=== PATIENT | female | born 1990 | race Caucasian/White ===

== ENCOUNTER 2016-10-30 13:14 | Emergency (ER) | payer OTHER ==
[~2016-10-30] VITALS: Ht 165.1 cm; Wt 88.0 kg
[~2016-10-30 13:14] MED LIST: ETONMIS VAGRING; SUMA25TA12 PO; TOPI25TA99 PO; TRAM-10 PO
[2016-10-30 13:16] VITALS: TEMP 36.8; Ht 165.1 cm; Wt 88.0 kg
[2016-10-30] MEDS ORDERED: KETOROLAC TROMETHAMINE 30 MG/ML VIAL IV STA (13:36)
[2016-10-30] MEDS ORDERED: DiphenhydrAMINE HCL 50 MG/ML VIAL IV STA (13:36)
[2016-10-30] MEDS ORDERED: SODIUM CHLORIDE 0.9% 1000ML 1,000 ML IV STA (13:36)
[2016-10-30] MEDS ORDERED: DEXAMETHASONE SOD INJ 10 MG/ML VIAL IV STA (13:36)
[2016-10-30] MEDS ORDERED: PROCHLORPERAZINE 5 MG/ML 2 ML VIAL IV STA (13:36)
--- NOTE | 2016-10-30 13:46 | EMERGENCY ROOM VISIT NOTE ---
History Report prepared by Vee: Phill Umanzor Under the Supervision of: Dr. Cameron Marin M.D. First contact with patient: 13:29 Chief Complaint: HEADACHE Stated Complaint: MIGRAINE, SEEING THINGS, MEMORY LOSS History of Present Illness The patient is a 26 year old female who presents to the Emergency Room with complaints of intermittent headaches beginning about 2 to 3 weeks ago. She has had headaches before like this, and was referred to the ER after calling her neurologist 2 days ago. She describes the pain as shooting, and reports some pain with moving her head. She denies having any neck pain. The patient took Imitrex about 2 hours ago. Source of History: patient Onset: about 2 to 3 weeks ago Position: head Quality: other (shooting) Timing: intermittent Modifying Factors (Worsening): movement (of the head) Associated Symptoms: No neck pain Review of Systems See HPI for pertinent positives & negatives. A total of 10 systems reviewed and were otherwise negative. Past Medical & Surgical Medical Problems: (1) Allergic reaction (2) anaphylaxis/, seizure (3) Anxiety (4) Asthma (5) Asthma, Unspecified (6) Bipolar I disorder (7) Contusion of multiple sites (8) Fall (9) Gallstones (10) Headache (11) Mast cell disorder (12) Ovarian cyst (13) Seizure-like activity Surgical Problems: (1) History of colonoscopy Family History Cancer Diabetes mellitus Endometriosis MOTHER Heart disease Hypertrophic cardiomyopathy FATHER aunt Kidney disease Kidney stones Lung disease PCOS SISTER Social History Smoking Status: Never Smoker Alcohol Use: none Drug Use: none Marital Status: Housing Status: lives with family Occupation Status: unemployed Current/Historical Medications Scheduled Albuterol Sulfate (Albuterol Sulfate Er), 4 MG PO BID Cromolyn Sodium (Mastocytosis) (Cromolyn Sodium), 10 ML PO QID Fluoxetine (Prozac), 60 MG PO DAILY Fluticasone Furoate-Vilanterol (Breo Ellipta 200-25 Mcg/INH), 1 PUFF INH DAILY Gabapentin (Gabapentin), 600 MG PO TID Loratadine (Claritin), 10 MG PO DAILY Metoprolol Tartrate (Lopressor) (Lopressor), 50 MG PO UD Midodrine Hcl (Midodrine Hcl), 5 MG PO QID Midodrine Hcl (Midodrine Hcl), 10 MG PO QID Montelukast Sod (Montelukast Sodium), 10 MG PO BID Pantoprazole (Protonix), 40 MG PO DAILY Prazosin HCl (Prazosin HCl), 1 MG PO HS Ranitidine Hcl (Zantac), 300 MG PO BID Sumatriptan Succinate (Imitrex), 100 MG PO PRN Topiramate (Topamax), 100 MG PO BIDM Scheduled PRN Albuterol Hfa (Ventolin Hfa), 2 PUFFS INH Q4-6HRS PRN for Wheezing Albuterol Sulf (Proventil 0.083% 2.5MG/3ML), 3 ML NEB QID PRN for SOB/Wheezing Diphenhydramine Hcl (Benadryl Allergy), 25-75 MG PO UD PRN for ALLERGIC REACTION Epinephrine (Epipen), 0.3 MG IM UD PRN for ALLERGIC REACTION Lorazepam (Lorazepam), 1 MG PO Q6H PRN for Anxiety Prochlorperazine Maleate (Compazine), 10 MG PO QID PRN for Nausea Trazodone Hcl (Trazodone), 50 MG PO HS PRN for Sleep Allergies Coded Allergies: Cetirizine (Verified Allergy, Severe, anapyhylaxis, 10/30/16) Hydroxyzine (Verified Allergy, Severe, anaphylaxis, 10/30/16) Quercetin (Verified Allergy, Severe, ANAPHYLAXIS, 08/05/16) Ziprasidone (Verified Allergy, Severe, Anaphylaxis, 08/05/16) Reported by PT Aripiprazole (Verified Allergy, Intermediate, ., 10/30/16) BEE STING (Verified Allergy, Intermediate, anaphylaxis, 10/30/16) Lurasidone (Verified Allergy, Intermediate, ., 10/30/16) Cefaclor (Verified Allergy, Mild, ANAPHYLAXIS, 10/30/16) CI Pigment Blue 63 (Verified Allergy, Unknown, ANAPHYLAXIS, 10/30/16) Clonazepam (Verified Allergy, Unknown, anaphylaxis, 10/30/16) Dexlansoprazole (Verified Allergy, Unknown, ANAPHYLAXIS, 10/30/16) Doxycycline (Verified Allergy, Unknown, UNKNOWN, 10/30/16) Iodinated Diagnostic Agents (Verified Allergy, Unknown, ANAPHYLAXIS, ) must have pretreats, Red Dye (Verified Allergy, Unknown, ANAPHYLAXIS, 10/30/16) Uncoded Nonscreenable Allergen (Verified Allergy, Unknown, ETHLYENEDIAMINE DIHYDROCHLORIDE- A COMMUNITY NUTRITION EDUCATOR GENERIC DRUGS, 10/30/16) ETHLYENEDIAMINE DIHYDROCHLORIDE- A COMMUNITY NUTRITION EDUCATOR GENERIC DRUGS: CAUSES ANAPHYLAXIS Physical Exam Vital Signs Date Time Temp Pulse Resp B/P Pulse Ox O2 Delivery O2 Flow Rate FiO2 10/30/16 15:04 54 18 129/68 99 Room Air 10/30/16 13:16 36.8 108 16 166/100 95 Room Air Physical Exam GENERAL: Patient is a healthy-appearing well-nourished female. No evidence of meningitis or encephalitis on exam. HEAD: Normocephalic atraumatic EYES: Ocular movements intact pupils equal and react to light OROPHARYNX mucous membranes are moist no exudates present no erythema or edema present NECK: Supple no nuchal rigidity CHEST: Good equal expansion LUNGS: Clear and equal to auscultation CARDIAC: Normal S1 and S2 ABDOMEN: Soft nontender no guarding BACK: No CVA tenderness EXTREMITIES: No pain upon palpation normal muscle strength in all groups no clubbing cyanosis or edema NEURO: Patient is following commands is answering questions appropriately. Alert and oriented x3 Cranial Nerves 2-12 grossly intact No evidence of meningitis or encephalitis on exam Medical Decision & Procedures Medications Administered Medications (Trade) Dose Ordered Sig/Geeta Route Start Time Stop Time Status Last Admin Dose Admin Sodium Chloride (Nss 1000ml) 1,000 ml @ 999 mls/hr Q1H1M STAT IV 10/30/16 13:36 10/30/16 14:36 DC 10/30/16 14:26 999 MLS/HR Prochlorperazine Edisylate (Compazine Inj) 10 mg NOW STAT IV 10/30/16 13:36 10/30/16 13:38 DC 10/30/16 14:30 10 MG Diphenhydramine HCl (Benadryl Inj) 50 mg NOW STAT IV 10/30/16 13:36 10/30/16 13:38 DC 10/30/16 14:29 50 MG Ketorolac Tromethamine (Toradol Inj) 30 mg NOW STAT IV 10/30/16 13:36 10/30/16 13:38 DC 10/30/16 13:36 30 MG Dexamethasone Sodium Phosphate (Decadron Inj) 10 mg NOW STAT IV 10/30/16 13:36 10/30/16 13:38 DC 10/30/16 14:31 10 MG ED Course 1331: Past medical records reviewed. The patient was evaluated in room C11B. A complete history and physical examination was performed. 1336: Ordered Decadron Inj 10 mg IV, Toradol Inj 30 mg IV, Benadryl Inj 50 mg IV , Compazine Inj 10 mg IV, and NSS 1,000 ml @ 999 mls/hr IV. 1418: The patient had a minor pseudo seizure while IV was being placed. 1550: Upon reexamination the patient is doing well. I discussed results and treatment plan with the patient. She verbalizes agreement and understanding. The patient is ready for discharge. Medical Decision Differential diagnosis: Etiologies such as migraine headache, meningitis, sinusitis, CO exposure, ICH, SAH, infection, tumor, headache, sinus thrombosis, arterial dissection, as well as others were entertained. This is a 26-year-old female who presents emergency department complaining of headache. The patient has had headaches similar to this when the past. She denies any evidence of meningitis encephalitis on examination. An IV was established, the patient given normal saline bolus, Toradol, Compazine, Benadryl , Decadron. Repeat examination at improvement patient's symptoms. I do believe that the patient is well enough to be discharged home for follow-up with Dr. Scott. Patient and family were in agreement with treatment plan. Impression Primary Impression: Headache Scribe Attestation The scribe's documentation has been prepared under my direction and personally reviewed by me in its entirety. I confirm that the note above accurately reflects all work, treatment, procedures, and medical decision making performed by me. Departure Information Dispostion Home / Self-Care Referrals Hoa Moeller D.O. (PCP) Patient Instructions Headache Pain, My [facility] Additional Instructions You have been examined and treated today on an emergency basis only. This is not a substitute for, or an effort to provide, complete comprehensive medical care. It is impossible to recognize and treat all injuries or illnesses in a single emergency department visit. It is therefore important that you follow up closely with Dr Moeller. Call as soon as possible for an appointment. Thank you for your time and consideration. I look forward to speaking with you again soon. Please don't hesitate to call us if you have any questions.
[2016-10-30] MEDS ORDERED: TOPI100T45 PO (14:12)
[2016-10-30 15:59] VITALS: BP 119/79; PULSE 69; O2SAT 97
[2016-11-05] MEDS ORDERED: MIDO5TAB PO (16:14)
[2016-11-05] MEDS ORDERED: METO50TA16 PO (20:25)
[2016-12-20] MEDS ORDERED: EPP3/2 IM (15:33)
[2016-12-20] MEDS ORDERED: FLUO20CA35 PO (15:59)
[2016-12-20] MEDS ORDERED: ALBU4TAB5 PO (20:25)
[2017-03-27] MEDS ORDERED: TRAZ50TA35 PO (14:13)
[2017-05-09] MEDS ORDERED: BUPRTAB PO (02:07)
[2017-05-09] MEDS ORDERED: PROC1TAB5 PO (10:51)
[2017-05-09] MEDS ORDERED: PRZ1 PO (10:52)
[2017-05-09] MEDS ORDERED: FLUT1INH7 INH (13:03)
[2017-05-09] MEDS ORDERED: CLR10 PO (13:07)
[2017-05-09] MEDS ORDERED: DIPH25CA65 PO (13:13)
[2017-05-09] MEDS ORDERED: SUMA100T16 PO (14:12)
== END 2016-10-30 16:00 | disposition home or self-care (01) ==
LOC: C.EDB 13:15 → C.EDC 16:00
DX: R51 Headache (principal); F41.9 Anxiety disorder, unspecified; J45.909 Unspecified asthma, uncomplicated; F31.9 Bipolar disorder, unspecified; D89.40 Mast cell activation, unspecified; N83.209 Unspecified ovarian cyst, unspecified side; Z83.3 Family history of diabetes mellitus; Z84.1 Family history of disorders of kidney and ureter

== ENCOUNTER 2016-11-05 20:29 | Emergency (ER) | payer OTHER ==
[~2016-11-05 20:29] MED LIST changes: -ETONMIS VAGRING; +METO50TA16 PO; +MIDO5TAB PO; -SUMA25TA12 PO; +TOPI100T45 PO; -TOPI25TA99 PO; -TRAM-10 PO
[2016-11-05 20:36] VITALS: TEMP 37.1; Ht 162.6 cm
[2016-11-05] MEDS ORDERED: SODIUM CHLORIDE 0.9% 1000ML 1,000 ML IV STA (21:04)
[2016-11-05] MEDS ORDERED: KETOROLAC TROMETHAMINE 30 MG/ML VIAL IV STA (21:04)
[2016-11-05] MEDS ORDERED: DiphenhydrAMINE HCL 50 MG/ML VIAL IV STA (21:04)
[2016-11-05] MEDS ORDERED: PROCHLORPERAZINE 5 MG/ML 2 ML VIAL IV STA (21:04)
[2016-11-05] MEDS ORDERED: DEXAMETHASONE SOD INJ 10 MG/ML VIAL IV ONE (21:15)
[2016-11-05] MEDS ORDERED: TOPI100T20 PO (21:31)
--- NOTE | 2016-11-05 21:55 | EMERGENCY ROOM VISIT NOTE ---
History Report prepared by Vee: Linnette Gonzales Under the Supervision of: Dr. Cameron Londono D.O. First contact with patient: 20:57 Chief Complaint: HEADACHE Stated Complaint: SEVERE MIGRAINE,PSYCH BREAKS WITH MIGRAINE History of Present Illness The patient is a 26 year old female who presents to the Emergency Room with complaints of constant headache for the past couple of hours. Her pain is located in the back of her head and behind her left eye. She has a history of migraine headaches, but states that she has been having more frequent migraines over the past two weeks. She saw her neurologist six days ago where they put her on a steroid. Today is the last day of her steroid. The patient states that the symptoms are similar to those of previous migraines except that they are worse. Per , the patient is having worsening "psychotic breaks...breaks from reality" and "pseudo-seizures" than she usually has with her migraine headaches. The patient called her neurologist and they instructed her to come here to the ED tonight to get her pain under control and they will follow-up with the patient in the office in 2 days. She is taking Compazine as needed. She rates her current pain as an 8/10 in severity. Source of History: patient Onset: couple of hours Position: head Symptom Intensity: 8/10 Timing: constant Note: Per , the patient is having worsening "psychotic breaks...breaks from reality" and "pseudo-seizures" than she usually has with her migraine headaches. Review of Systems See HPI for pertinent positives & negatives. A total of 10 systems reviewed and were otherwise negative. Past Medical & Surgical Medical Problems: (1) Allergic reaction (2) anaphylaxis/, seizure (3) Anxiety (4) Asthma (5) Asthma, Unspecified (6) Bipolar I disorder (7) Contusion of multiple sites (8) Fall (9) Gallstones (10) Headache (11) Mast cell disorder (12) Ovarian cyst (13) Seizure-like activity Surgical Problems: (1) History of colonoscopy Family History Cancer Diabetes mellitus Endometriosis MOTHER Heart disease Hypertrophic cardiomyopathy FATHER aunt Kidney disease Kidney stones Lung disease PCOS SISTER Social History Smoking Status: Never Smoker Alcohol Use: none Drug Use: none Marital Status: Housing Status: lives with family Occupation Status: unemployed Current/Historical Medications Scheduled Albuterol Sulfate (Albuterol Sulfate Er), 4 MG PO BID Cromolyn Sodium (Mastocytosis) (Cromolyn Sodium), 10 ML PO QID Fluoxetine (Prozac), 60 MG PO DAILY Fluticasone Furoate-Vilanterol (Breo Ellipta 200-25 Mcg/INH), 1 PUFF INH DAILY Gabapentin (Gabapentin), 600 MG PO TID Metoprolol Tartrate (Lopressor) (Lopressor), 50 MG PO UD Midodrine Hcl (Midodrine Hcl), 5 MG PO QID Midodrine Hcl (Midodrine Hcl), 10 MG PO QID Montelukast Sod (Montelukast Sodium), 10 MG PO BID Pantoprazole (Protonix), 40 MG PO DAILY Prazosin HCl (Prazosin HCl), 1 MG PO HS Ranitidine Hcl (Zantac), 300 MG PO BID Sumatriptan Succinate (Imitrex), 100 MG PO PRN Topiramate (Topamax), 100 MG PO QAM Topiramate (Topamax), 200 MG PO HS Scheduled PRN Albuterol Hfa (Ventolin Hfa), 2 PUFFS INH Q4-6HRS PRN for Wheezing Albuterol Sulf (Proventil 0.083% 2.5MG/3ML), 3 ML NEB QID PRN for SOB/Wheezing Diclofenac (Voltaren), 50 MG PO TID PRN for Pain Diphenhydramine Hcl (Benadryl Allergy), 25-75 MG PO UD PRN for ALLERGIC REACTION Epinephrine (Epipen), 0.3 MG IM UD PRN for ALLERGIC REACTION Loratadine (Claritin), 10 MG PO DAILY PRN for ALLERGIC REACTION Lorazepam (Lorazepam), 1 MG PO Q6H PRN for Anxiety Prochlorperazine Maleate (Compazine), 10 MG PO QID PRN for Nausea Trazodone Hcl (Trazodone), 50 MG PO HS PRN for Sleep Allergies Coded Allergies: Cetirizine (Verified Allergy, Severe, anapyhylaxis, 11/05/16) Hydroxyzine (Verified Allergy, Severe, anaphylaxis, 11/05/16) Quercetin (Verified Allergy, Severe, ANAPHYLAXIS, 11/05/16) Ziprasidone (Verified Allergy, Severe, Anaphylaxis, 11/05/16) Reported by PT Aripiprazole (Verified Allergy, Intermediate, ., 11/05/16) BEE STING (Verified Allergy, Intermediate, anaphylaxis, 11/05/16) Lurasidone (Verified Allergy, Intermediate, ., 11/05/16) Cefaclor (Verified Allergy, Mild, ANAPHYLAXIS, 11/05/16) CI Pigment Blue 63 (Verified Allergy, Unknown, ANAPHYLAXIS, 11/05/16) Clonazepam (Verified Allergy, Unknown, anaphylaxis, 11/05/16) Dexlansoprazole (Verified Allergy, Unknown, ANAPHYLAXIS, 11/05/16) Doxycycline (Verified Allergy, Unknown, UNKNOWN, 11/05/16) Iodinated Diagnostic Agents (Verified Allergy, Unknown, ANAPHYLAXIS, ) must have pretreats, Red Dye (Verified Allergy, Unknown, ANAPHYLAXIS, 11/05/16) Uncoded Nonscreenable Allergen (Verified Allergy, Unknown, ETHLYENEDIAMINE DIHYDROCHLORIDE- A LOAF COUNTER GENERIC DRUGS, 11/05/16) ETHLYENEDIAMINE DIHYDROCHLORIDE- A LOAF COUNTER GENERIC DRUGS: CAUSES ANAPHYLAXIS Physical Exam Vital Signs Date Time Temp Pulse Resp B/P Pulse Ox O2 Delivery O2 Flow Rate FiO2 11/05/16 20:36 37.1 64 20 125/65 99 Room Air Physical Exam CONSTITUTIONAL/VITAL SIGNS: Reviewed / noted above. GENERAL: Non-toxic in appearance. INTEGUMENTARY: Warm, dry, and [place]. HEAD: Normocephalic. EYES: without scleral icterus or trauma. ENT/OROPHARYNX: clear and moist. LYMPHADENOPATHY/NECK: Is supple without lymphadenopathy or meningismus. RESPIRATORY: Lungs clear and equal. CARDIOVASCULAR: Regular rate and rhythm. GI/ABDOMEN: Soft and nontender. No organomegaly or pulsatile mass. No rebound or guarding. Normal bowel sounds. EXTREMITIES: Warm and well perfused. BACK: No CVA tenderness. NEUROLOGICAL: Intact without focal deficits. PSYCHIATRIC: normal affect. MUSCULOSKELETAL: Normally developed with good muscle tone. Medical Decision & Procedures Medications Administered Medications (Trade) Dose Ordered Sig/Geeta Route Start Time Stop Time Status Last Admin Dose Admin Sodium Chloride (Nss 1000ml) 1,000 ml @ 999 mls/hr Q1H1M STAT IV 11/05/16 21:04 11/05/16 22:04 11/05/16 21:14 999 MLS/HR Prochlorperazine Edisylate (Compazine Inj) 10 mg NOW STAT IV 11/05/16 21:04 11/05/16 21:07 DC 11/05/16 21:26 10 MG Diphenhydramine HCl (Benadryl Inj) 50 mg NOW STAT IV 11/05/16 21:04 11/05/16 21:07 DC 11/05/16 21:26 50 MG Ketorolac Tromethamine (Toradol Inj) 30 mg NOW STAT IV 11/05/16 21:04 11/05/16 21:07 DC 11/05/16 21:26 30 MG Dexamethasone Sodium Phosphate (Decadron Inj) 10 mg NOW ONCE IV 11/05/16 21:15 11/05/16 21:16 DC 11/05/16 21:26 10 MG ED Course 2058: Previous medical records were reviewed. The patient was evaluated in room C7. A complete history and physical examination was performed. 2103: Toradol 30 mg IV, Benadryl 50 mg IV, Compazine 10 mg IV, NSS 1000 ml @ 999 mls/hr IV 2114: Decadron 10 mg IV 2152: I reassessed the patient at this time. She is feeling better and resting comfortably. I discussed the results and treatment plan with the patient. I answered all pertaining questions that she had. She expressed understanding and verbalized agreement. The patient will be discharged home. Medical Decision Differential includes: Acute intracranial bleed, trauma, meningitis, encephalitis, increased intracranial pressure, mass or mass effect, facial or dental infection, temporal arteritis, CVA, TIA, acute hypertensive emergency, sinusitis, carbon monoxide exposure. This is a 26-year-old female who presents to the ED with a chief complaint of a headache. The patient reports a history of migraines. She has recently been seeing her neurologist. She states that her migraine started 2 hours ago. She has had increasing events of migraines with past couple of weeks. She saw her neurologist on Monday and is due to see her neurologist this week, Dr. Scott. The patient states that she was placed on steroids. Today is her last day. She also has when necessary Compazine and recently has been given diclofenac. The patient's migraine is mostly on the left side. It is similar to prior migraines. Denies any fevers, recent illness or trauma. Vital signs are normal. Physical exam was unremarkable. The patient was treated with IV fluids , IV Toradol, IV Benadryl, IV Decadron IV Compazine. This has worked well for her in the past. She was feeling better and was felt to be stable for discharge. Impression Primary Impression: Migraine Scribe Attestation The scribe's documentation has been prepared under my direction and personally reviewed by me in its entirety. I confirm that the note above accurately reflects all work, treatment, procedures, and medical decision making performed by me. Departure Information Dispostion Home / Self-Care Referrals Hoa Moeller D.O. (PCP) Forms HOME CARE DOCUMENTATION FORM, IMPORTANT VISIT INFORMATION Patient Instructions My [facility] Additional Instructions Follow-up with your doctor for further care and evaluation in 1-2 days. Return to the emergency department for worsening or new symptoms or any concerns. You have been examined and treated today on an emergency basis only. This is not a substitute for, or an effort to provide, complete comprehensive medical care. It is impossible to recognize and treat all injuries or illnesses in a single emergency department visit. It is therefore important that you follow up closely with your doctor. Call as soon as possible for an appointment. Problem Qualifiers Primary Impression: Migraine Migraine type: unspecified Status migrainosus presence: without status migrainosus Intractability: not intractable Qualified Codes: G43.909 - Migraine, unspecified, not intractable, without status migrainosus
[2016-11-05 22:18] VITALS: BP 137/70; PULSE 66; O2SAT 100
[2016-12-20] MEDS ORDERED: EPP3/2 IM (15:33)
[2016-12-20] MEDS ORDERED: FLUO20CA35 PO (15:59)
[2016-12-20] MEDS ORDERED: ALBU4TAB5 PO (20:25)
[2017-03-27] MEDS ORDERED: TRAZ50TA35 PO (14:13)
[2017-05-09] MEDS ORDERED: BUPRTAB PO (02:07)
[2017-05-09] MEDS ORDERED: PROC1TAB5 PO (10:51)
[2017-05-09] MEDS ORDERED: PRZ1 PO (10:52)
[2017-05-09] MEDS ORDERED: FLUT1INH7 INH (13:03)
[2017-05-09] MEDS ORDERED: CLR10 PO (13:07)
[2017-05-09] MEDS ORDERED: DIPH25CA65 PO (13:13)
[2017-05-09] MEDS ORDERED: SUMA100T16 PO (14:12)
== END 2016-11-05 22:18 | disposition home or self-care (01) ==
LOC: C.EDB 20:30 → C.EDC 22:18
DX: G43.909 Migraine, unspecified, not intractable, without status migrainosus (principal); F31.9 Bipolar disorder, unspecified; F41.9 Anxiety disorder, unspecified; J45.909 Unspecified asthma, uncomplicated; N83.209 Unspecified ovarian cyst, unspecified side; G40.909 Epilepsy, unspecified, not intractable, without status epilepticus; K80.20 Calculus of gallbladder without cholecystitis without obstruction; Z87.828 Personal history of other (healed) physical injury and trauma; Z91.81 History of falling; Z98.890 Other specified postprocedural states; Z79.899 Other long term (current) drug therapy; Z88.8 Allergy status to other drugs, medicaments and biological substances; Z91.041 Radiographic dye allergy status; Z91.09 Other allergy status, other than to drugs and biological substances; Z91.030 Bee allergy status; Z80.9 Family history of malignant neoplasm, unspecified; Z83.3 Family history of diabetes mellitus; Z82.49 Family history of ischemic heart disease and other diseases of the circulatory system; Z84.1 Family history of disorders of kidney and ureter

== ENCOUNTER 2016-12-20 21:39 | Emergency (ER) | payer OTHER ==
[~2016-12-20] VITALS: Ht 165.1 cm; Wt 85.0 kg
[~2016-12-20 21:39] MED LIST changes: +ALBU4TAB5 PO; +EPP3/2 IM; +FLUO20CA35 PO; +TOPI100T20 PO
[2016-12-20 21:51] VITALS: Ht 165.1 cm; Wt 85.0 kg
[2016-12-20] MEDS ORDERED: ONDANSETRON INJ 2 MG/ML 2 ML VIAL ONE (21:56)
[2016-12-20] MEDS ORDERED: DiphenhydrAMINE HCL 50 MG/ML VIAL ONE (22:00)
[2016-12-20] MEDS ORDERED: LORAZEPAM 2 MG/ML 1 ML VIAL ONE (22:00)
[2016-12-20] MEDS ORDERED: SUMATRIPTAN SUCCINATE 6 MG/0.5 ML VIAL SQ STA (22:04)
[2016-12-20] MEDS ORDERED: METHYLPREDNISOLONE 125 MG VIAL IV STA (22:04)
[2016-12-20] MEDS ORDERED: DiphenhydrAMINE HCL 50 MG/ML VIAL IV STA ×2 (22:04→23:38)
[2016-12-20] MEDS ORDERED: SODIUM CHLORIDE 0.9% 1000ML 1,000 ML IV STA (22:08)
--- NOTE | 2016-12-20 22:33 | EMERGENCY ROOM VISIT NOTE ---
History Report prepared by Milesibhelen: Jean Marie Khan Under the Supervision of: Genevieve aFrahO. First contact with patient: 21:57 Chief Complaint: OTHER COMPLAINT Stated Complaint: NEASUEA, SOB, MASS CELL SYNDROME ATTACK History of Present Illness The patient is a 26 year old female who presents to the Emergency Room via EMS with complaints of persistent generalized itchiness starting about 3 hours ago. She denies any rash or hives. 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 She administered 3 EpiPen prior to arrival. She was given 50 mg Benadryl, 4 mg Zofran, and Nebulizer treatment by EMS with some relief. She currently continues to complain of some itchiness. She also reports some lip swelling and a dry mouth. The patient also complains of a throbbing headache. She describes it to be similar to her past migraine headaches. She administered an Imitrex shot about 2 hours ago without relief. She denies chest pain, shortness of breath, or any other complaints. Source of History: patient Onset: about 3 hours ago Position: other (global) Quality: other (itchiness) Timing: other (persistent) Modifying Factors (Relieving): other (3 EpiPen; 50 mg Benadryl, 4 mg Zofran , and Nebulizer treatment by EMS with some relief ) Associated Symptoms: + headache, No SOB, No chest pain Review of Systems See HPI for pertinent positives and negatives. A total of ten systems were reviewed and were otherwise negative. Past Medical & Surgical Medical Problems: (1) Allergic reaction (2) anaphylaxis/, seizure (3) Anxiety (4) Asthma (5) Asthma, Unspecified (6) Bipolar I disorder (7) Contusion of multiple sites (8) Fall (9) Gallstones (10) Headache (11) Mast cell disorder (12) Ovarian cyst (13) Seizure-like activity Surgical Problems: (1) History of colonoscopy Family History Cancer Diabetes mellitus Endometriosis MOTHER Heart disease Hypertrophic cardiomyopathy FATHER aunt Kidney disease Kidney stones Lung disease PCOS SISTER Social History Smoking Status: Never Smoker Alcohol Use: none Drug Use: none Marital Status: Housing Status: lives with family Occupation Status: unemployed Current/Historical Medications Scheduled Cromolyn Sodium (Mastocytosis) (Cromolyn Sodium), 10 ML PO QID Fexofenadine Hcl (Shanell Allergy), 180 MG PO BID Fluoxetine (Prozac), 60 MG PO DAILY Fluticasone Furoate-Vilanterol (Breo Ellipta 200-25 Mcg/INH), 1 PUFF INH DAILY Gabapentin (Gabapentin), 600 MG PO TID Midodrine Hcl (Midodrine Hcl), 10 MG PO QID Montelukast Sod (Montelukast Sodium), 10 MG PO BID Pantoprazole (Protonix), 40 MG PO DAILY Prazosin HCl (Prazosin HCl), 1 MG PO HS Ranitidine Hcl (Zantac), 300 MG PO BID Topiramate (Topamax), 200 MG PO BID Scheduled PRN Albuterol Hfa (Ventolin Hfa), 2 PUFFS INH Q4-6HRS PRN for Wheezing Albuterol Sulf (Proventil 0.083% 2.5MG/3ML), 3 ML NEB QID PRN for SOB/Wheezing Albuterol Sulfate (Albuterol Sulfate Er), 4 MG PO BID PRN for SOB/Wheezing Diclofenac (Voltaren), 50 MG PO TID PRN for Pain Diphenhydramine Hcl (Benadryl Allergy), 25-75 MG PO UD PRN for ALLERGIC REACTION Epinephrine (Epipen), 0.3 MG IM UD PRN for ALLERGIC REACTION Loratadine (Claritin), 10 MG PO DAILY PRN for Allergy Symptoms Lorazepam (Lorazepam), 1 MG PO Q6H PRN for Anxiety Prochlorperazine Maleate (Compazine), 10 MG PO QID PRN for Nausea Sumatriptan Succinate (Imitrex), 100 MG PO UD PRN for Headache Sumatriptan Succinate (Imitrex Statdose), 6 MG IM UD PRN for Headache Trazodone Hcl (Trazodone), 50 MG PO HS PRN for Sleep Allergies Coded Allergies: Cetirizine (Verified Allergy, Severe, anapyhylaxis, 11/05/16) Hydroxyzine (Verified Allergy, Severe, anaphylaxis, 11/05/16) Quercetin (Verified Allergy, Severe, ANAPHYLAXIS, 11/05/16) Ziprasidone (Verified Allergy, Severe, Anaphylaxis, 11/05/16) Reported by PT Aripiprazole (Verified Allergy, Intermediate, ., 11/05/16) BEE STING (Verified Allergy, Intermediate, anaphylaxis, 11/05/16) Lurasidone (Verified Allergy, Intermediate, ., 11/05/16) Cefaclor (Verified Allergy, Mild, ANAPHYLAXIS, 11/05/16) CI Pigment Blue 63 (Verified Allergy, Unknown, ANAPHYLAXIS, 11/05/16) Clonazepam (Verified Allergy, Unknown, anaphylaxis, 11/05/16) Dexlansoprazole (Verified Allergy, Unknown, ANAPHYLAXIS, 11/05/16) Doxycycline (Verified Allergy, Unknown, UNKNOWN, 11/05/16) Iodinated Diagnostic Agents (Verified Allergy, Unknown, ANAPHYLAXIS, ) must have pretreats, Red Dye (Verified Allergy, Unknown, ANAPHYLAXIS, 11/05/16) Uncoded Nonscreenable Allergen (Verified Allergy, Unknown, ETHLYENEDIAMINE DIHYDROCHLORIDE- A SMASH FIXER GENERIC DRUGS, 11/05/16) ETHLYENEDIAMINE DIHYDROCHLORIDE- A SMASH FIXER GENERIC DRUGS: CAUSES ANAPHYLAXIS Physical Exam Vital Signs Date Time Temp Pulse Resp B/P Pulse Ox O2 Delivery O2 Flow Rate FiO2 12/20/16 23:09 101 23 97 12/20/16 22:39 94 29 128/56 98 12/20/16 22:25 Room Air 12/20/16 22:25 Room Air 12/20/16 22:09 109 29 97 12/20/16 21:51 36.9 122 20 131/43 97 Room Air 12/20/16 21:50 116 12/20/16 21:44 131/43 Physical Exam GENERAL: Awake, alert, well-appearing, in no distress HENT: Normocephalic, atraumatic. Oropharynx unremarkable. EYES: Normal conjunctiva. Sclera non-icteric. NECK: Supple. No nuchal rigidity. FROM. No JVD. RESPIRATORY: Clear to auscultation. CARDIAC: Tachycardic rate, normal rhythm. Extremities warm and well perfused. Pulses equal. ABDOMEN: Soft, non-distended. No tenderness to palpation. No rebound or guarding. No masses. RECTAL: Deferred. MUSCULOSKELETAL: Chest examination reveals no tenderness. The back is symmetrical on inspection without obvious abnormality. There is no CVA tenderness to palpation. No joint edema. LOWER EXTREMITIES: Calves are equal size bilaterally and non-tender. No edema. No discoloration. NEURO: Normal sensorium. No sensory or motor deficits noted. SKIN: No rash or jaundice noted. Medical Decision & Procedures Laboratory Results 12/20/16 23:01 Red Blood Count 5.01, Mean Corpuscular Volume 83.6, Mean Corpuscular Hemoglobin 29.3, Mean Corpuscular Hemoglobin Concent 35.1, Mean Platelet Volume 9.2 12/20/16 22:45 Test 12/20/16 22:45 12/20/16 23:01 Anion Gap 13.0 mmol/L (3-11) Est Creatinine Clear Calc Drug Dose 84.2 ml/min Estimated GFR () 80.8 Estimated GFR (Non- 69.7 BUN/Creatinine Ratio 12.3 (10-20) Total Bilirubin 0.3 mg/dl (0.2-1) Direct Bilirubin < 0.1 mg/dl (0-0.2) Aspartate Amino Transf (AST/SGOT) 22 U/L (15-37) Alanine Aminotransferase (ALT/SGPT) 60 U/L (12-78) Alkaline Phosphatase 110 U/L (45-117) Total Protein 6.9 gm/dl (6.4-8.2) Albumin 4.3 gm/dl (3.4-5.0) White Blood Count 18.64 K/uL (4.8-10.8) Red Blood Count 5.01 M/uL (4.2-5.4) Hemoglobin 14.7 g/dL (12.0-16.0) Hematocrit 41.9 % (37-47) Mean Corpuscular Volume 83.6 fL (80-100) Mean Corpuscular Hemoglobin 29.3 pg (25-34) Mean Corpuscular Hemoglobin Concent 35.1 g/dl (32-36) Platelet Count 306 K/uL (130-400) Mean Platelet Volume 9.2 fL (7.4-10.4) RDW Standard Deviation 43.4 fL (36.4-46.3) RDW Coefficient of Variation 14.2 % (11.5-14.5) Laboratory results reviewed by me Medications Administered Medications (Trade) Dose Ordered Sig/Geeta Route Start Time Stop Time Status Last Admin Dose Admin Diphenhydramine HCl (Benadryl Inj) 50 mg NOW STAT IV 12/20/16 22:04 12/20/16 22:08 DC 12/20/16 22:16 50 MG Methylprednisolone Sodium Succinate (Solu-Medrol IV) 125 mg NOW STAT IV 12/20/16 22:04 12/20/16 22:08 DC 12/20/16 22:16 125 MG Sumatriptan Succinate 6 mg 6 mg NOW STAT SQ 12/20/16 22:04 12/20/16 22:08 DC 12/20/16 22:17 6 MG Sodium Chloride (Nss 1000ml) 1,000 ml @ 999 mls/hr Q1H1M STAT IV 12/20/16 22:08 12/20/16 23:08 DC 12/20/16 22:08 999 MLS/HR ED Course 2157: The patient was evaluated in room C09. A complete history and physical exam was performed. 2204: Imitrex Sq Inj 6 mg SQ, Solu-Medrol IV 125 mg IV, Benadryl Inj 50 mg IV 2208: Sodium Chloride 1000 ml @ 999 mls/hr IV 2335: Potassium Chloride 40 meq PO 2336: I reevaluated the patient who continues to complain of itchiness. Discussed results and discharge instructions: She verbalized understanding and agreement. The patient is ready for discharge. Medical Decision Differential diagnosis includes but is not limited to allergic reaction, exacerbation of Mast Cell Activation Disorder, anxiety. Resting in no distress on repeat examination at 2340 requesting a another dose of Benadryl. Patient's heart rate has decreased to 102. Patient is in no distress. Patient also had her potassium replaced. I discussed evaluation the patient with her significant other at bedside. Impression Primary Impression: Allergic reaction Additional Impression: Mast cell disorder Scribe Attestation The scribe's documentation has been prepared under my direction and personally reviewed by me in its entirety. I confirm that the note above accurately reflects all work, treatment, procedures, and medical decision making performed by me. Departure Information Dispostion Home / Self-Care Referrals Hoa Moeller D.O. (PCP) Forms HOME CARE DOCUMENTATION FORM, IMPORTANT VISIT INFORMATION, WORK / SCHOOL INSTRUCTIONS Patient Instructions ED Allergic Reaction General Other, My [facility] Health Problem Qualifiers
[2016-12-20 23:09] LABS: HEMATOCRIT 41.9 % (37-47); MEAN CELL VOLUME 83.6 fL (80-100); MEAN CORPUSCULAR HEMOGLOBIN 29.3 pg (25-34); MEAN CORPUSCULAR HGB CONC 35.1 g/dl (32-36); MEAN PLATELET VOLUME 9.2 fL (7.4-10.4); PLATELET COUNT 306 K/uL (130-400); RED BLOOD COUNT 5.01 M/uL (4.2-5.4); WHITE BLOOD COUNT 18.64 K/uL (4.8-10.8)
[2016-12-20 23:18] LABS: ALT/SGPT 60 U/L (12-78); BLOOD UREA NITROGEN 14 mg/dl (7-18); BUN/CREATININE RATIO 12.3 (10-20); CARBON DIOXIDE 19 mmol/L (21-32); CHLORIDE 112 mmol/L (98-107); GLUCOSE 138 mg/dl (70-99); SODIUM 144 mmol/L (136-145)
[2016-12-20 23:21] LABS: ALKALINE PHOSPHATASE 110 U/L (45-117); AST/SGOT 22 U/L (15-37)
[2016-12-20] MEDS ORDERED: POTASSIUM CHLORIDE 10 MEQ TABCR PO STA (23:35)
[2016-12-20 23:41] LABS: BASO % 0.2 %; BASO ABS # 0.03 K/uL (0-0.2); COMPLETE YES; EOS % 0.2 %; IG% 0.3 %; LYMPH % 18.7 %; LYMPH ABS # 3.48 K/uL (1.2-3.4); MONO % 5.8 %; NEUT % 74.8 %
[2016-12-20 23:58] LABS: CALCIUM 9.7 mg/dl (8.5-10.1)
[2016-12-21 00:14] VITALS: BP 134/73; PULSE 88; TEMP 36.9; O2SAT 98
[2017-03-27] MEDS ORDERED: TRAZ50TA35 PO (14:13)
[2017-05-09] MEDS ORDERED: BUPRTAB PO (02:07)
[2017-05-09] MEDS ORDERED: PROC1TAB5 PO (10:51)
[2017-05-09] MEDS ORDERED: PRZ1 PO (10:52)
[2017-05-09] MEDS ORDERED: FLUT1INH7 INH (13:03)
[2017-05-09] MEDS ORDERED: CLR10 PO (13:07)
[2017-05-09] MEDS ORDERED: DIPH25CA65 PO (13:13)
[2017-05-09] MEDS ORDERED: SUMA100T16 PO (14:12)
== END 2016-12-21 00:15 | disposition home or self-care (01) ==
LOC: EDBD 21:39 → C.EDC 21:42
DX: T78.40XA Allergy, unspecified, initial encounter (principal); D89.40 Mast cell activation, unspecified; R51 Headache; F41.9 Anxiety disorder, unspecified; F31.9 Bipolar disorder, unspecified; J45.909 Unspecified asthma, uncomplicated; Z79.899 Other long term (current) drug therapy; Z87.19 Personal history of other diseases of the digestive system; Z87.42 Personal history of other diseases of the female genital tract; Z87.828 Personal history of other (healed) physical injury and trauma; Z82.49 Family history of ischemic heart disease and other diseases of the circulatory system; Z83.3 Family history of diabetes mellitus; Z83.6 Family history of other diseases of the respiratory system; Z84.1 Family history of disorders of kidney and ureter; Z84.89 Family history of other specified conditions; X58.XXXA Exposure to other specified factors, initial encounter

== ENCOUNTER 2016-12-22 16:06 | Emergency (ER) | payer OTHER ==
[~2016-12-22] VITALS: Ht 165.1 cm; Wt 85.9 kg
[~2016-12-22 16:06] MED LIST changes: -METO50TA16 PO; -MIDO5TAB PO; -TOPI100T20 PO; -TOPI100T45 PO
[2016-12-22 16:22] VITALS: TEMP 36.8; Ht 165.1 cm; Wt 85.9 kg
[2016-12-22] MEDS ORDERED: SODIUM CHLORIDE 0.9% 1000ML 1,000 ML IV STA ×2 (16:31→16:43)
[2016-12-22] MEDS ORDERED: LORAZEPAM 2 MG/ML 1 ML VIAL IV STA (16:31)
[2016-12-22] MEDS ORDERED: METHYLPREDNISOLONE 125 MG VIAL IV STA (16:43)
[2016-12-22] MEDS ORDERED: DiphenhydrAMINE HCL 50 MG/ML VIAL IV STA (16:43)
--- NOTE | 2016-12-22 16:56 | EMERGENCY ROOM VISIT NOTE ---
History First contact with patient: 16:11 Chief Complaint: SEIZURE Stated Complaint: PSEUDO SIEZURES, MASS CELL EPISODE Nursing Triage Summary: Pt having a flare up of Mast Cell Syndrome, believes she had a 15-20 minute seizure today in which her boyfriend witnessed. She received two administeration from her epi-pen, one from her and the other from her . She also reported hitting her head off concrete from a fall around lunch time today. No laceration/hematoma appreciated it area of contact. Prior medications: Epi pen x2, 50 mg Benadryll PO History of Present Illness The patient is a 26 year old female who presents to the Emergency Room with complaints of seizures and migraines. The patient has a migrain this morning and explains what sounds to be dissociate fugue states during her migraines where she is confused and runs away from home. She ran away from home this morning and collapsed on a neighbors lawn and passed out. She was able to call to construction workers and instructed them to inject her with an EpiPen she had on her person. She then called her who picked her up, brought her home where she continued to have symptoms of her Mast Cell Syndrome including a swollen tongue and difficulty breathing. She was injected by her with another EpiPen. She then had an episode of seizures where she states that her whole body was shaking and she gets the seizures with migraine headaches. She was then given Imitrex from her after which he called 911. In the ambulance on the way to the hospital she states that she had another episode of seizures. She currently feels like she is going to have a seizure during which time her visual field has the appearance of "bugs". She complains of pain and feeling uncomfortable all over. She also states that her vision is blurring and has photophobia. Denies any fever, chills, or vomiting. Review of Systems See HPI for pertinent positives and negatives. A total of ten systems were reviewed and were otherwise negative. Past Medical/Surgical History Medical Problems: (1) Allergic reaction (2) anaphylaxis/, seizure (3) Anxiety (4) Asthma (5) Asthma, Unspecified (6) Bipolar I disorder (7) Contusion of multiple sites (8) Fall (9) Gallstones (10) Headache (11) Mast cell disorder (12) Ovarian cyst (13) Seizure-like activity Surgical Problems: (1) History of colonoscopy Family History Cancer Diabetes mellitus Endometriosis MOTHER Heart disease Hypertrophic cardiomyopathy FATHER aunt Kidney disease Kidney stones Lung disease PCOS SISTER Social History Smoking Status: Never Smoker Alcohol Use: none Drug Use: none Marital Status: Housing Status: lives with family Occupation Status: unemployed Current/Historical Medications Scheduled Cromolyn Sodium (Mastocytosis) (Cromolyn Sodium), 10 ML PO QID Fexofenadine Hcl (Shanell Allergy), 180 MG PO BID Fluoxetine (Prozac), 60 MG PO DAILY Fluticasone Furoate-Vilanterol (Breo Ellipta 200-25 Mcg/INH), 1 PUFF INH DAILY Gabapentin (Gabapentin), 600 MG PO TID Midodrine Hcl (Midodrine Hcl), 10 MG PO QID Montelukast Sod (Montelukast Sodium), 10 MG PO BID Pantoprazole (Protonix), 40 MG PO DAILY Prazosin HCl (Prazosin HCl), 1 MG PO HS Ranitidine Hcl (Zantac), 300 MG PO BID Topiramate (Topamax), 200 MG PO BID Scheduled PRN Albuterol Hfa (Ventolin Hfa), 2 PUFFS INH Q4-6HRS PRN for Wheezing Albuterol Sulf (Proventil 0.083% 2.5MG/3ML), 3 ML NEB QID PRN for SOB/Wheezing Albuterol Sulfate (Albuterol Sulfate Er), 4 MG PO BID PRN for SOB/Wheezing Diclofenac (Voltaren), 50 MG PO TID PRN for Pain Diphenhydramine Hcl (Benadryl Allergy), 25-75 MG PO UD PRN for ALLERGIC REACTION Epinephrine (Epipen), 0.3 MG IM UD PRN for ALLERGIC REACTION Loratadine (Claritin), 10 MG PO DAILY PRN for Allergy Symptoms Lorazepam (Lorazepam), 1 MG PO Q6H PRN for Anxiety Prochlorperazine Maleate (Compazine), 10 MG PO QID PRN for Nausea Sumatriptan Succinate (Imitrex), 100 MG PO UD PRN for Headache Sumatriptan Succinate (Imitrex Statdose), 6 MG IM UD PRN for Headache Trazodone Hcl (Trazodone), 50 MG PO HS PRN for Sleep Allergies Coded Allergies: Cetirizine (Verified Allergy, Severe, anapyhylaxis, 11/05/16) Hydroxyzine (Verified Allergy, Severe, anaphylaxis, 11/05/16) Quercetin (Verified Allergy, Severe, ANAPHYLAXIS, 11/05/16) Ziprasidone (Verified Allergy, Severe, Anaphylaxis, 11/05/16) Reported by PT Aripiprazole (Verified Allergy, Intermediate, ., 11/05/16) BEE STING (Verified Allergy, Intermediate, anaphylaxis, 11/05/16) Lurasidone (Verified Allergy, Intermediate, ., 11/05/16) Cefaclor (Verified Allergy, Mild, ANAPHYLAXIS, 11/05/16) CI Pigment Blue 63 (Verified Allergy, Unknown, ANAPHYLAXIS, 11/05/16) Clonazepam (Verified Allergy, Unknown, anaphylaxis, 11/05/16) Dexlansoprazole (Verified Allergy, Unknown, ANAPHYLAXIS, 11/05/16) Doxycycline (Verified Allergy, Unknown, UNKNOWN, 11/05/16) Iodinated Diagnostic Agents (Verified Allergy, Unknown, ANAPHYLAXIS, ) must have pretreats, Red Dye (Verified Allergy, Unknown, ANAPHYLAXIS, 11/05/16) Uncoded Nonscreenable Allergen (Verified Allergy, Unknown, ETHLYENEDIAMINE DIHYDROCHLORIDE- A MANAGER PAYROLL GENERIC DRUGS, 11/05/16) ETHLYENEDIAMINE DIHYDROCHLORIDE- A MANAGER PAYROLL GENERIC DRUGS: CAUSES ANAPHYLAXIS Physical Exam Vital Signs Date Time Temp Pulse Resp B/P Pulse Ox O2 Delivery O2 Flow Rate FiO2 12/22/16 18:02 88 18 129/56 97 Room Air 12/22/16 17:15 93 18 136/85 97 Room Air 12/22/16 16:22 36.8 95 18 141/65 98 Room Air 12/22/16 16:22 103 Physical Exam GENERAL: Awake, alert, well-appearing, in no distress HENT: Normocephalic, atraumatic. Oropharynx unremarkable. EYES: Normal conjunctiva. Sclera non-icteric. NECK: Supple. Trachea midline. No nuchal rigidity. RESPIRATORY: Clear to auscultation. CARDIAC: Regular rate, normal rhythm. Extremities warm and well perfused. Pulses equal. ABDOMEN: Soft, non-distended. Tender to palpation in all 4 quadrants. No rebound or guarding. No masses. RECTAL: Deferred. MUSCULOSKELETAL: Chest examination reveals tenderness to palpation. The back is symmetrical on inspection without obvious abnormality. There is no CVA tenderness to palpation. No joint edema. LOWER EXTREMITIES: Calves are equal size bilaterally and non-tender. No edema. No discoloration. NEURO: Normal sensorium. No sensory or motor deficits noted. SKIN: No rash or jaundice noted. Medical Decision & Procedures Laboratory Results 12/22/16 16:56 Red Blood Count 5.33, Mean Corpuscular Volume 83.9, Mean Corpuscular Hemoglobin 28.9, Mean Corpuscular Hemoglobin Concent 34.5, Mean Platelet Volume 9.2, Neutrophils (%) (Auto) 76.4, Lymphocytes (%) (Auto) 17.7, Monocytes (%) (Auto) 5.2, Eosinophils (%) (Auto) 0.3, Basophils (%) (Auto) 0.2, Neutrophils # (Auto) 11.73, Lymphocytes # (Auto) 2.71, Monocytes # (Auto) 0.79, Eosinophils # (Auto) 0.04, Basophils # (Auto) 0.03 12/22/16 16:56 Test 12/22/16 16:56 White Blood Count 15.33 K/uL (4.8-10.8) Red Blood Count 5.33 M/uL (4.2-5.4) Hemoglobin 15.4 g/dL (12.0-16.0) Hematocrit 44.7 % (37-47) Mean Corpuscular Volume 83.9 fL (80-100) Mean Corpuscular Hemoglobin 28.9 pg (25-34) Mean Corpuscular Hemoglobin Concent 34.5 g/dl (32-36) Platelet Count 277 K/uL (130-400) Mean Platelet Volume 9.2 fL (7.4-10.4) Neutrophils (%) (Auto) 76.4 % Lymphocytes (%) (Auto) 17.7 % Monocytes (%) (Auto) 5.2 % Eosinophils (%) (Auto) 0.3 % Basophils (%) (Auto) 0.2 % Neutrophils # (Auto) 11.73 K/uL (1.4-6.5) Lymphocytes # (Auto) 2.71 K/uL (1.2-3.4) Monocytes # (Auto) 0.79 K/uL (0.11-0.59) Eosinophils # (Auto) 0.04 K/uL (0-0.5) Basophils # (Auto) 0.03 K/uL (0-0.2) RDW Standard Deviation 44.1 fL (36.4-46.3) RDW Coefficient of Variation 14.3 % (11.5-14.5) Immature Granulocyte % (Auto) 0.2 % Immature Granulocyte # (Auto) 0.03 K/uL (0.00-0.02) Red Blood Cell Morphology Unremarkable Anion Gap 9.0 mmol/L (3-11) Est Creatinine Clear Calc Drug Dose 77.6 ml/min Estimated GFR () 72.7 Estimated GFR (Non- 62.8 BUN/Creatinine Ratio 10.7 (10-20) Calcium Level 9.3 mg/dl (8.5-10.1) Total Creatine Kinase 21 U/L (26-192) Troponin I < 0.015 ng/ml (0-0.045) Medications Administered Medications (Trade) Dose Ordered Sig/Geeta Route Start Time Stop Time Status Last Admin Dose Admin Lorazepam 1 mg 1 mg NOW STAT IV 12/22/16 16:31 12/22/16 16:33 DC 12/22/16 16:57 1 MG Sodium Chloride (Nss 1000ml) 1,000 ml @ 999 mls/hr Q1H1M STAT IV 12/22/16 16:31 12/22/16 17:31 DC 12/22/16 16:57 999 MLS/HR Methylprednisolone Sodium Succinate (Solu-Medrol IV) 80 mg NOW STAT IV 12/22/16 16:43 12/22/16 16:45 DC 12/22/16 17:02 80 MG Diphenhydramine HCl 50 mg 50 mg NOW STAT IV 12/22/16 16:43 12/22/16 16:45 DC 12/22/16 17:02 50 MG Sodium Chloride (Nss 1000ml) 1,000 ml @ 999 mls/hr Q1H1M STAT IV 12/22/16 16:43 12/22/16 17:43 DC 12/22/16 16:57 999 MLS/HR Prochlorperazine Edisylate (Compazine Inj) 10 mg NOW STAT IV 12/22/16 17:22 12/22/16 17:24 DC 12/22/16 17:28 10 MG Ketorolac Tromethamine (Toradol Inj) 30 mg NOW STAT IV 12/22/16 17:22 12/22/16 17:24 DC 12/22/16 17:29 30 MG Medical Decision Patient is a 26 year old female that complains of seizures IV Fluids, CBC, BMP, Troponin, EKG, Urine Test, UA, Urine Drug Screen , CK Ativan 1mg Solumedrol 80mg 5:24: Patient having pseudoseizures in room. When tried to perform drop arm test patient woke up and moved arm - Patient woke up and stated she was at work, and pointed to the tv and stated it was a camera. Her says that when she wakes up from the pseudoseizures she is often confused and believed she seen bugs or cameras. - Patient states she regularly gets Ativan, Compazine, and Toradol for her migraines - After patient treated with Compazine and Toradol patient was able to rest comfortably in bed - Discussed inpatient psych evaluation that the patient refused due to her belief that her symptoms are mostly related to her migraines - She also states that she does not have any intention of hurting herself and she feels safe going home - Patient agrees with treatment plan and ready for discharge. Impression Primary Impression: Seizure-like activity Additional Impression: Migraine headache Departure Information Referrals Hoa Moeller D.O. (PCP) Patient Instructions [facility] Problem Qualifiers Additional Impression: Migraine headache Migraine type: unspecified Status migrainosus presence: without status migrainosus Intractability: not intractable Qualified Codes: G43.909 - Migraine, unspecified, not intractable, without status migrainosus
[2016-12-22 17:04] LABS: HEMATOCRIT 44.7 % (37-47); MEAN CELL VOLUME 83.9 fL (80-100); MEAN CORPUSCULAR HEMOGLOBIN 28.9 pg (25-34); MEAN CORPUSCULAR HGB CONC 34.5 g/dl (32-36); MEAN PLATELET VOLUME 9.2 fL (7.4-10.4); PLATELET COUNT 277 K/uL (130-400); RED BLOOD COUNT 5.33 M/uL (4.2-5.4); WHITE BLOOD COUNT 15.33 K/uL (4.8-10.8)
[2016-12-22 17:20] LABS: BLOOD UREA NITROGEN 13 mg/dl (7-18); BUN/CREATININE RATIO 10.7 (10-20); CALCIUM 9.3 mg/dl (8.5-10.1); CARBON DIOXIDE 22 mmol/L (21-32); CHLORIDE 112 mmol/L (98-107); GLUCOSE 100 mg/dl (70-99); POTASSIUM 3.4 mmol/L (3.5-5.1); SODIUM 143 mmol/L (136-145)
[2016-12-22] MEDS ORDERED: KETOROLAC TROMETHAMINE 30 MG/ML VIAL IV STA (17:22)
[2016-12-22] MEDS ORDERED: PROCHLORPERAZINE 5 MG/ML 2 ML VIAL IV STA (17:22)
[2016-12-22 17:27] LABS: BASO % 0.2 %; BASO ABS # 0.03 K/uL (0-0.2); COMPLETE YES; EOS % 0.3 %; IG% 0.2 %; LYMPH % 17.7 %; LYMPH ABS # 2.71 K/uL (1.2-3.4); MONO % 5.2 %; NEUT % 76.4 %
--- NOTE | 2016-12-22 17:57 | EMERGENCY ROOM VISIT NOTE ---
History Report prepared by Vee: Krista Guaman Under the Supervision of: Dr. Leonid Alvarado M.D. First contact with patient: 16:11 Chief Complaint: SEIZURE Stated Complaint: PSEUDO SIEZURES, MASS CELL EPISODE Nursing Triage Summary: Pt having a flare up of Mast Cell Syndrome, believes she had a 15-20 minute seizure today in which her boyfriend witnessed. She received two administeration from her epi-pen, one from her and the other from her . She also reported hitting her head off concrete from a fall around lunch time today. No laceration/hematoma appreciated it area of contact. 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 This morning the patient was experiencing a migraine headache. She thinks that the stress of her Mast Cell Syndrome is what causes her migraines. She became confused and ran out of her house and collapsed under some bushes on her neighbor's lawn. She states that she lost consciousness. When she regained consciousness she saw some construction workers nearby and yelled for help. She was able to instruct one of the workers to inject her with her Epi Pen. She then called her on the phone and he came to get her. Her got her back into their house and injected her with a second Epi Pen. The patient then had a seizure that lasted 15-20 minutes and was witnessed by her . He gave her Imitrex after the seizure resolved while they waited for the ambulance to arrive. The patient had a second seizure in the ambulance en route to the ED. She is still complaining of a headache. She notes photophobia, chest pain, nausea, and shortness of breath. The patient rates her current pain as a 3/10. She is feeling itchy. 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 She denies any chance of . Source of History: patient Onset: BED MANAGER Position: other (global) Symptom Intensity: 3/10 Quality: other (seizures) Timing: other (multiple episodes) Modifying Factors (Worsening): other (stress) Modifying Factors (Relieving): other (Imitrex) Associated Symptoms: + LOC, + SOB, + chest pain, + headache, + nausea Review of Systems See HPI for pertinent positives & negatives. A total of 10 systems reviewed and were otherwise negative. Past Medical & Surgical Medical Problems: (1) Allergic reaction (2) anaphylaxis/, seizure (3) Anxiety (4) Asthma (5) Asthma, Unspecified (6) Bipolar I disorder (7) Contusion of multiple sites (8) Fall (9) Gallstones (10) Headache (11) Mast cell disorder (12) Ovarian cyst (13) Seizure-like activity Surgical Problems: (1) History of colonoscopy Family History Cancer Diabetes mellitus Endometriosis MOTHER Heart disease Hypertrophic cardiomyopathy FATHER aunt Kidney disease Kidney stones Lung disease PCOS SISTER Social History Smoking Status: Never Smoker Alcohol Use: none Drug Use: none Marital Status: Housing Status: lives with family Occupation Status: unemployed Current/Historical Medications Scheduled Cromolyn Sodium (Mastocytosis) (Cromolyn Sodium), 10 ML PO QID Fexofenadine Hcl (Shanell Allergy), 180 MG PO BID Fluoxetine (Prozac), 60 MG PO DAILY Fluticasone Furoate-Vilanterol (Breo Ellipta 200-25 Mcg/INH), 1 PUFF INH DAILY Gabapentin (Gabapentin), 600 MG PO TID Midodrine Hcl (Midodrine Hcl), 10 MG PO QID Montelukast Sod (Montelukast Sodium), 10 MG PO BID Pantoprazole (Protonix), 40 MG PO DAILY Prazosin HCl (Prazosin HCl), 1 MG PO HS Ranitidine Hcl (Zantac), 300 MG PO BID Topiramate (Topamax), 200 MG PO BID Scheduled PRN Albuterol Hfa (Ventolin Hfa), 2 PUFFS INH Q4-6HRS PRN for Wheezing Albuterol Sulf (Proventil 0.083% 2.5MG/3ML), 3 ML NEB QID PRN for SOB/Wheezing Albuterol Sulfate (Albuterol Sulfate Er), 4 MG PO BID PRN for SOB/Wheezing Diclofenac (Voltaren), 50 MG PO TID PRN for Pain Diphenhydramine Hcl (Benadryl Allergy), 25-75 MG PO UD PRN for ALLERGIC REACTION Epinephrine (Epipen), 0.3 MG IM UD PRN for ALLERGIC REACTION Loratadine (Claritin), 10 MG PO DAILY PRN for Allergy Symptoms Lorazepam (Lorazepam), 1 MG PO Q6H PRN for Anxiety Prochlorperazine Maleate (Compazine), 10 MG PO QID PRN for Nausea Sumatriptan Succinate (Imitrex), 100 MG PO UD PRN for Headache Sumatriptan Succinate (Imitrex Statdose), 6 MG IM UD PRN for Headache Trazodone Hcl (Trazodone), 50 MG PO HS PRN for Sleep Allergies Coded Allergies: Cetirizine (Verified Allergy, Severe, anapyhylaxis, 11/05/16) Hydroxyzine (Verified Allergy, Severe, anaphylaxis, 11/05/16) Quercetin (Verified Allergy, Severe, ANAPHYLAXIS, 11/05/16) Ziprasidone (Verified Allergy, Severe, Anaphylaxis, 11/05/16) Reported by PT Aripiprazole (Verified Allergy, Intermediate, ., 11/05/16) BEE STING (Verified Allergy, Intermediate, anaphylaxis, 11/05/16) Lurasidone (Verified Allergy, Intermediate, ., 11/05/16) Cefaclor (Verified Allergy, Mild, ANAPHYLAXIS, 11/05/16) CI Pigment Blue 63 (Verified Allergy, Unknown, ANAPHYLAXIS, 11/05/16) Clonazepam (Verified Allergy, Unknown, anaphylaxis, 11/05/16) Dexlansoprazole (Verified Allergy, Unknown, ANAPHYLAXIS, 11/05/16) Doxycycline (Verified Allergy, Unknown, UNKNOWN, 11/05/16) Iodinated Diagnostic Agents (Verified Allergy, Unknown, ANAPHYLAXIS, ) must have pretreats, Red Dye (Verified Allergy, Unknown, ANAPHYLAXIS, 11/05/16) Uncoded Nonscreenable Allergen (Verified Allergy, Unknown, ETHLYENEDIAMINE DIHYDROCHLORIDE- A BRICK SETTER GENERIC DRUGS, 11/05/16) ETHLYENEDIAMINE DIHYDROCHLORIDE- A BRICK SETTER GENERIC DRUGS: CAUSES ANAPHYLAXIS Physical Exam Vital Signs Date Time Temp Pulse Resp B/P Pulse Ox O2 Delivery O2 Flow Rate FiO2 12/22/16 18:02 88 18 129/56 97 Room Air 12/22/16 17:15 93 18 136/85 97 Room Air 12/22/16 16:22 36.8 95 18 141/65 98 Room Air 12/22/16 16:22 103 Physical Exam GENERAL: Patient is anxious appearing and in minimal distress, looking away during much of examination, periodic clearly voluntary shaking of arms and hands. HEENT: No acute trauma, normocephalic atraumatic, mucous membranes moist, no nasal congestion, no scleral icterus. NECK: No stridor, no adenopathy, no meningismus, trachea is midline. LUNGS: No dyspnea. Clear to auscultation and equal bilaterally. No wheeze, no rhonchi. HEART: Regular rate and rhythm. No murmurs, rubs, gallops appreciated. ABDOMEN: Soft, nontender, bowel sounds positive, no masses appreciated, no peritonitis. BACK: No midline tenderness, no CVA tenderness EXTREMITIES: Normal motion all extremities, no cyanosis, no edema. NEUROLOGIC: Alert and oriented, no acute motor or sensory deficits, no focal weakness, cranial nerves grossly intact. SKIN: No rash, no jaundice, no diaphoresis. Medical Decision & Procedures Laboratory Results 12/22/16 16:56 Red Blood Count 5.33, Mean Corpuscular Volume 83.9, Mean Corpuscular Hemoglobin 28.9, Mean Corpuscular Hemoglobin Concent 34.5, Mean Platelet Volume 9.2, Neutrophils (%) (Auto) 76.4, Lymphocytes (%) (Auto) 17.7, Monocytes (%) (Auto) 5.2, Eosinophils (%) (Auto) 0.3, Basophils (%) (Auto) 0.2, Neutrophils # (Auto) 11.73, Lymphocytes # (Auto) 2.71, Monocytes # (Auto) 0.79, Eosinophils # (Auto) 0.04, Basophils # (Auto) 0.03 12/22/16 16:56 Test 12/22/16 16:56 White Blood Count 15.33 K/uL (4.8-10.8) Red Blood Count 5.33 M/uL (4.2-5.4) Hemoglobin 15.4 g/dL (12.0-16.0) Hematocrit 44.7 % (37-47) Mean Corpuscular Volume 83.9 fL (80-100) Mean Corpuscular Hemoglobin 28.9 pg (25-34) Mean Corpuscular Hemoglobin Concent 34.5 g/dl (32-36) Platelet Count 277 K/uL (130-400) Mean Platelet Volume 9.2 fL (7.4-10.4) Neutrophils (%) (Auto) 76.4 % Lymphocytes (%) (Auto) 17.7 % Monocytes (%) (Auto) 5.2 % Eosinophils (%) (Auto) 0.3 % Basophils (%) (Auto) 0.2 % Neutrophils # (Auto) 11.73 K/uL (1.4-6.5) Lymphocytes # (Auto) 2.71 K/uL (1.2-3.4) Monocytes # (Auto) 0.79 K/uL (0.11-0.59) Eosinophils # (Auto) 0.04 K/uL (0-0.5) Basophils # (Auto) 0.03 K/uL (0-0.2) RDW Standard Deviation 44.1 fL (36.4-46.3) RDW Coefficient of Variation 14.3 % (11.5-14.5) Immature Granulocyte % (Auto) 0.2 % Immature Granulocyte # (Auto) 0.03 K/uL (0.00-0.02) Red Blood Cell Morphology Unremarkable Anion Gap 9.0 mmol/L (3-11) Est Creatinine Clear Calc Drug Dose 77.6 ml/min Estimated GFR () 72.7 Estimated GFR (Non- 62.8 BUN/Creatinine Ratio 10.7 (10-20) Calcium Level 9.3 mg/dl (8.5-10.1) Total Creatine Kinase 21 U/L (26-192) Troponin I < 0.015 ng/ml (0-0.045) Laboratory results as reviewed by me. Medications Administered Medications (Trade) Dose Ordered Sig/Geeta Route Start Time Stop Time Status Last Admin Dose Admin Lorazepam 1 mg 1 mg NOW STAT IV 12/22/16 16:31 12/22/16 16:33 DC 12/22/16 16:57 1 MG Sodium Chloride (Nss 1000ml) 1,000 ml @ 999 mls/hr Q1H1M STAT IV 12/22/16 16:31 12/22/16 17:31 DC 12/22/16 16:57 999 MLS/HR Methylprednisolone Sodium Succinate (Solu-Medrol IV) 80 mg NOW STAT IV 12/22/16 16:43 12/22/16 16:45 DC 12/22/16 17:02 80 MG Diphenhydramine HCl 50 mg 50 mg NOW STAT IV 12/22/16 16:43 12/22/16 16:45 DC 12/22/16 17:02 50 MG Sodium Chloride (Nss 1000ml) 1,000 ml @ 999 mls/hr Q1H1M STAT IV 12/22/16 16:43 12/22/16 17:43 DC 12/22/16 16:57 999 MLS/HR Prochlorperazine Edisylate (Compazine Inj) 10 mg NOW STAT IV 12/22/16 17:22 12/22/16 17:24 DC 12/22/16 17:28 10 MG Ketorolac Tromethamine (Toradol Inj) 30 mg NOW STAT IV 12/22/16 17:22 12/22/16 17:24 DC 12/22/16 17:29 30 MG ECG Indication: syncope Rate (beats per minute): 93 Rhythm: normal sinus Findings: no acute ischemic change, no ectopy ED Course 1611: The patient was evaluated in room C3. A complete history and physical exam was performed. 1631: NSS 1000 ml @ 999 mls/hr IV, Ativan 2 mg IV 1643: NSS 1000 ml @ 999 mls/hr IV, Benadryl 50 mg IV, Solu-Medrol 80 mg IV 1719: I reevaluated the patient. She notes that her migraine continues and requested Toradol and Compazine. She notes symptoms started getting worse recently due to running out of her Mobic. 1722: Toradol 30 mg IV, Compazine 10 mg IV 1751: Pt is asleep and resting comfortably. 1815: I reassessed the patient at this time. I discussed the results and treatment plan with the patient. I offered a mental health evaluation and the patient decline. The patient reaffirms that she is not suicidal or homicidal. She does not feel that she is at risk to herself at home. She has outpatient contacts for psychiatry with several different providers available. The patient will be discharged home. Medical Decision Differential: Sepsis, Infectious (UTI/Pneumonia/Meningitis/etc), Metabolic/ Electrolyte Abnormality, Cardiac, Hepatic, Endocrine, Toxicologic, Neurologic, amongst other pathologies entertained. 26 yr old female arrives with complaint of seizure like activity. Stating she doesn't remember what happened but also stating she went to the park. She has long, complex PMH with many previous evaluations for migraines, seizure like activity and reported anaphylaxis. She regularly takes epi-pen infections for reports mast cell attacks. Admits she did not start her steroid prescribed when here 2 days ago for mast cell attack. No fevers, rash, tachycardia, short of breath. She notes chronic unending migraine. Resolved with Toradol, Benadryl, compazine, fluids. She was given Ativan for "shaking" episode which was not seizure like in nature. She was given Solu-medrol at patient request stating she needs it for mast cell issue and fact she didn't fill her Rx. She states she feels safe at home and is not a risk to herself. notes he will be with her. She is not interested in being seen by psychiatry here today and will follow up as outpatient. She denies suicidal ideation. She is not acutely psychotic here. She does not have meningitis, encephalitis. She is not septic nor toxic. I am concerned by her frequent use of Epi Pens, Benadryl , and steroids though she states it is fine per her doctor who I have advised she continue following with. Impression Primary Impression: Seizure-like activity Additional Impressions: Migraine Weakness Fatigue Dehydration Scribe Attestation The scribe's documentation has been prepared under my direction and personally reviewed by me in its entirety. I confirm that the note above accurately reflects all work, treatment, procedures, and medical decision making performed by me. Departure Information Dispostion Home / Self-Care Referrals Hoa Moeller D.O. (PCP) Forms HOME CARE DOCUMENTATION FORM, IMPORTANT VISIT INFORMATION Patient Instructions [facility] Additional Instructions Please follow up with your primary care provider and neurologist in the next 1 to 2 days. Return immediately if change in your typical symptoms, fevers, or other concerns. We are always here to help. Please fill and use your prescriptions as previously prescribed. Problem Qualifiers Additional Impressions: Migraine Migraine type: unspecified Status migrainosus presence: without status migrainosus Intractability: not intractable Qualified Codes: G43.909 - Migraine, unspecified, not intractable, without status migrainosus Fatigue Fatigue type: unspecified Qualified Codes: R53.83 - Other fatigue
[2016-12-22 18:02] VITALS: BP 129/56; PULSE 88; O2SAT 97
[2017-03-27] MEDS ORDERED: TRAZ50TA35 PO (14:13)
[2017-05-09] MEDS ORDERED: BUPRTAB PO (02:07)
[2017-05-09] MEDS ORDERED: PROC1TAB5 PO (10:51)
[2017-05-09] MEDS ORDERED: PRZ1 PO (10:52)
[2017-05-09] MEDS ORDERED: FLUT1INH7 INH (13:03)
[2017-05-09] MEDS ORDERED: CLR10 PO (13:07)
[2017-05-09] MEDS ORDERED: DIPH25CA65 PO (13:13)
[2017-05-09] MEDS ORDERED: SUMA100T16 PO (14:12)
== END 2016-12-22 18:29 | disposition home or self-care (01) ==
LOC: EDBD 16:06 → C.EDC 16:08
DX: R56.9 Unspecified convulsions (principal); G43.909 Migraine, unspecified, not intractable, without status migrainosus; R53.1 Weakness; R53.83 Other fatigue; E86.0 Dehydration; F41.9 Anxiety disorder, unspecified; J45.909 Unspecified asthma, uncomplicated; F31.9 Bipolar disorder, unspecified; K80.20 Calculus of gallbladder without cholecystitis without obstruction; N83.209 Unspecified ovarian cyst, unspecified side; Z91.81 History of falling; Z98.890 Other specified postprocedural states; Z79.899 Other long term (current) drug therapy; Z88.8 Allergy status to other drugs, medicaments and biological substances; Z91.030 Bee allergy status; Z91.041 Radiographic dye allergy status; Z91.09 Other allergy status, other than to drugs and biological substances; Z80.9 Family history of malignant neoplasm, unspecified; Z83.3 Family history of diabetes mellitus; Z82.49 Family history of ischemic heart disease and other diseases of the circulatory system; Z84.1 Family history of disorders of kidney and ureter

== ENCOUNTER 2016-12-26 20:41 | Emergency (ER) | payer OTHER ==
[~2016-12-26] VITALS: Ht 165.1 cm; Wt 84.0 kg
[2016-12-26 20:51] VITALS: TEMP 37.6; Ht 165.1 cm; Wt 84.0 kg
[2016-12-26] MEDS ORDERED: METHYLPREDNISOLONE 125 MG VIAL IV STA (21:47)
[2016-12-26] MEDS ORDERED: DiphenhydrAMINE HCL 50 MG/ML VIAL IV STA (21:47)
[2016-12-26] MEDS ORDERED: PROCHLORPERAZINE 5 MG/ML 2 ML VIAL IV STA (21:47)
[2016-12-26] MEDS ORDERED: SODIUM CHLORIDE 0.9% 1000ML 1,000 ML IV ONE (22:00)
[2016-12-26 22:03] VITALS: O2SAT 98
[2016-12-26 22:55] VITALS: BP 121/44; PULSE 98; O2SAT 98
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
[2017-03-27] MEDS ORDERED: TRAZ50TA35 PO (14:13)
[2017-05-09] MEDS ORDERED: BUPRTAB PO (02:07)
[2017-05-09] MEDS ORDERED: PROC1TAB5 PO (10:51)
[2017-05-09] MEDS ORDERED: PRZ1 PO (10:52)
[2017-05-09] MEDS ORDERED: FLUT1INH7 INH (13:03)
[2017-05-09] MEDS ORDERED: CLR10 PO (13:07)
[2017-05-09] MEDS ORDERED: DIPH25CA65 PO (13:13)
[2017-05-09] MEDS ORDERED: SUMA100T16 PO (14:12)
== END 2016-12-26 22:55 | disposition home or self-care (01) ==
LOC: EDBD 20:41 → C.EDA 20:42
DX: T78.40XA Allergy, unspecified, initial encounter (principal); X58.XXXA Exposure to other specified factors, initial encounter; F41.9 Anxiety disorder, unspecified; F31.9 Bipolar disorder, unspecified; J45.909 Unspecified asthma, uncomplicated; K80.50 Calculus of bile duct without cholangitis or cholecystitis without obstruction; N83.209 Unspecified ovarian cyst, unspecified side; Z87.828 Personal history of other (healed) physical injury and trauma; Z91.81 History of falling

== ENCOUNTER 2016-12-31 01:21 | Emergency (ER) | payer OTHER ==
[~2016-12-31] VITALS: Ht 165.1 cm; Wt 85.0 kg
[2016-12-31 01:27] VITALS: TEMP 37.3; Ht 165.1 cm; Wt 85.0 kg
[2016-12-31 02:06] LABS: URINE APPEARANCE CLEAR (CLEAR); URINE BILIRUBIN NEG (NEG); URINE COLOR YELLOW; URINE NITRITE NEG (NEG); URINE PH 7.5 (4.5-7.5); URINE SPECIFIC GRAVITY 1.007 (1.000-1.030); UROBILINOGEN NEG (NEG)
[2016-12-31 02:09] LABS: MANUAL MICROSCOPIC REQUIRED? NO; REVIEW REQ? NO
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
[2016-12-31 02:28] LABS: BENZODIAZEPINE, URINE NEG (NEG); COCAINE,URINE NEG (NEG); PHENCYCLIDINE, URINE NEG (NEG)
[2016-12-31 02:41] VITALS: BP 139/52; PULSE 69; O2SAT 98
--- NOTE | 2016-12-31 08:26 | DIAGNOSTIC IMAGING REPORT ---
RIGHT FOOT 3 VIEWS CLINICAL HISTORY: Right foot injury. FINDINGS: 3 views of the right foot are obtained. No prior studies are available for comparison at the time of dictation. The skeletal structures are well mineralized. No fracture is seen. The joint spaces of the foot are well-maintained. The overlying soft tissues are within normal limits. IMPRESSION: Unremarkable radiographic assessment of the right foot. Electronically signed by: Damien Henson M.D. 12/31/2016 8:25 AM Dictated Date/Time: 12/31/2016 8:24 AM
[2017-03-27] MEDS ORDERED: TRAZ50TA35 PO (14:13)
[2017-05-09] MEDS ORDERED: BUPRTAB PO (02:07)
[2017-05-09] MEDS ORDERED: PROC1TAB5 PO (10:51)
[2017-05-09] MEDS ORDERED: PRZ1 PO (10:52)
[2017-05-09] MEDS ORDERED: FLUT1INH7 INH (13:03)
[2017-05-09] MEDS ORDERED: CLR10 PO (13:07)
[2017-05-09] MEDS ORDERED: DIPH25CA65 PO (13:13)
[2017-05-09] MEDS ORDERED: SUMA100T16 PO (14:12)
== END 2016-12-31 02:41 | disposition home or self-care (01) ==
LOC: C.EDB 01:22 → C.EDA 02:41
DX: F41.9 Anxiety disorder, unspecified (principal); M79.671 Pain in right foot; J45.909 Unspecified asthma, uncomplicated; F31.9 Bipolar disorder, unspecified; N83.209 Unspecified ovarian cyst, unspecified side; Z79.899 Other long term (current) drug therapy; Z88.8 Allergy status to other drugs, medicaments and biological substances; Z91.030 Bee allergy status; Z91.041 Radiographic dye allergy status; Z80.9 Family history of malignant neoplasm, unspecified; Z83.3 Family history of diabetes mellitus; Z82.49 Family history of ischemic heart disease and other diseases of the circulatory system; Z84.1 Family history of disorders of kidney and ureter

== ENCOUNTER 2017-01-03 14:33 | Emergency (ER) | payer OTHER ==
[~2017-01-03] VITALS: Ht 165.1 cm; Wt 85.5 kg
[2017-01-03 14:42] VITALS: TEMP 36.6; Ht 165.1 cm; Wt 85.5 kg
[2017-01-03] MEDS ORDERED: DiphenhydrAMINE HCL 50 MG/ML VIAL IV STA (15:14)
[2017-01-03] MEDS ORDERED: DiphenhydrAMINE HCL 50 MG/ML VIAL ONE (15:15)
[2017-01-03] MEDS ORDERED: LORAZEPAM 2 MG/ML 1 ML VIAL IV STA ×2 (15:18→16:27)
[2017-01-03] MEDS ORDERED: LORAZEPAM 2 MG/ML 1 ML VIAL ONE (15:19)
[2017-01-03] MEDS ORDERED: ONDANSETRON INJ 2 MG/ML 2 ML VIAL IV STA (15:20)
[2017-01-03 16:06] LABS: HEMATOCRIT 41.2 % (37-47); MEAN CELL VOLUME 84.4 fL (80-100); MEAN CORPUSCULAR HEMOGLOBIN 29.1 pg (25-34); MEAN CORPUSCULAR HGB CONC 34.5 g/dl (32-36); MEAN PLATELET VOLUME 9.5 fL (7.4-10.4); PLATELET COUNT 252 K/uL (130-400); RED BLOOD COUNT 4.88 M/uL (4.2-5.4); WHITE BLOOD COUNT 14.71 K/uL (4.8-10.8)
[2017-01-03 16:14] LABS: ALT/SGPT 78 U/L (12-78); AST/SGOT 41 U/L (15-37); BLOOD UREA NITROGEN 8 mg/dl (7-18); BUN/CREATININE RATIO 8.1 (10-20); CARBON DIOXIDE 22 mmol/L (21-32); CHLORIDE 110 mmol/L (98-107); GLUCOSE 83 mg/dl (70-99); POTASSIUM 3.3 mmol/L (3.5-5.1); SODIUM 142 mmol/L (136-145)
[2017-01-03 16:25] LABS: ACETAMINOPHEN < 2 ug/ml (10-30)
[2017-01-03 16:25] LABS: ALKALINE PHOSPHATASE 104 U/L (45-117); THYROID STIMULATING HORMONE 0.868 uIu/ml (0.300-4.500)
[2017-01-03 17:24] LABS: BASO % 0.2 %; BASO ABS # 0.03 K/uL (0-0.2); COMPLETE YES; EOS % 0.3 %; IG% 0.3 %; LYMPH % 17.3 %; LYMPH ABS # 2.55 K/uL (1.2-3.4); MONO % 7.1 %; NEUT % 74.8 %
--- NOTE | 2017-01-03 17:32 | EMERGENCY ROOM VISIT NOTE ---
History First contact with patient: 16:52 Chief Complaint: MENTAL HEALTH EVALUATION Stated Complaint: MENTAL HEALTH-THOUGHTS OF HURTING HERSELF/ALLERGIC History of Present Illness The patient is a 26 year old female who presents to the Emergency Room with complaints of suicidal ideation. Patient was seen earlier this afternoon by her psychiatrist and there were concerns about suicidal ideation stated by the patient so she was transported here. The patient states that she has had suicidal thoughts including cutting herself. She states that she has cut herself in the past and if she were to leave here would most likely cut herself. She also states that she has tried to overdose on pills before. 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 She states she has no intention to hurt anyone else. Review of Systems See HPI for pertinent positives and negatives. A total of ten systems were reviewed and were otherwise negative. Past Medical/Surgical History Medical Problems: (1) Allergic reaction (2) anaphylaxis/, seizure (3) Anxiety (4) Asthma (5) Asthma, Unspecified (6) Bipolar I disorder (7) Contusion of multiple sites (8) Fall (9) Gallstones (10) Headache (11) Mast cell disorder (12) Ovarian cyst (13) Seizure-like activity Surgical Problems: (1) History of colonoscopy Family History Cancer Diabetes mellitus Endometriosis MOTHER Heart disease Hypertrophic cardiomyopathy FATHER aunt Kidney disease Kidney stones Lung disease PCOS SISTER Social History Smoking Status: Former Smoker Alcohol Use: none Drug Use: none Marital Status: Housing Status: lives with family Occupation Status: unemployed Current/Historical Medications Scheduled Psanmomqjh-Pyuekraivxdef-Ifygs (Fioricet), 2 TAB PO DIRECTED Cromolyn Sodium (Mastocytosis) (Cromolyn Sodium), 10 ML PO QID Fexofenadine Hcl (Shanell Allergy), 180 MG PO BID Fluoxetine (Prozac), 60 MG PO DAILY Fluticasone Furoate-Vilanterol (Breo Ellipta 200-25 Mcg/INH), 1 PUFF INH DAILY Gabapentin (Gabapentin), 600 MG PO TID Meloxicam (Mobic), 15 MG PO DAILY Midodrine Hcl (Midodrine Hcl), 10 MG PO QID Montelukast Sod (Montelukast Sodium), 10 MG PO BID Pantoprazole (Protonix), 40 MG PO DAILY Prazosin HCl (Prazosin HCl), 1 MG PO HS Ranitidine Hcl (Zantac), 300 MG PO BID Topiramate (Topamax), 200 MG PO BID Scheduled PRN Albuterol Hfa (Ventolin Hfa), 2 PUFFS INH Q4-6HRS PRN for Wheezing Albuterol Sulf (Proventil 0.083% 2.5MG/3ML), 3 ML NEB QID PRN for SOB/Wheezing Albuterol Sulfate (Albuterol Sulfate Er), 4 MG PO BID PRN for SOB/Wheezing Diclofenac (Voltaren), 50 MG PO TID PRN for Pain Diphenhydramine Hcl (Benadryl Allergy), 25-75 MG PO UD PRN for ALLERGIC REACTION Epinephrine (Epipen), 0.3 MG IM UD PRN for ALLERGIC REACTION Loratadine (Claritin), 10 MG PO DAILY PRN for Allergy Symptoms Lorazepam (Lorazepam), 1 MG PO Q6H PRN for Anxiety Prochlorperazine Maleate (Compazine), 10 MG PO QID PRN for Nausea Sumatriptan Succinate (Imitrex), 100 MG PO UD PRN for Headache Sumatriptan Succinate (Imitrex Statdose), 6 MG IM UD PRN for Headache Trazodone Hcl (Trazodone), 50 MG PO HS PRN for Sleep Allergies Coded Allergies: Cetirizine (Verified Allergy, Severe, anapyhylaxis, 01/03/17) Hydroxyzine (Verified Allergy, Severe, anaphylaxis, 01/03/17) Quercetin (Verified Allergy, Severe, ANAPHYLAXIS, 01/03/17) Ziprasidone (Verified Allergy, Severe, Anaphylaxis, 01/03/17) Reported by PT Aripiprazole (Verified Allergy, Intermediate, ., 01/03/17) BEE STING (Verified Allergy, Intermediate, anaphylaxis, 01/03/17) Lurasidone (Verified Allergy, Intermediate, ., 01/03/17) Cefaclor (Verified Allergy, Mild, ANAPHYLAXIS, 01/03/17) CI Pigment Blue 63 (Verified Allergy, Unknown, ANAPHYLAXIS, 01/03/17) Clonazepam (Verified Allergy, Unknown, anaphylaxis, 01/03/17) Dexlansoprazole (Verified Allergy, Unknown, ANAPHYLAXIS, 01/03/17) Doxycycline (Verified Allergy, Unknown, UNKNOWN, 01/03/17) Iodinated Diagnostic Agents (Verified Allergy, Unknown, ANAPHYLAXIS, ) must have pretreats, Red Dye (Verified Allergy, Unknown, ANAPHYLAXIS, 01/03/17) Uncoded Nonscreenable Allergen (Verified Allergy, Unknown, ETHLYENEDIAMINE DIHYDROCHLORIDE- A TRUCK MECHANIC GENERIC DRUGS, 01/03/17) ETHLYENEDIAMINE DIHYDROCHLORIDE- A TRUCK MECHANIC GENERIC DRUGS: CAUSES ANAPHYLAXIS Physical Exam Vital Signs Date Time Temp Pulse Resp B/P Pulse Ox O2 Delivery O2 Flow Rate FiO2 01/03/17 15:27 84 01/03/17 14:42 36.6 92 20 126/67 97 Room Air Physical Exam GENERAL: Awake, alert, well-appearing, in no distress HENT: Normocephalic, atraumatic. Oropharynx unremarkable. EYES: Normal conjunctiva. Sclera non-icteric. NECK: Supple. No nuchal rigidity. RESPIRATORY: Clear to auscultation. CARDIAC: Regular rate, normal rhythm. Extremities warm and well perfused. Pulses equal. ABDOMEN: Soft, non-distended. No tenderness to palpation. No rebound or guarding. No masses. RECTAL: Deferred. MUSCULOSKELETAL: Chest examination reveals no tenderness. The back is symmetrical on inspection without obvious abnormality. No joint edema. LOWER EXTREMITIES: Calves are equal size bilaterally and non-tender. No edema. No discoloration. NEURO: Normal sensorium. No sensory or motor deficits noted. SKIN: No rash or jaundice noted. Medical Decision & Procedures Laboratory Results 01/03/17 15:06 Red Blood Count 4.88, Mean Corpuscular Volume 84.4, Mean Corpuscular Hemoglobin 29.1, Mean Corpuscular Hemoglobin Concent 34.5, Mean Platelet Volume 9.5 01/03/17 15:50 Test 01/03/17 15:06 01/03/17 15:50 01/03/17 15:51 White Blood Count 14.71 K/uL (4.8-10.8) Red Blood Count 4.88 M/uL (4.2-5.4) Hemoglobin 14.2 g/dL (12.0-16.0) Hematocrit 41.2 % (37-47) Mean Corpuscular Volume 84.4 fL (80-100) Mean Corpuscular Hemoglobin 29.1 pg (25-34) Mean Corpuscular Hemoglobin Concent 34.5 g/dl (32-36) Platelet Count 252 K/uL (130-400) Mean Platelet Volume 9.5 fL (7.4-10.4) RDW Standard Deviation 44.8 fL (36.4-46.3) RDW Coefficient of Variation 14.5 % (11.5-14.5) Salicylates Level < 1.7 mg/dl (2.8-20) Acetaminophen Level < 2 ug/ml (10-30) Anion Gap 10.0 mmol/L (3-11) Est Creatinine Clear Calc Drug Dose 92.9 ml/min Estimated GFR () 90.7 Estimated GFR (Non- 78.2 BUN/Creatinine Ratio 8.1 (10-20) Calcium Level 9.0 mg/dl (8.5-10.1) Total Bilirubin 0.2 mg/dl (0.2-1) Direct Bilirubin < 0.1 mg/dl (0-0.2) Aspartate Amino Transf (AST/SGOT) 41 U/L (15-37) Alanine Aminotransferase (ALT/SGPT) 78 U/L (12-78) Alkaline Phosphatase 104 U/L (45-117) Total Protein 6.9 gm/dl (6.4-8.2) Albumin 4.0 gm/dl (3.4-5.0) Thyroid Stimulating Hormone (TSH) 0.868 uIu/ml (0.300-4.500) Ethyl Alcohol mg/dL < 3.0 mg/dl (0-3) Bedside Glucose 81 mg/dl (70-90) Medications Administered Medications (Trade) Dose Ordered Sig/Geeta Route Start Time Stop Time Status Last Admin Dose Admin Diphenhydramine HCl (Benadryl Inj) 25 mg NOW STAT IV 01/03/17 15:14 01/03/17 15:15 DC 01/03/17 15:27 25 MG Lorazepam (Ativan Inj) 1 mg NOW STAT IV 01/03/17 15:18 01/03/17 15:19 DC 01/03/17 15:28 1 MG Ondansetron HCl (Zofran Inj) 4 mg NOW STAT IV 01/03/17 15:20 01/03/17 15:22 DC 01/03/17 15:27 4 MG Lorazepam (Ativan Inj) 1 mg NOW STAT IV 01/03/17 16:27 01/03/17 16:28 DC 01/03/17 16:49 1 MG Medical Decision When called to the room initially the patient was having a "Mastocytosis" reaction that involved her holding for breath and gasping for air, much in line with her previous admissions. 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 She was given 25mg IV benadryl followed by 1mg IV Ativan and she stopped having the events. I subsequently had a lengthy discussion with Magda and her about her diagnosis and how many of the symptoms she is displaying are often not termite control representative of her diagnosis. Initially the patient stated "when you say I'm faking I want to slap you in the face and hit you", I was able to have an honest discussion with the patient about her symptoms and why it was so dangerous for her to take multiple doses of Epinephrine at a time. We discussed how many of her symptoms were brought on by her anxiety and she agreed. When leaving the room the patient asked if she could have another breathing treatment, and I explained how this was not necessary based on her physical exam and findings. The patient became very upset and started shouting at that point. Departure Information Referrals Hoa Moeller D.O. (PCP) Patient Instructions My [facility]
[2017-01-03 18:04] LABS: URINE APPEARANCE CLEAR (CLEAR); URINE BILIRUBIN NEG (NEG); URINE COLOR YELLOW; URINE NITRITE NEG (NEG); URINE PH 6.5 (4.5-7.5); URINE SPECIFIC GRAVITY 1.008 (1.000-1.030); UROBILINOGEN NEG (NEG)
[2017-01-03 18:17] LABS: MANUAL MICROSCOPIC REQUIRED? NO; REVIEW REQ? NO
[2017-01-03 18:33] LABS: BENZODIAZEPINE, URINE NEG (NEG); COCAINE,URINE NEG (NEG); PHENCYCLIDINE, URINE NEG (NEG)
--- NOTE | 2017-01-03 21:24 | EMERGENCY ROOM VISIT NOTE ---
History Report prepared by Vee: Tia Armendariz Under the Supervision of: Dr. Mario Ruff M.D. First contact with patient: 15:10 Chief Complaint: MENTAL HEALTH EVALUATION Stated Complaint: MENTAL HEALTH-THOUGHTS OF HURTING HERSELF/ALLERGIC History of Present Illness The patient is a 26 year old female who presents to the Emergency Room with complaints of persistent thoughts of self-harm that began prior to arrival. The patient states that she was at her therapist's today for an appointment noting that she became upset. She states that she made statements of self-harm , noting a plan to self-mutilate by cutting herself. The patient states that she has a history of self-mutilation and a previous suicide attempt with an overdose. The patient notes that her therapist has become concerned for the patient's safety and told her to come to the emergency department for further evaluation and treatment. She additionally has stated that if she leaves the hospital she will go home to self-mutilate herself. Pt denies LOC, headache, fevers, chills, diaphoresis, visual changes, neck pain, chest pain, breathing difficulties, nausea, vomiting, abdominal pain, back pain, melena, hematochezia , urinary symptoms, numbness, weakness, lymphadenopathy, rash, or other complaints. Source of History: patient Onset: prior to arrival Position: other (global) Quality: other (thoughts of self harm) Timing: other (persistent) Note: Associated Symptoms: history of self-mutilation and overdose Review of Systems See HPI for pertinent positives and negatives. A total of ten systems were reviewed and were otherwise negative. Past Medical & Surgical Medical Problems: (1) Allergic reaction (2) anaphylaxis/, seizure (3) Anxiety (4) Asthma (5) Asthma, Unspecified (6) Bipolar I disorder (7) Contusion of multiple sites (8) Fall (9) Gallstones (10) Headache (11) Mast cell disorder (12) Ovarian cyst (13) Seizure-like activity Surgical Problems: (1) History of colonoscopy Family History Cancer Diabetes mellitus Endometriosis MOTHER Heart disease Hypertrophic cardiomyopathy FATHER aunt Kidney disease Kidney stones Lung disease PCOS SISTER Social History Smoking Status: Former Smoker Alcohol Use: none Drug Use: none Marital Status: Housing Status: lives with family Occupation Status: unemployed Current/Historical Medications Scheduled Jdeaxizkca-Gxlgahnivdybj-Hriuf (Fioricet), 2 TAB PO DIRECTED Cromolyn Sodium (Mastocytosis) (Cromolyn Sodium), 10 ML PO QID Fexofenadine Hcl (Shanell Allergy), 180 MG PO BID Fluoxetine (Prozac), 60 MG PO DAILY Fluticasone Furoate-Vilanterol (Breo Ellipta 200-25 Mcg/INH), 1 PUFF INH DAILY Gabapentin (Gabapentin), 600 MG PO TID Meloxicam (Mobic), 15 MG PO DAILY Midodrine Hcl (Midodrine Hcl), 10 MG PO QID Montelukast Sod (Montelukast Sodium), 10 MG PO BID Pantoprazole (Protonix), 40 MG PO DAILY Prazosin HCl (Prazosin HCl), 1 MG PO HS Ranitidine Hcl (Zantac), 300 MG PO BID Topiramate (Topamax), 200 MG PO BID Scheduled PRN Albuterol Hfa (Ventolin Hfa), 2 PUFFS INH Q4-6HRS PRN for Wheezing Albuterol Sulf (Proventil 0.083% 2.5MG/3ML), 3 ML NEB QID PRN for SOB/Wheezing Albuterol Sulfate (Albuterol Sulfate Er), 4 MG PO BID PRN for SOB/Wheezing Diclofenac (Voltaren), 50 MG PO TID PRN for Pain Diphenhydramine Hcl (Benadryl Allergy), 25-75 MG PO UD PRN for ALLERGIC REACTION Epinephrine (Epipen), 0.3 MG IM UD PRN for ALLERGIC REACTION Loratadine (Claritin), 10 MG PO DAILY PRN for Allergy Symptoms Lorazepam (Lorazepam), 1 MG PO Q6H PRN for Anxiety Prochlorperazine Maleate (Compazine), 10 MG PO QID PRN for Nausea Sumatriptan Succinate (Imitrex), 100 MG PO UD PRN for Headache Sumatriptan Succinate (Imitrex Statdose), 6 MG IM UD PRN for Headache Trazodone Hcl (Trazodone), 50 MG PO HS PRN for Sleep Allergies Coded Allergies: Cetirizine (Verified Allergy, Severe, anapyhylaxis, 01/03/17) Hydroxyzine (Verified Allergy, Severe, anaphylaxis, 01/03/17) Quercetin (Verified Allergy, Severe, ANAPHYLAXIS, 01/03/17) Ziprasidone (Verified Allergy, Severe, Anaphylaxis, 01/03/17) Reported by PT Aripiprazole (Verified Allergy, Intermediate, ., 01/03/17) BEE STING (Verified Allergy, Intermediate, anaphylaxis, 01/03/17) Lurasidone (Verified Allergy, Intermediate, ., 01/03/17) Cefaclor (Verified Allergy, Mild, ANAPHYLAXIS, 01/03/17) CI Pigment Blue 63 (Verified Allergy, Unknown, ANAPHYLAXIS, 01/03/17) Clonazepam (Verified Allergy, Unknown, anaphylaxis, 01/03/17) Dexlansoprazole (Verified Allergy, Unknown, ANAPHYLAXIS, 01/03/17) Doxycycline (Verified Allergy, Unknown, UNKNOWN, 01/03/17) Iodinated Diagnostic Agents (Verified Allergy, Unknown, ANAPHYLAXIS, ) must have pretreats, Red Dye (Verified Allergy, Unknown, ANAPHYLAXIS, 01/03/17) Uncoded Nonscreenable Allergen (Verified Allergy, Unknown, ETHLYENEDIAMINE DIHYDROCHLORIDE- A WATER TEAM LEADER GENERIC DRUGS, 01/03/17) ETHLYENEDIAMINE DIHYDROCHLORIDE- A WATER TEAM LEADER GENERIC DRUGS: CAUSES ANAPHYLAXIS Physical Exam Vital Signs Date Time Temp Pulse Resp B/P Pulse Ox O2 Delivery O2 Flow Rate FiO2 01/03/17 18:25 75 16 129/48 100 Room Air 01/03/17 15:27 84 01/03/17 14:42 36.6 92 20 126/67 97 Room Air Physical Exam GENERAL: Awake, alert, well appearing, no distress HENT: Normocephalic, atraumatic. TM's normal. Oropharynx unremarkable. EYES: PERRL. EOMI. Normal conjunctiva. Sclera non-icteric. NECK: Supple. No nuchal rigidity. FROM. No JVD or bruit. RESPIRATORY: CTA CARDIAC: RRR. No murmur. ABDOMEN: Soft, non distended. No tenderness to palpation. No rebound or guarding. No masses. MUSCULOSKELETAL: Unremarkable. No edema. No discoloration. Gross motor strength symmetric. NEURO: Cranial nerves 2-12 grossly intact. Normal sensorium. No sensory or motor deficits noted. Speech normal. No pronator drift. SKIN: No rash or jaundice noted. LYMPH: No adenopathy. PSYCH: Depressed mood, flat affect. positive suicidal ideation. negative homicidal ideation. Medical Decision & Procedures Laboratory Results 01/03/17 15:06 Red Blood Count 4.88, Mean Corpuscular Volume 84.4, Mean Corpuscular Hemoglobin 29.1, Mean Corpuscular Hemoglobin Concent 34.5, Mean Platelet Volume 9.5, Neutrophils (%) (Auto) 74.8, Lymphocytes (%) (Auto) 17.3, Monocytes (%) (Auto) 7.1, Eosinophils (%) (Auto) 0.3, Basophils (%) (Auto) 0.2, Neutrophils # (Auto) 10.99, Lymphocytes # (Auto) 2.55, Monocytes # (Auto) 1.04, Eosinophils # (Auto) 0.05, Basophils # (Auto) 0.03 01/03/17 15:50 Test 01/03/17 15:06 01/03/17 15:50 01/03/17 15:51 01/03/17 17:45 White Blood Count 14.71 K/uL (4.8-10.8) Red Blood Count 4.88 M/uL (4.2-5.4) Hemoglobin 14.2 g/dL (12.0-16.0) Hematocrit 41.2 % (37-47) Mean Corpuscular Volume 84.4 fL (80-100) Mean Corpuscular Hemoglobin 29.1 pg (25-34) Mean Corpuscular Hemoglobin Concent 34.5 g/dl (32-36) Platelet Count 252 K/uL (130-400) Mean Platelet Volume 9.5 fL (7.4-10.4) Neutrophils (%) (Auto) 74.8 % Lymphocytes (%) (Auto) 17.3 % Monocytes (%) (Auto) 7.1 % Eosinophils (%) (Auto) 0.3 % Basophils (%) (Auto) 0.2 % Neutrophils # (Auto) 10.99 K/uL (1.4-6.5) Lymphocytes # (Auto) 2.55 K/uL (1.2-3.4) Monocytes # (Auto) 1.04 K/uL (0.11-0.59) Eosinophils # (Auto) 0.05 K/uL (0-0.5) Basophils # (Auto) 0.03 K/uL (0-0.2) RDW Standard Deviation 44.8 fL (36.4-46.3) RDW Coefficient of Variation 14.5 % (11.5-14.5) Immature Granulocyte % (Auto) 0.3 % Immature Granulocyte # (Auto) 0.05 K/uL (0.00-0.02) Red Blood Cell Morphology Unremarkable Salicylates Level < 1.7 mg/dl (2.8-20) Acetaminophen Level < 2 ug/ml (10-30) Anion Gap 10.0 mmol/L (3-11) Est Creatinine Clear Calc Drug Dose 92.9 ml/min Estimated GFR () 90.7 Estimated GFR (Non- 78.2 BUN/Creatinine Ratio 8.1 (10-20) Calcium Level 9.0 mg/dl (8.5-10.1) Total Bilirubin 0.2 mg/dl (0.2-1) Direct Bilirubin < 0.1 mg/dl (0-0.2) Aspartate Amino Transf (AST/SGOT) 41 U/L (15-37) Alanine Aminotransferase (ALT/SGPT) 78 U/L (12-78) Alkaline Phosphatase 104 U/L (45-117) Total Protein 6.9 gm/dl (6.4-8.2) Albumin 4.0 gm/dl (3.4-5.0) Thyroid Stimulating Hormone (TSH) 0.868 uIu/ml (0.300-4.500) Ethyl Alcohol mg/dL < 3.0 mg/dl (0-3) Bedside Glucose 81 mg/dl (70-90) Urine Color YELLOW Urine Appearance CLEAR (CLEAR) Urine pH 6.5 (4.5-7.5) Urine Specific [place] 1.008 (1.000-1.030) Urine Protein NEG (NEG) Urine Glucose (UA) NEG (NEG) Urine Ketones NEG (NEG) Urine Occult Blood NEG (NEG) Urine Nitrite NEG (NEG) Urine Bilirubin NEG (NEG) Urine Urobilinogen NEG (NEG) Urine Leukocyte Esterase NEG (NEG) Urine Opiates Screen NEG (NEG) Urine Methadone, Qualitative NEG (NEG) Urine Barbiturates POS (NEG) Urine Phencyclidine (PCP) Level NEG (NEG) Ur Amphetamine/Methamphetamine NEG (NEG) MDMA (Ecstasy) Screen NEG (NEG) Urine Benzodiazepines Screen NEG (NEG) Urine Cocaine Metabolite NEG (NEG) Urine Marijuana (THC) NEG (NEG) Laboratory results reviewed by me Medications Administered Medications (Trade) Dose Ordered Sig/Geeta Route Start Time Stop Time Status Last Admin Dose Admin Diphenhydramine HCl (Benadryl Inj) 25 mg NOW STAT IV 01/03/17 15:14 01/03/17 15:15 DC 01/03/17 15:27 25 MG Lorazepam (Ativan Inj) 1 mg NOW STAT IV 01/03/17 15:18 01/03/17 15:19 DC 01/03/17 15:28 1 MG Ondansetron HCl (Zofran Inj) 4 mg NOW STAT IV 01/03/17 15:20 01/03/17 15:22 DC 01/03/17 15:27 4 MG Lorazepam (Ativan Inj) 1 mg NOW STAT IV 01/03/17 16:27 01/03/17 16:28 DC 01/03/17 16:49 1 MG ED Course 1510: The patient was evaluated in room A6. A complete history and physical exam was performed by the assistant family teacher. 1514: Ordered Benadryl Inj 25 mg IV. 1518: Ordered Ativan Inj 1 mg IV. 1520: Ordered Zofran Inj 4 mg IV. 1619: The patient was evaluated in room A6. A complete history and physical exam was performed. 1627: Ordered Ativan Inj 1 mg IV. 1914: I reevaluated the patient and she is much more relaxed and awaiting the Dieter. Medical Decision Medication Reconciliation: I attest that I have personally reviewed the patient' s current medication list Blood pressure screening: Patient was found to have normal blood pressure on screening and does not require immediate follow-up. Triage Nursing notes reviewed. The patient's presentation and history were concerning for suicidal thoughts. Etiologies such as mood disorder, toxicologic, infection, hypoglycemia, electrolyte abnormalities, cardiac sources, intracerebral event, neurologic, as well as others were entertained. The patient was evaluated. She was quite worked up initially. She was given Benadryl and Ativan which helped relax her. Laboratory testing was unremarkable. She has a mild leukocytosis but always has a mild leukocytosis. Chemistry panel, LFTs and lipase were unremarkable. Her Tylenol, salicylate, and ethanol levels were unremarkable. Urinalysis unremarkable. The patient was given a second dose of IV Ativan. She was evaluated by the psychiatric pillowcase maker and referred to the [facility]. The patient was accepted at the [facility]. She was transported for further management. The chart was completed utilizing [employer] Speech voice recognition software. Grammatical errors, random word insertions, pronoun errors, and incomplete sentences are an occasional consequence of this system due to software limitations, ambient noise, and hardware issues. Any formal questions or concerns about the content, text, or information contained within the body of this dictation should be directly addressed to the physician for clarification. Impression Primary Impression: Mood disorder Scribe Attestation The scribe's documentation has been prepared under my direction and personally reviewed by me in its entirety. I confirm that the note above accurately reflects all work, treatment, procedures, and medical decision making performed by me. Departure Information Dispostion Mental Health Acute Care Referrals Hoa Moeller D.O. (PCP) Patient Instructions My [facility]
[2017-01-03 21:39] VITALS: BP 140/59; PULSE 81; O2SAT 97
[2017-03-27] MEDS ORDERED: TRAZ50TA35 PO (14:13)
[2017-05-09] MEDS ORDERED: BUPRTAB PO (02:07)
[2017-05-09] MEDS ORDERED: PROC1TAB5 PO (10:51)
[2017-05-09] MEDS ORDERED: PRZ1 PO (10:52)
[2017-05-09] MEDS ORDERED: FLUT1INH7 INH (13:03)
[2017-05-09] MEDS ORDERED: CLR10 PO (13:07)
[2017-05-09] MEDS ORDERED: DIPH25CA65 PO (13:13)
[2017-05-09] MEDS ORDERED: SUMA100T16 PO (14:12)
== END 2017-01-03 21:45 ==
LOC: C.EDB 14:35 → C.EDA 21:45
DX: F39 Unspecified mood [affective] disorder (principal); R45.851 Suicidal ideations; J45.909 Unspecified asthma, uncomplicated; Z91.5 Personal history of self-harm; Z91.81 History of falling; Z98.890 Other specified postprocedural states; Z83.3 Family history of diabetes mellitus; Z84.2 Family history of other diseases of the genitourinary system; Z82.49 Family history of ischemic heart disease and other diseases of the circulatory system; Z84.1 Family history of disorders of kidney and ureter; Z83.49 Family history of other endocrine, nutritional and metabolic diseases; Z79.899 Other long term (current) drug therapy

== ENCOUNTER 2017-02-23 01:46 | Emergency (ER) | payer OTHER ==
[~2017-02-23] VITALS: Ht 165.1 cm; Wt 84.7 kg
[2017-02-23 01:51] VITALS: Ht 165.1 cm; Wt 84.7 kg
[2017-02-23] MEDS ORDERED: CIPROFLOXACIN 500MG HOME PACK PO ONE (02:30)
[2017-02-23] MEDS ORDERED: CIPR-255 PO (02:30)
[2017-02-23 02:31] LABS: MANUAL MICROSCOPIC REQUIRED? YES; URINE APPEARANCE SL CLOUDY (CLEAR); URINE BILIRUBIN NEG (NEG); URINE COLOR YELLOW; URINE NITRITE NEG (NEG); URINE SPECIFIC GRAVITY <= 1.005 (1.000-1.030); UROBILINOGEN NEG (NEG)
[2017-02-23 02:34] LABS: REVIEW REQ? NO
[2017-02-23 02:37] VITALS: BP 116/51; PULSE 89; TEMP 36.7; O2SAT 100
[2017-02-23 02:39] LABS: URINE WBC >30 /hpf (0-5)
[2017-02-23 02:43] LABS: URINE BACTERIA 1+ (NEG); URINE RBC 0-4 /hpf (0-4)
[2017-02-23 02:44] LABS: ZZUR CULT IF INDIC CLEAN CATCH YES
--- NOTE | 2017-02-23 02:52 | EMERGENCY ROOM VISIT NOTE ---
ED Visit Note First contact with patient: 01:54 CHIEF COMPLAINT: Frequent and painful urination HISTORY OF PRESENT ILLNESS: This 26-year-old female presents to the emergency department complaining of increased frequency of urination, burning pain with urination, and a feeling of incomplete voiding off and on for the past 2-3 weeks. The patient passes very small volumes of urine with each episode of voiding. The patient does not have abdominal pain. They deny back pain, fever , or vaginal discharge. The patient has had frequent urinary tract infections in the past. Patient feels they are not at risk for STIs. REVIEW OF SYSTEMS: A 6 system review of systems was completed with positives and pertinent negatives listed in the HPI. ALLERGIES: See EMR MEDICATIONS: See EMR PMH: See EMR SOCIAL HISTORY: Lives with significant other PHYSICAL EXAM: Vital Signs: Reviewed Nurse's notes, vital signs stable. GENERAL : White female, in no acute distress, they do not appear toxic, well-developed, well-nourished. HEART: Regular rate and rhythm without murmur gallop or rub LUNG : Clear to auscultation bilateral ABDOMEN: Positive bowel sounds x 4. The abdomen is soft, mildly tender in the suprapubic area, but no masses or organs are felt. There is no CVA tenderness. The skin is clear. NEURO: Alert and oriented to person place and time. EMERGENCY DEPARTMENT COURSE: I examined the patient. The urine dip showed white and red blood cells as well as esterase. The urine was sent for culture and sensitivity. The patient was given Cipro. The patient was discharged home in good condition. Problem List Medical Problems: (1) Allergic reaction Status: Chronic (2) Anxiety Status: Chronic (3) Asthma Status: Chronic (4) Asthma, Unspecified Status: Chronic (5) Bipolar I disorder Status: Chronic (6) Contusion of multiple sites Status: Resolved (7) Fall Status: Resolved (8) Gallstones Status: Resolved (9) Ovarian cyst Status: Resolved Surgical Problems: (1) History of colonoscopy Status: Resolved Current/Historical Medications Scheduled Bupropion Hcl (Wellbutrin Xl), 150 MG PO QAM Ciprofloxacin Hcl (Cipro), 500 MG PO BID Cromolyn Sodium (Mastocytosis) (Cromolyn Sodium), 10 ML PO QID Fexofenadine Hcl (Shanell Allergy), 180 MG PO BID Fluticasone Furoate-Vilanterol (Breo Ellipta 200-25 Mcg/INH), 1 PUFF INH DAILY Gabapentin (Gabapentin), 600 MG PO TID Midodrine Hcl (Midodrine Hcl), 10 MG PO QID Montelukast Sod (Montelukast Sodium), 10 MG PO BID Pantoprazole (Protonix), 40 MG PO DAILY Prazosin HCl (Prazosin HCl), 1 MG PO HS Ranitidine Hcl (Zantac), 300 MG PO BID Topiramate (Topamax), 200 MG PO BID Scheduled PRN Albuterol Hfa (Ventolin Hfa), 2 PUFFS INH Q4-6HRS PRN for Wheezing Albuterol Sulf (Proventil 0.083% 2.5MG/3ML), 3 ML NEB QID PRN for SOB/Wheezing Albuterol Sulfate (Albuterol Sulfate Er), 4 MG PO BID PRN for SOB/Wheezing Gkpcmpgbaw-Upouoewvzftty-Kegmp (Fioricet), 2 TAB PO DIRECTED PRN for Headache Diclofenac (Voltaren), 50 MG PO TID PRN for Pain Diphenhydramine Hcl (Benadryl Allergy), 25-75 MG PO UD PRN for ALLERGIC REACTION Epinephrine (Epipen), 0.3 MG IM UD PRN for ALLERGIC REACTION Loratadine (Claritin), 10 MG PO DAILY PRN for Allergy Symptoms Lorazepam (Lorazepam), 1 MG PO Q6H PRN for Anxiety Meloxicam (Mobic), 15 MG PO DAILY PRN for Migraine Prochlorperazine Maleate (Compazine), 10 MG PO QID PRN for Nausea Sumatriptan Succinate (Imitrex), 100 MG PO UD PRN for Headache Sumatriptan Succinate (Imitrex Statdose), 6 MG IM UD PRN for Headache Trazodone Hcl (Trazodone), 50 MG PO HS PRN for Sleep Allergies Coded Allergies: Cetirizine (Verified Allergy, Severe, anapyhylaxis, 02/23/17) Hydroxyzine (Verified Allergy, Severe, anaphylaxis, 02/23/17) Quercetin (Verified Allergy, Severe, ANAPHYLAXIS, 02/23/17) Ziprasidone (Verified Allergy, Severe, Anaphylaxis, 02/23/17) Reported by PT Aripiprazole (Verified Allergy, Intermediate, ., 02/23/17) BEE STING (Verified Allergy, Intermediate, anaphylaxis, 02/23/17) Lurasidone (Verified Allergy, Intermediate, ., 02/23/17) Cefaclor (Verified Allergy, Mild, ANAPHYLAXIS, 02/23/17) CI Pigment Blue 63 (Verified Allergy, Unknown, ANAPHYLAXIS, 02/23/17) Clonazepam (Verified Allergy, Unknown, anaphylaxis, 02/23/17) Dexlansoprazole (Verified Allergy, Unknown, ANAPHYLAXIS, 02/23/17) Doxycycline (Verified Allergy, Unknown, UNKNOWN, 02/23/17) Iodinated Diagnostic Agents (Verified Allergy, Unknown, ANAPHYLAXIS, ) must have pretreats, Red Dye (Verified Allergy, Unknown, ANAPHYLAXIS, 02/23/17) Uncoded Nonscreenable Allergen (Verified Allergy, Unknown, ETHLYENEDIAMINE DIHYDROCHLORIDE- A [employer] GENERIC DRUGS, 02/23/17) ETHLYENEDIAMINE DIHYDROCHLORIDE- A [employer] GENERIC DRUGS: CAUSES ANAPHYLAXIS Vital Signs Date Time Temp Pulse Resp B/P (MAP) Pulse Ox O2 Delivery O2 Flow Rate FiO2 02/23/17 02:37 36.7 89 18 116/51 100 02/23/17 01:51 36.7 89 18 116/51 100 Room Air Laboratory Results Test 02/23/17 02:15 Urine Color YELLOW Urine Appearance SL CLOUDY (CLEAR) Urine pH 7.0 (4.5-7.5) Urine Specific [facility] <= 1.005 (1.000-1.030) Urine Protein TRACE (NEG) Urine Glucose (UA) NEG (NEG) Urine Ketones NEG (NEG) Urine Occult Blood 3+ (NEG) Urine Nitrite NEG (NEG) Urine Bilirubin NEG (NEG) Urine Urobilinogen NEG (NEG) Urine Leukocyte Esterase LARGE (NEG) Urine RBC 0-4 /hpf (0-4) Urine WBC >30 /hpf (0-5) Urine Epithelial Cells 10-20 /lpf (0-5) Urine Bacteria 1+ (NEG) Urine Test NEG (NEG) Medications Administered Medications (Trade) Dose Ordered Sig/Geeta Route Start Time Stop Time Status Last Admin Dose Admin Ciprofloxacin (Cipro 500MG Home Pack) 1 homepack UD ONCE PO 02/23/17 02:30 02/23/17 02:32 DC 02/23/17 02:30 1 HOMEPACK Departure Information Impression Primary Impression: Urinary tract infection Dispostion Home / Self-Care Condition GOOD Prescriptions Ciprofloxacin Hcl (CIPRO) 500 Mg Tab 500 MG PO BID, #18 TAB Prov: Efra Garcia PA-C 02/23/17 Referrals Hoa Moeller D.O. (PCP) Forms HOME CARE DOCUMENTATION FORM, IMPORTANT VISIT INFORMATION Patient Instructions My [facility] Additional Instructions You were seen and evaluated today on an emergency basis only. This is not a substitute for, or an effort to provide, complete comprehensive medical care. It is not possible to recognize and treat all injuries or illnesses in a single emergency department visit. For this reason it is recommended that you followup with your primary care physician for persisting symptoms. Ciprofloxacin(Cipro) 500mg: Take one pill twice daily for 10 days for your infection. All antibiotics can cause diarrhea. If this occurs and you feel worse or it does not resolve in 1-2 days follow up with your doctor or return to the Emergency Department as this could be signs of serious underlying problems. If you experience any pain in your tendons or any tendon injury return to the ER for re-evaluation. Any medication can cause an allergic reaction, stop the pills immediately and return to the ER for rash, hives, breathing difficulties, or swelling. You are welcome to return to the emergency department anytime with new, worsening, or concerning symptoms.
[2017-03-27] MEDS ORDERED: TRAZ50TA35 PO (14:13)
[2017-05-09] MEDS ORDERED: BUPRTAB PO (02:07)
[2017-05-09] MEDS ORDERED: PROC1TAB5 PO (10:51)
[2017-05-09] MEDS ORDERED: PRZ1 PO (10:52)
[2017-05-09] MEDS ORDERED: FLUT1INH7 INH (13:03)
[2017-05-09] MEDS ORDERED: CLR10 PO (13:07)
[2017-05-09] MEDS ORDERED: DIPH25CA65 PO (13:13)
[2017-05-09] MEDS ORDERED: SUMA100T16 PO (14:12)
== END 2017-02-23 02:37 | disposition home or self-care (01) ==
LOC: C.EDB 01:48 → C.EDA 02:37
DX: N39.0 Urinary tract infection, site not specified (principal); F41.9 Anxiety disorder, unspecified; J45.909 Unspecified asthma, uncomplicated; F31.9 Bipolar disorder, unspecified; Z79.899 Other long term (current) drug therapy

== ENCOUNTER → 2017-02-28 | Outpatient (CLI) | payer OTHER ==
[~2017-02-28] MED LIST changes: +ALBINS/ NEB; +ATV1 PO; +BUPRTAB PO; +BUTA1CAP17 PO; +CIPR-255 PO; +CLR10 PO; +DICL50TA3 PO; +DIPH25CA65 PO; +DSY50 PO; +FEXO1TAB49 PO; -FLUO20CA35 PO; +FLUT1INH7 INH; +GABA1CAP4 PO; +MELO7.5T5 PO; +METH4PAK PO; +MIDO10TA PO; +ONDA4TAB46 PO; +PANT40TA PO; +PRED50TA PO; +PROC1TAB5 PO; +PROG100C6 PO; +PROG100C6 PV; +PRZ1 PO; +RANI300T PO; +SNG10 PO; +SUMA100T16 PO; +SUMA6KIT IM; +TOPI100T34 PO; +TOPI200T20 PO; +TRAZ50TA35 PO; +VNTHFA/IN INH; +[UNRECOGNIZED DRUG - CODE] PO
--- NOTE | 2017-02-28 17:51 | DIAGNOSTIC IMAGING REPORT ---
(RENAL)RETROPERITON COMP CLINICAL HISTORY: 26 years-old Female presenting with CVA TENDERNESS; R/O PYELONEPHRITIS. TECHNIQUE: Real-time grayscale and limited color Doppler ultrasound imaging of the kidneys and bladder was performed. COMPARISON: 05/12/2015. FINDINGS: Right kidney: Normal echogenicity. Right kidney measures 9 cm. No hydronephrosis. No convincing evidence of calculus or mass. Normal perfusion. Left kidney: Normal echogenicity. Left kidney measures 9.8 cm. No hydronephrosis. No convincing evidence of calculus or mass. Normal perfusion. Bladder: No bladder wall thickening. Ureteral jets not demonstrated. Other: Echogenicity of the liver suggestive of steatosis. IMPRESSION: 1. Normal renal ultrasound. No obstruction. 2. Suspected hepatic steatosis. Electronically signed by: Irwin Beltrán M.D. 02/28/2017 5:49 PM Dictated Date/Time: 02/28/2017 5:48 PM
== END | disposition home or self-care (01) ==
LOC: C.ULTR 17:13
PROVIDERS: ATTEND Family Medicine
DX: M54.9 Dorsalgia, unspecified (principal)

== ENCOUNTER 2017-03-25 17:56 | Emergency (ER) | payer OTHER ==
[~2017-03-25] VITALS: Ht 165.1 cm; Wt 82.7 kg
[~2017-03-25 17:56] MED LIST changes: -ALBINS/ NEB; -ATV1 PO; -BUPRTAB PO; -BUTA1CAP17 PO; -CLR10 PO; -DICL50TA3 PO; -DIPH25CA65 PO; -DSY50 PO; -FEXO1TAB49 PO; -FLUT1INH7 INH; -GABA1CAP4 PO; -MELO7.5T5 PO; -METH4PAK PO; -MIDO10TA PO; -ONDA4TAB46 PO; -PANT40TA PO; -PRED50TA PO; -PROC1TAB5 PO; -PROG100C6 PO; -PROG100C6 PV; -PRZ1 PO; -RANI300T PO; -SNG10 PO; -SUMA100T16 PO; -SUMA6KIT IM; -TOPI100T34 PO; -TOPI200T20 PO; -TRAZ50TA35 PO; -VNTHFA/IN INH; -[UNRECOGNIZED DRUG - CODE] PO
[2017-03-25 18:04] VITALS: TEMP 37; Ht 165.1 cm; Wt 82.7 kg
[2017-03-25 18:05] VITALS: O2SAT 100
[2017-03-25] MEDS ORDERED: METHYLPREDNISOLONE 125 MG VIAL IV STA (18:09)
[2017-03-25] MEDS ORDERED: DiphenhydrAMINE HCL 50 MG/ML VIAL IV STA (18:09)
[2017-03-25] MEDS ORDERED: ONDANSETRON INJ 2 MG/ML 2 ML VIAL IV STA (18:09)
[2017-03-25] MEDS ORDERED: SODIUM CHLORIDE 0.9% 500ML 500 ML IV STA (18:09)
[2017-03-25] MEDS ORDERED: ALBUT/IPRATROP 3MG/0.5MG NEB 3 ML VIAL INH STA (18:09)
[2017-03-25] MEDS ORDERED: LORAZEPAM 2 MG/ML 1 ML VIAL IV STA (18:16)
--- NOTE | 2017-03-25 18:39 | DIAGNOSTIC IMAGING REPORT ---
CHEST ONE VIEW PORTABLE CLINICAL HISTORY: Shortness of breath. COMPARISON STUDY: Chest radiograph July 18, 2016. FINDINGS: Lung volumes are normal. No pneumothorax or pleural effusion is present. There is no evidence of pulmonary edema. Cardiac size is normal. Mediastinal contours are normal. No consolidation is identified. IMPRESSION: No acute cardiopulmonary findings. Electronically signed by: Segundo Zabala M.D. 03/25/2017 6:38 PM Dictated Date/Time: 03/25/2017 6:38 PM
[2017-03-25 18:50] LABS: HEMATOCRIT 41.5 % (37-47); MEAN CELL VOLUME 83.8 fL (80-100); MEAN CORPUSCULAR HEMOGLOBIN 30.5 pg (25-34); MEAN CORPUSCULAR HGB CONC 36.4 g/dl (32-36); MEAN PLATELET VOLUME 9.7 fL (7.4-10.4); PLATELET COUNT 214 K/uL (130-400); RED BLOOD COUNT 4.95 M/uL (4.2-5.4); WHITE BLOOD COUNT 11.18 K/uL (4.8-10.8)
--- NOTE | 2017-03-25 18:50 | EMERGENCY ROOM VISIT NOTE ---
History Report prepared by Vee: Dharmesh Zhu Under the Supervision of: Dr. Roxana Kilgore D.O. First contact with patient: 18:05 Chief Complaint: SEIZURE Stated Complaint: SEIZURE History of Present Illness The patient is a 26 year old female who presents to the Emergency Room with complaints of five seizures that began two hours ago. The nursing staff states that the patient believes she had an allergic reaction to Benadryl PO because she is allergic to red dye. They report the patient had two doses of epinephrin prior to arrival. The nursing staff notes the patient thinks she is very close to going into another anaphylactic episode. The patient states that she had similar symptoms two months ago when she had a mole removed. She reports that she does not know if it was because of the anesthetic that was used. The patient notes that she has a history of mast cell attacks, and has seizures when she is having attacks. She states that when she has seizures, she typically bites her tongue, develops throat tightness, develops hives, and urinates in her pants. The patient reports that today she became short of breath, nauseous, and developed throat tightness. She notes that typically a dose of Solu-Medrol, Benadryl IV, Zofran, and a breathing treatment make her feel better. The patient states that she does not know how it started. She reports that she was at her friend's house, got up to leave, and she her symptoms began. The patient notes that if she had more urine in her bladder, she would have urinated her pants. She states that she took Ativan prior to arrival, and she has not had a seizure since. The patient reports she is currently on Neurontin and Topamax. She notes that she went to the [facility] a few months ago, and did well after discharge. The patient denies rash, chance of , dysuria. Source of History: patient, nursing staff Onset: two hours ago Position: other (global) Quality: other (seizure) Timing: resolved Modifying Factors (Relieving): other (Ativan) Associated Symptoms: + SOB, + nausea, No urinary symptoms, No rash Note: Associated symptoms: throat tightness The patient denies chance of and thinking of traumatic things. Review of Systems See HPI for pertinent positives & negatives. A total of 10 systems reviewed and were otherwise negative. Past Medical & Surgical Medical Problems: (1) Allergic reaction (2) anaphylaxis/, seizure (3) Anxiety (4) Asthma (5) Asthma, Unspecified (6) Bipolar I disorder (7) Contusion of multiple sites (8) Fall (9) Gallstones (10) Headache (11) Mast cell disorder (12) Ovarian cyst (13) Seizure-like activity Surgical Problems: (1) History of colonoscopy Family History Cancer Diabetes mellitus Endometriosis MOTHER Heart disease Hypertrophic cardiomyopathy FATHER aunt Kidney disease Kidney stones Lung disease PCOS SISTER Social History Smoking Status: Former Smoker Alcohol Use: none Drug Use: none Marital Status: Housing Status: lives with family Occupation Status: unemployed Current/Historical Medications Scheduled Bupropion Hcl (Wellbutrin Xl), 150 MG PO QAM Epinephrine (Epipen 2-Layton), 1 APPLN IM DIRECTED Fexofenadine Hcl (Shanell Allergy), 180 MG PO BID Fluticasone Furoate-Vilanterol (Breo Ellipta 200-25 Mcg/INH), 1 PUFF INH DAILY Gabapentin (Gabapentin), 600 MG PO TID Methylprednisolone (Medrol Dosepak), 1 PKT PO UD Midodrine Hcl (Midodrine Hcl), 10 MG PO QID Montelukast Sod (Montelukast Sodium), 10 MG PO BID Pantoprazole (Protonix), 40 MG PO DAILY Prazosin HCl (Prazosin HCl), 1 MG PO HS Ranitidine Hcl (Zantac), 300 MG PO BID Topiramate (Topamax), 200 MG PO BID Scheduled PRN Albuterol Hfa (Ventolin Hfa), 2 PUFFS INH Q4-6HRS PRN for Wheezing Albuterol Sulf (Proventil 0.083% 2.5MG/3ML), 3 ML NEB QID PRN for SOB/Wheezing Albuterol Sulfate (Albuterol Sulfate Er), 4 MG PO BID PRN for SOB/Wheezing Mysdpzmdub-Tpozlnojmiwiv-Gapxy (Fioricet), 2 TAB PO DIRECTED PRN for Headache Cromolyn Sodium (Mastocytosis) (Cromolyn Sodium), 10 ML PO QID PRN for FLARES Diclofenac (Voltaren), 50 MG PO TID PRN for Pain Diphenhydramine Hcl (Benadryl Allergy), 25-75 MG PO UD PRN for ALLERGIC REACTION Epinephrine (Epipen), 0.3 MG IM UD PRN for ALLERGIC REACTION Loratadine (Claritin), 10 MG PO DAILY PRN for Allergy Symptoms Lorazepam (Lorazepam), 1 MG PO Q6H PRN for Anxiety Meloxicam (Mobic), 15 MG PO DAILY PRN for Migraine Prochlorperazine Maleate (Compazine), 10 MG PO QID PRN for Nausea Sumatriptan Succinate (Imitrex), 100 MG PO UD PRN for Headache Sumatriptan Succinate (Imitrex Statdose), 6 MG IM UD PRN for Headache Trazodone Hcl (Trazodone), 50 MG PO HS PRN for Sleep Allergies Coded Allergies: Cetirizine (Verified Allergy, Severe, anapyhylaxis, 03/25/17) Hydroxyzine (Verified Allergy, Severe, anaphylaxis, 03/25/17) Quercetin (Verified Allergy, Severe, ANAPHYLAXIS, 03/25/17) Ziprasidone (Verified Allergy, Severe, Anaphylaxis, 03/25/17) Reported by PT Aripiprazole (Verified Allergy, Intermediate, ., 03/25/17) BEE STING (Verified Allergy, Intermediate, anaphylaxis, 03/25/17) Lurasidone (Verified Allergy, Intermediate, ., 03/25/17) Cefaclor (Verified Allergy, Mild, ANAPHYLAXIS, 03/25/17) CI Pigment Blue 63 (Verified Allergy, Unknown, ANAPHYLAXIS, 03/25/17) Clonazepam (Verified Allergy, Unknown, anaphylaxis, 03/25/17) Dexlansoprazole (Verified Allergy, Unknown, ANAPHYLAXIS, 03/25/17) Doxycycline (Verified Allergy, Unknown, UNKNOWN, 03/25/17) Iodinated Diagnostic Agents (Verified Allergy, Unknown, ANAPHYLAXIS, ) must have pretreats, Red Dye (Verified Allergy, Unknown, ANAPHYLAXIS, 03/25/17) Uncoded Nonscreenable Allergen (Verified Allergy, Unknown, ETHLYENEDIAMINE DIHYDROCHLORIDE- A [employer] GENERIC DRUGS, 03/25/17) ETHLYENEDIAMINE DIHYDROCHLORIDE- A [employer] GENERIC DRUGS: CAUSES ANAPHYLAXIS Physical Exam Vital Signs Date Time Temp Pulse Resp B/P (MAP) Pulse Ox O2 Delivery O2 Flow Rate FiO2 03/25/17 20:30 133/59 03/25/17 20:26 93 22 100 03/25/17 20:00 135/59 03/25/17 19:56 99 6 98 03/25/17 19:30 127/63 03/25/17 19:26 105 18 88 03/25/17 19:24 103 20 118/55 100 Nasal Cannula 03/25/17 19:21 118/55 03/25/17 19:01 94 18 135/59 97 Room Air 03/25/17 19:00 135/59 03/25/17 18:56 100 26 98 03/25/17 18:26 110 25 98 03/25/17 18:09 99 Room Air 03/25/17 18:05 112 03/25/17 18:05 100 Room Air 03/25/17 18:04 37.0 107 20 138/65 99 Room Air 03/25/17 18:00 138/65 Physical Exam GENERAL: Patient is in no acute distress. HEENT: No acute trauma, normocephalic atraumatic, mucous membranes moist, no nasal congestion, no scleral icterus. No uvular edema. NECK: No stridor, no adenopathy, no meningismus, trachea is midline. LUNGS: Clear to auscultation bilaterally, no wheeze, no rhonchi, breath sounds equal. HEART: Tachycardic with a regular rhythm, no murmurs ABDOMEN: Soft, nontender, bowel sounds positive, no hernias, no peritonitis. EXTREMITIES: No cyanosis or edema, full range of motion of all the joints without pain or difficulty, no signs for acute trauma. NEUROLOGIC: Oriented x 3, no acute motor or sensory deficits, no focal weakness. SKIN: No rash, no jaundice, no diaphoresis. No hives. Medical Decision & Procedures ER Provider Diagnostic Interpretation: X-ray results as stated below per interpretation by me and the radiologist: CHEST ONE VIEW PORTABLE CLINICAL HISTORY: Shortness of breath. COMPARISON STUDY: Chest radiograph July 18, 2016. FINDINGS: Lung volumes are normal. No pneumothorax or pleural effusion is present. There is no evidence of pulmonary edema. Cardiac size is normal. Mediastinal contours are normal. No consolidation is identified. IMPRESSION: No acute cardiopulmonary findings. Electronically signed by: Segundo Zabala M.D. 03/25/2017 6:38 PM Dictated Date/Time: 03/25/2017 6:38 PM Laboratory Results 03/25/17 18:30 03/25/17 18:30 Test 03/25/17 18:30 03/25/17 19:50 Red Blood Count 4.95 M/uL (4.2-5.4) Mean Corpuscular Volume 83.8 fL (80-100) Mean Corpuscular Hemoglobin 30.5 pg (25-34) Mean Corpuscular Hemoglobin Concent 36.4 g/dl (32-36) RDW Standard Deviation 38.6 fL (36.4-46.3) RDW Coefficient of Variation 12.6 % (11.5-14.5) Mean Platelet Volume 9.7 fL (7.4-10.4) Anion Gap 8.0 mmol/L (3-11) Est Creatinine Clear Calc Drug Dose 92.3 ml/min Estimated GFR () 91.8 Estimated GFR (Non- 79.2 BUN/Creatinine Ratio 11.3 (10-20) Calcium Level 9.3 mg/dl (8.5-10.1) Total Bilirubin 0.2 mg/dl (0.2-1) Aspartate Amino Transf (AST/SGOT) 20 U/L (15-37) Alanine Aminotransferase (ALT/SGPT) 41 U/L (12-78) Alkaline Phosphatase 106 U/L (45-117) Total Protein 6.9 gm/dl (6.4-8.2) Albumin 4.0 gm/dl (3.4-5.0) Globulin 2.9 gm/dl (2.5-4.0) Albumin/Globulin Ratio 1.4 (0.9-2) Urine Color DK YELLOW Urine Appearance CLEAR (CLEAR) Urine pH 6.5 (4.5-7.5) Urine Specific [place] 1.012 (1.000-1.030) Urine Protein NEG (NEG) Urine Glucose (UA) NEG (NEG) Urine Ketones NEG (NEG) Urine Occult Blood NEG (NEG) Urine Nitrite NEG (NEG) Urine Bilirubin NEG (NEG) Urine Urobilinogen NEG (NEG) Urine Leukocyte Esterase TRACE (NEG) Urine WBC (Auto) 1-5 /hpf (0-5) Urine RBC (Auto) 0-4 /hpf (0-4) Urine Hyaline Casts (Auto) 0 /lpf (0-5) Urine Epithelial Cells (Auto) >30 /lpf (0-5) Urine Bacteria (Auto) NEG (NEG) Laboratory results reviewed by me. Medications Administered Medications (Trade) Dose Ordered Sig/Geeta Route Start Time Stop Time Status Last Admin Dose Admin Diphenhydramine HCl (Benadryl Inj) 50 mg NOW STAT IV 03/25/17 18:09 03/25/17 18:13 DC 03/25/17 18:59 50 MG Methylprednisolone Sodium Succinate (Solu-Medrol IV) 125 mg NOW STAT IV 03/25/17 18:09 03/25/17 18:13 DC 03/25/17 18:59 125 MG Albuterol/ Ipratropium (Duoneb) 3 ml NOW STAT INH 03/25/17 18:09 03/25/17 18:13 DC 03/25/17 18:59 3 ML Ondansetron HCl (Zofran Inj) 4 mg NOW STAT IV 03/25/17 18:09 03/25/17 18:13 DC 03/25/17 18:59 4 MG Sodium Chloride 500 ml @ 999 mls/hr Q31M STAT IV 03/25/17 18:09 03/25/17 18:39 DC 03/25/17 18:59 999 MLS/HR Lorazepam (Ativan Inj) 1 mg NOW STAT IV 03/25/17 18:16 03/25/17 18:17 DC 03/25/17 18:59 1 MG Epinephrine (Epipen) 0.3 mg NOW STAT IM 03/25/17 20:28 03/25/17 20:30 DC 03/25/17 20:40 0.3 MG ECG Indication: other (seizure) Rate (beats per minute): 101 Rhythm: sinus tachycardia Findings: no acute ischemic change, no ectopy ED Course 1806: The patient was evaluated in room C09. A complete history and physical exam was performed. 1808: Ordered Sodium Chloride 500 ml @ 999 mls/hr IV, Zofran Inj 4mg IV, Duoneb 3ml INH, Solu-Medrol IV 125mg IV, Benadryl Inj 50mg IV 1815: Ordered Ativan Inj 1mg iV 2022: Reevaluated the patient. Discussed results and discharge instructions: she verbalized understanding and agreement. The patient is ready for discharge when she receives her medication. 2027: Ordered Epipen 0.3mg IM Medical Decision The patient is a 26 year old female who presents to the ED with complaints of resolved seizures. Differential diagnoses considered include seizure-like activity, seizure, pseudoseizure, anxiety, dehydration, anaphylaxis, allergic reaction, electrolyte imbalance. There is a mild leukocytosis, this could be consistent with infection or just her stress and worry. No concerning anemia. No significant electrolyte abnormality, kidney failure or hepatitis. EKG shows a sinus tachycardia, no acute ischemia. Chest film does not show mediastinal widening, pneumonia or pneumothorax. On exam, the patient had no hives. Her lungs were clear, there was no uvular edema, she was not hypoxic or toxic. She was quite anxious. The patient received IV Ativan, IV Benadryl and IV Solu-Medrol. She received IV saline. She received IV Zofran. With this medication regimen, the patient did seem improved. I talked to her about options, she does want to be discharged home, I think this is reasonable. She has in the past been discharged on steroids, this has prevented her from having recurrent reactions. A prescription for steroids was given. Of note, upon discharge, the patient began complaining of itchiness. She thought maybe she would need more Benadryl. She was quite somnolent though and I did not think additional Benadryl was indicated. Again, there were no hives, she was not stridorous, there was no wheezing and no uvular edema. Shortly after her request for more Benadryl, she decided that she wanted to go home. She was discharged in stable condition. Of note, I highly doubt real seizure events this evening. She has had multiple visits to the emergency room for similar complaints, she's had multiple specialist evaluations. No definitive diagnosis has been made. Impression Primary Impression: Seizure-like activity Additional Impression: Allergic reaction Scribe Attestation The scribe's documentation has been prepared under my direction and personally reviewed by me in its entirety. I confirm that the note above accurately reflects all work, treatment, procedures, and medical decision making performed by me. Departure Information Dispostion Home / Self-Care Prescriptions Epinephrine (EPIPEN 2-LAYTON) 0.3 Mg Inj 1 APPLN IM DIRECTED, #3 APPL 2 Refills Prov: Damien Killian M.D. 03/25/17 Methylprednisolone (MEDROL DOSEPAK) 4 Mg [place] 1 PKT PO UD for 6 Days, #1 PKT Prov: Damien Killian M.D. 03/25/17 Referrals Hoa Moeller D.O. (PCP) Forms HOME CARE DOCUMENTATION FORM, IMPORTANT VISIT INFORMATION Patient Instructions My [facility] Additional Instructions care for your symptoms as before epipen with you at all times medrol dose pack as directed return if worsening Problem Qualifiers
[2017-03-25 19:06] LABS: BUN/CREATININE RATIO 11.3 (10-20); CALCIUM 9.3 mg/dl (8.5-10.1); CREATININE 0.99 mg/dl (0.60-1.20); POTASSIUM 3.2 mmol/L (3.5-5.1)
[2017-03-25 19:09] LABS: ALB/GLOB RATIO 1.4 (0.9-2)
[2017-03-25 20:04] LABS: URINE APPEARANCE CLEAR (CLEAR); URINE BILIRUBIN NEG (NEG); URINE COLOR DK YELLOW; URINE EPITHELIAL CELL AUTO >30 /lpf (0-5); URINE NITRITE NEG (NEG); URINE PH 6.5 (4.5-7.5); URINE SPECIFIC GRAVITY 1.012 (1.000-1.030); UROBILINOGEN NEG (NEG)
[2017-03-25 20:07] LABS: MANUAL MICROSCOPIC REQUIRED? NO; REVIEW REQ? NO
[2017-03-25 20:26] VITALS: PULSE 93; O2SAT 100
[2017-03-25] MEDS ORDERED: EPINEPHRINE ADULT AUTO-INJECT 0.3 MG SYR IM STA (20:28)
[2017-03-25 20:30] VITALS: BP 133/59
[2017-03-25] MEDS ORDERED: METH4PAK PO (20:32)
[2017-03-25] MEDS ORDERED: EPP3/2 IM (20:32)
[2017-03-27] MEDS ORDERED: TRAZ50TA35 PO (14:13)
[2017-05-09] MEDS ORDERED: BUPRTAB PO (02:07)
[2017-05-09] MEDS ORDERED: PROC1TAB5 PO (10:51)
[2017-05-09] MEDS ORDERED: PRZ1 PO (10:52)
[2017-05-09] MEDS ORDERED: FLUT1INH7 INH (13:03)
[2017-05-09] MEDS ORDERED: CLR10 PO (13:07)
[2017-05-09] MEDS ORDERED: DIPH25CA65 PO (13:13)
[2017-05-09] MEDS ORDERED: SUMA100T16 PO (14:12)
== END 2017-03-25 21:00 | disposition home or self-care (01) ==
LOC: EDBD 17:56 → C.EDC 17:57
DX: G40.909 Epilepsy, unspecified, not intractable, without status epilepticus (principal); T78.40XA Allergy, unspecified, initial encounter; X58.XXXA Exposure to other specified factors, initial encounter; R00.0 Tachycardia, unspecified; F31.9 Bipolar disorder, unspecified; F41.9 Anxiety disorder, unspecified; J45.909 Unspecified asthma, uncomplicated; K86.1 Other chronic pancreatitis; N83.209 Unspecified ovarian cyst, unspecified side; Z87.828 Personal history of other (healed) physical injury and trauma; Z91.81 History of falling; Z87.891 Personal history of nicotine dependence; Z79.899 Other long term (current) drug therapy; Z88.8 Allergy status to other drugs, medicaments and biological substances; Z91.030 Bee allergy status; Z91.041 Radiographic dye allergy status; Z80.9 Family history of malignant neoplasm, unspecified; Z83.3 Family history of diabetes mellitus; Z82.49 Family history of ischemic heart disease and other diseases of the circulatory system; Z84.1 Family history of disorders of kidney and ureter

== ENCOUNTER 2017-03-26 17:41 | Emergency (ER) | payer OTHER ==
[~2017-03-26] VITALS: Ht 165.1 cm; Wt 78.7 kg
[2017-03-26 17:41] VITALS: TEMP 37.4; Ht 165.1 cm; Wt 78.7 kg
[~2017-03-26 17:41] MED LIST changes: +METH4PAK PO
[2017-03-26] MEDS ORDERED: LORAZEPAM 2 MG/ML 1 ML VIAL ONE (17:57)
[2017-03-26] MEDS ORDERED: SODIUM CHLORIDE 0.9% 1000ML 1,000 ML IV STA ×2 (18:04→19:20)
[2017-03-26 18:41] LABS: MEAN CELL VOLUME 84.8 fL (80-100); MEAN CORPUSCULAR HEMOGLOBIN 29.5 pg (25-34); MEAN CORPUSCULAR HGB CONC 34.8 g/dl (32-36); MEAN PLATELET VOLUME 9.4 fL (7.4-10.4); PLATELET COUNT 221 K/uL (130-400); RED BLOOD COUNT 4.95 M/uL (4.2-5.4); WHITE BLOOD COUNT 12.33 K/uL (4.8-10.8)
[2017-03-26 18:56] LABS: PREG INTERNAL NEGATIVE QC NEG CLEAR BACKGROUND; PREG INTERNAL POSITIVE QC POS CONTROL LINE
[2017-03-26 19:04] LABS: ALB/GLOB RATIO 1.3 (0.9-2); BUN/CREATININE RATIO 10.3 (10-20); CALCIUM 9.5 mg/dl (8.5-10.1); CREATININE 1.1 mg/dl (0.60-1.20)
[2017-03-26 19:05] LABS: POTASSIUM 3.7 mmol/L (3.5-5.1)
[2017-03-26 19:10] LABS: COMPLETE YES; EOS % 0.1 %; IG% 0.2 %; LYMPH % 16.1 %; LYMPH ABS # 1.98 K/uL (1.2-3.4); MONO % 4.8 %; NEUT % 78.8 %
[2017-03-26] MEDS ORDERED: KETOROLAC TROMETHAMINE 30 MG/ML VIAL IV STA (19:52)
[2017-03-26] MEDS ORDERED: DiphenhydrAMINE HCL 50 MG/ML VIAL IV STA (19:52)
[2017-03-26] MEDS ORDERED: PROCHLORPERAZINE 5 MG/ML 2 ML VIAL IV STA (19:52)
--- NOTE | 2017-03-26 20:46 | EMERGENCY ROOM VISIT NOTE ---
History First contact with patient: 17:49 Chief Complaint: SEIZURE Stated Complaint: SEIZURES Nursing Triage Summary: Per EMS, patient had a total of 6 seizures witnessed by her mother and 2 witnessed by EMS. Patient on a tonic clonic then post ictal. Patient unresponsive. Patient received 1 mg Ativan and 4 mg of Zofran enroute. History of Present Illness The patient is a 26 year old female who presents to the Emergency Room via EMS for evaluation of seizures. History is obtained by the patient's mother, as the patient is unable or unwilling to speak. The mother reports that the patient called her, stating that she was not feeling well and felt like she was going to vomit. The mother drove to the patient's house and states that she witnessed 6 seizures. She called 911 and the patient also had 2 seizures witnessed by EMS. They state that she was minimally responsive after these and seemed to be post ictal. She was given 1 mg Ativan and 4 mg Zofran prior to arrival. The mother feels that the patient may have taken Benadryl prior to her symptoms. She sometimes takes epinephrine when she has these symptoms, but the mother states that she did not seem to have difficulty breathing so she did not give her the epinephrine. The mother reports that this is different from her other seizures because she has been unresponsive at times. The patient has been seen by multiple specialists with no diagnosis. She does have a history of POTS and gastroparesis. The mother reports that the patient has pseudoseizures. Review of Systems A complete 10 point review of systems was reviewed with the patient with pertinent positives and negatives as per history of present illness. All else were negative. 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 (26) Right ovarian cyst (27) Right ovarian cyst (28) Rupture of ovarian cyst (29) Seizure-like activity (30) Suicidal ideation (31) Syncope (32) Syncope (33) Vaginal discharge (34) Wrist sprain Surgical Problems: (1) History of colonoscopy Social History Problems: (1) Contusion of multiple sites Family History Cancer Diabetes mellitus Endometriosis MOTHER Heart disease Hypertrophic cardiomyopathy FATHER aunt Kidney disease Kidney stones Lung disease PCOS SISTER Social History Smoking Status: Unknown if Ever Smoked Alcohol Use: none Drug Use: none Marital Status: Housing Status: lives with family Occupation Status: unemployed Current/Historical Medications Scheduled Bupropion Hcl (Wellbutrin Xl), 150 MG PO QAM Fexofenadine Hcl (Shanell Allergy), 180 MG PO BID Fluticasone Furoate-Vilanterol (Breo Ellipta 200-25 Mcg/INH), 1 PUFF INH DAILY Gabapentin (Gabapentin), 600 MG PO TID Methylprednisolone (Medrol Dosepak), 1 PKT PO UD Midodrine Hcl (Midodrine Hcl), 10 MG PO QID Montelukast Sod (Montelukast Sodium), 10 MG PO BID Pantoprazole (Protonix), 40 MG PO DAILY Prazosin HCl (Prazosin HCl), 1 MG PO HS Progesterone (Prometrium), 100 MG PV UD Ranitidine Hcl (Zantac), 300 MG PO BID Topiramate (Topamax), 200 MG PO BID Scheduled PRN Albuterol Hfa (Ventolin Hfa), 2 PUFFS INH Q4-6HRS PRN for Wheezing Albuterol Sulf (Proventil 0.083% 2.5MG/3ML), 3 ML NEB QID PRN for SOB/Wheezing Unzxdsihuj-Wkwiafxmxsiqn-Heskp (Fioricet), 2 CAP PO UD PRN for Headache Cromolyn Sodium (Mastocytosis) (Cromolyn Sodium), 10 ML PO QID PRN for Flares Diclofenac (Voltaren), 50 MG PO TID PRN for Pain Diphenhydramine Hcl (Benadryl Allergy), 25-75 MG PO UD PRN for ALLERGIC REACTION Epinephrine (Epipen), 0.3 MG IM UD PRN for ALLERGIC REACTION Loratadine (Claritin), 10 MG PO DAILY PRN for Allergy Symptoms Lorazepam (Lorazepam), 1 MG PO Q6H PRN for Anxiety Meloxicam (Mobic), 15 MG PO DAILY PRN for Migraine Prochlorperazine Maleate (Compazine), 10 MG PO QID PRN for Nausea Sumatriptan Succinate (Imitrex), 100 MG PO UD PRN for Headache Sumatriptan Succinate (Imitrex Statdose), 6 MG IM UD PRN for Headache Trazodone Hcl (Trazodone), 50 MG PO HS PRN for Sleep Physical Exam Vital Signs Date Time Temp Pulse Resp B/P (MAP) Pulse Ox O2 Delivery O2 Flow Rate FiO2 03/26/17 20:53 71 20 117/52 96 Room Air 03/26/17 19:34 121/80 03/26/17 19:16 109 22 97 03/26/17 18:46 134 24 97 03/26/17 18:41 111 27 97 03/26/17 18:11 108 25 97 03/26/17 18:00 109 03/26/17 17:55 98/65 03/26/17 17:47 113/45 03/26/17 17:41 37.4 106 20 98/65 97 Room Air Physical Exam VITALS: Vitals are noted on the nurse's note and reviewed by myself. Vital signs stable. GENERAL: This is a 26-year-old female, lying in bed, intermittently shaking. SKIN: The skin was without rashes, erythema, edema, or bruising. HEAD: Normocephalic atraumatic. EARS: External auditory canals clear, tympanic membranes pearly quigley without erythema or effusion bilaterally. EYES: Pupils equal round and reactive to light and accommodation. MOUTH: Mucous membranes moist. No lacerations or abrasions to the cheek or tongue. NECK: Supple without nuchal rigidity. No meningismus. HEART: Regular rate and rhythm without murmurs gallops or rubs. LUNGS: Clear to auscultation bilaterally without wheezes, rales or rhonchi. MUSCULOSKELETAL: Full range of motion throughout. NEURO: Patient initially responded intermittently by nodding yes or no. On later evaluation, the patient was responded appropriately to questions. Medical Decision & Procedures Laboratory Results 03/26/17 18:30 Red Blood Count 4.95, Mean Corpuscular Volume 84.8, Mean Corpuscular Hemoglobin 29.5, Mean Corpuscular Hemoglobin Concent 34.8, Mean Platelet Volume 9.4, Neutrophils (%) (Auto) 78.8, Lymphocytes (%) (Auto) 16.1, Monocytes (%) (Auto) 4.8, Eosinophils (%) (Auto) 0.1, Basophils (%) (Auto) 0.0, Neutrophils # (Auto) 9.73, Lymphocytes # (Auto) 1.98, Monocytes # (Auto) 0.59, Eosinophils # (Auto) 0.01, Basophils # (Auto) 0.00 03/26/17 18:30 Test 03/26/17 18:30 White Blood Count 12.33 K/uL (4.8-10.8) Red Blood Count 4.95 M/uL (4.2-5.4) Hemoglobin 14.6 g/dL (12.0-16.0) Hematocrit 42.0 % (37-47) Mean Corpuscular Volume 84.8 fL (80-100) Mean Corpuscular Hemoglobin 29.5 pg (25-34) Mean Corpuscular Hemoglobin Concent 34.8 g/dl (32-36) Platelet Count 221 K/uL (130-400) Mean Platelet Volume 9.4 fL (7.4-10.4) Neutrophils (%) (Auto) 78.8 % Lymphocytes (%) (Auto) 16.1 % Monocytes (%) (Auto) 4.8 % Eosinophils (%) (Auto) 0.1 % Basophils (%) (Auto) 0.0 % Neutrophils # (Auto) 9.73 K/uL (1.4-6.5) Lymphocytes # (Auto) 1.98 K/uL (1.2-3.4) Monocytes # (Auto) 0.59 K/uL (0.11-0.59) Eosinophils # (Auto) 0.01 K/uL (0-0.5) Basophils # (Auto) 0.00 K/uL (0-0.2) RDW Standard Deviation 39.1 fL (36.4-46.3) RDW Coefficient of Variation 12.7 % (11.5-14.5) Immature Granulocyte % (Auto) 0.2 % Immature Granulocyte # (Auto) 0.02 K/uL (0.00-0.02) Anion Gap 13.0 mmol/L (3-11) Est Creatinine Clear Calc Drug Dose 81.1 ml/min Estimated GFR () 80.8 Estimated GFR (Non- 69.7 BUN/Creatinine Ratio 10.3 (10-20) Calcium Level 9.5 mg/dl (8.5-10.1) Magnesium Level 2.0 mg/dl (1.8-2.4) Total Bilirubin 0.3 mg/dl (0.2-1) Aspartate Amino Transf (AST/SGOT) 22 U/L (15-37) Alanine Aminotransferase (ALT/SGPT) 42 U/L (12-78) Alkaline Phosphatase 103 U/L (45-117) Total Protein 7.0 gm/dl (6.4-8.2) Albumin 4.0 gm/dl (3.4-5.0) Globulin 3.0 gm/dl (2.5-4.0) Albumin/Globulin Ratio 1.3 (0.9-2) Human Chorionic Gonadotropin, Qual POS (NEG) Medications Administered Medications (Trade) Dose Ordered Sig/Geeta Route Start Time Stop Time Status Last Admin Dose Admin Lorazepam (Ativan Inj) 2 mg STK-MED ONCE .ROUTE 03/26/17 17:57 03/26/17 17:58 DC 03/26/17 18:08 1 MG Sodium Chloride 1,000 ml @ 999 mls/hr Q1H1M STAT IV 03/26/17 18:04 03/26/17 19:04 DC 03/26/17 18:09 999 MLS/HR Sodium Chloride 1,000 ml @ 999 mls/hr Q1H1M STAT IV 03/26/17 19:20 03/26/17 20:20 DC 03/26/17 19:27 999 MLS/HR Diphenhydramine HCl (Benadryl Inj) 25 mg NOW STAT IV 03/26/17 19:52 03/26/17 19:53 DC 03/26/17 19:59 25 MG Ketorolac Tromethamine (Toradol Inj) 30 mg NOW STAT IV 03/26/17 19:52 03/26/17 19:53 DC 03/26/17 20:01 30 MG Prochlorperazine Edisylate (Compazine Inj) 10 mg NOW STAT IV 03/26/17 19:52 03/26/17 19:53 DC 8/20/17 19:59 10 MG ED Course The patient was evaluated as above. Labs were drawn and IV access was obtained. Patient was medicated with 1 mg Ativan IV. Patient was reevaluated and is still shaking intermittently. There is no obvious seizure activity. Per the patient's , she is complaining of a headache. He reports that a "migraine cocktail" typically works for the patient. Patient was given Benadryl, Compazine and Toradol with some relief of her headache. She was reevaluated and is now responding appropriately. Discharge instructions were reviewed with the patient. The patient verbalized understanding of my assessment and treatment plan and was discharged home in good condition. Medical Decision Differential diagnosis includes seizure, pseudoseizure, head injury, among others. The patient is a 26-year-old female who presents for evaluation of seizure-like activity. On my initial evaluation, the patient had intermittent shaking. Throughout her stay, she began shaking randomly and would stop without treatment. The patient has had multiple workups for these symptoms and has not had a clear diagnosis. There was no true seizure-like activity. The patient did not respond much to me initially, but after a stay in the emergency department and treatment of her headache, she was alert and oriented and able to answer all questions appropriately. She did hit her head at ground-level treatment one of her episodes, but we discussed risks/benefits of performing CT scan and agreed this was not necessary at this time. Patient was encouraged to follow-up with her primary care provider and neurologist for further evaluation of ongoing symptoms. She and her verbalize understanding of my assessment and treatment plan and she was discharged home in good condition. The patient's case was reviewed with Dr. Johnson, ED attending physician, who agreed with my assessment and treatment plan. Medication Reconcilliation Current Medication List: was personally reviewed by me Blood Pressure Screening Patient's blood pressure: Low blood pressure (pt's blood pressure is typically low) Impression Primary Impression: Seizure-like activity Departure Information Dispostion Home / Self-Care Condition GOOD Referrals Hoa Moeller D.O. (PCP) Patient Instructions My [facility] Additional Instructions Follow-up with the primary care provider this week for a recheck. Rest and stay well hydrated. Return to the emergency department with any worsening or new/concerning symptoms.
[2017-03-26 20:53] VITALS: BP 117/52; PULSE 71; O2SAT 96
[2017-03-27] MEDS ORDERED: TRAZ50TA35 PO (14:13)
[2017-03-27] MEDS ORDERED: MELO7.5T5 PO (15:39)
[2017-03-27] MEDS ORDERED: PROG100C6 PV (19:41)
[2017-03-27] MEDS ORDERED: GABA1CAP4 PO (20:25)
[2017-03-27] MEDS ORDERED: TOPI200T20 PO (22:35)
[2017-05-09] MEDS ORDERED: BUPRTAB PO (02:07)
[2017-05-09] MEDS ORDERED: PROC1TAB5 PO (10:51)
[2017-05-09] MEDS ORDERED: PRZ1 PO (10:52)
[2017-05-09] MEDS ORDERED: FLUT1INH7 INH (13:03)
[2017-05-09] MEDS ORDERED: CLR10 PO (13:07)
[2017-05-09] MEDS ORDERED: DIPH25CA65 PO (13:13)
[2017-05-09] MEDS ORDERED: SUMA100T16 PO (14:12)
== END 2017-03-26 21:03 | disposition home or self-care (01) ==
LOC: EDBD 17:41 → C.EDA 17:42
DX: R56.9 Unspecified convulsions (principal); F41.9 Anxiety disorder, unspecified; J45.909 Unspecified asthma, uncomplicated; F31.9 Bipolar disorder, unspecified; Z83.3 Family history of diabetes mellitus; Z82.49 Family history of ischemic heart disease and other diseases of the circulatory system

== ENCOUNTER 2017-03-27 15:19 | Emergency (ER) | payer OTHER ==
[~2017-03-27] VITALS: Ht 165.1 cm; Wt 83.2 kg
[~2017-03-27 15:19] MED LIST changes: -ALBU4TAB5 PO; -CIPR-255 PO; +TRAZ50TA35 PO
[2017-03-27] MEDS ORDERED: LORAZEPAM 2 MG/ML 1 ML VIAL ONE (15:26)
[2017-03-27] MEDS ORDERED: SODIUM CHLORIDE 0.9% 1000ML 1,000 ML IV STA (15:32)
[2017-03-27 15:37] VITALS: TEMP 37.3; Ht 165.1 cm; Wt 83.2 kg
[2017-03-27] MEDS ORDERED: MELO7.5T5 PO (15:39)
[2017-03-27 16:22] LABS: BASO % 0.1 %; BASO ABS # 0.01 K/uL (0-0.2); COMPLETE YES; EOS % 0.9 %; HEMATOCRIT 38.9 % (37-47); IG% 0.3 %; LYMPH % 32.5 %; MEAN CELL VOLUME 84.9 fL (80-100); MEAN CORPUSCULAR HEMOGLOBIN 29.9 pg (25-34); MEAN CORPUSCULAR HGB CONC 35.2 g/dl (32-36); MEAN PLATELET VOLUME 9.5 fL (7.4-10.4); MONO % 5.2 %; PLATELET COUNT 175 K/uL (130-400); RED BLOOD COUNT 4.58 M/uL (4.2-5.4); WHITE BLOOD COUNT 8.92 K/uL (4.8-10.8)
[2017-03-27 16:31] LABS: PROTHROMBIN TIME (PATIENT) 10.3 SECONDS (9.0-12.0)
[2017-03-27 16:41] LABS: PREG INTERNAL NEGATIVE QC NEG CLEAR BACKGROUND; PREG INTERNAL POSITIVE QC POS CONTROL LINE
[2017-03-27 16:53] LABS: CREATININE 0.91 mg/dl (0.60-1.20)
[2017-03-27 16:54] LABS: BUN/CREATININE RATIO 10.1 (10-20); CALCIUM 8.1 mg/dl (8.5-10.1); PHOSPHORUS 2.1 mg/dl (2.5-4.9); THYROID STIMULATING HORMONE 1.8 uIu/ml (0.300-4.500)
[2017-03-27 16:58] LABS: POTASSIUM 3.2 mmol/L (3.5-5.1)
[2017-03-27 16:59] LABS: MAGNESIUM 1.9 mg/dl (1.8-2.4)
--- NOTE | 2017-03-27 17:25 | DIAGNOSTIC IMAGING REPORT ---
CT SCAN OF THE BRAIN WITHOUT IV CONTRAST CLINICAL HISTORY: Fall with head injury. COMPARISON STUDY: CT of the brain dated 07/17/2016. TECHNIQUE: Unenhanced axial CT scan of the brain is performed from the vertex to the skull base. Automated dose control exposure was utilized. A dose lowering technique was utilized adhering to the principles of ALARA. CT DOSE: 537.48 mGy.cm FINDINGS: Brain parenchyma: The brain parenchyma is normal in appearance. There is no hemorrhage, mass effect, or evidence of acute territorial ischemia by CT criteria. Cordero-white matter is preserved. No extra-axial fluid collection is seen. Ventricles, sulci, cisterns: Normal in configuration. Intracranial vasculature: The visualized intracranial vasculature at the skull base is normal in appearance. Calvarium: There is no depressed calvarial fracture. Sinuses and mastoids: Trace mucosal thickening is seen in the ethmoid sinuses. The remaining visualized paranasal sinuses are clear. The mastoid air cells are well pneumatized. Orbits: The bony orbits are grossly intact. IMPRESSION: No acute intracranial abnormality. Electronically signed by: Damien Henson M.D. 03/27/2017 5:23 PM Dictated Date/Time: 03/27/2017 5:21 PM
[2017-03-27 17:56] LABS: URINE APPEARANCE CLEAR (CLEAR); URINE BILIRUBIN NEG (NEG); URINE COLOR YELLOW; URINE NITRITE NEG (NEG); URINE PH 6.5 (4.5-7.5); UROBILINOGEN NEG (NEG)
[2017-03-27 18:00] LABS: MANUAL MICROSCOPIC REQUIRED? NO; REVIEW REQ? NO
[2017-03-27 19:30] VITALS: BP 122/58; PULSE 67; O2SAT 99
[2017-03-27] MEDS ORDERED: PROG100C6 PV (19:41)
[2017-03-27] MEDS ORDERED: POTASSIUM CHLORIDE 10 MEQ TABCR PO STA (19:45)
[2017-03-27] MEDS ORDERED: POTASSIUM CHLORIDE 10 MEQ TABCR ONE (19:46)
[2017-03-27] MEDS ORDERED: GABA1CAP4 PO (20:25)
--- NOTE | 2017-03-27 21:01 | EMERGENCY ROOM VISIT NOTE ---
History Report prepared by Vee: Sergio Akbar Under the Supervision of: Dr. Mario Ruff M.D. First contact with patient: 15:24 Stated Complaint: SEIZURE History of Present Illness The patient is a 26 year old female who presents to the Emergency Room by EMS with complaints of intermittent episodes of generalized seizure-like activity beginning shortly prior to arrival. Per nursing staff, the patient was given Ativan and Zofran en route. She was seen in the ED yesterday for similar symptoms. The patient currently complains of a headache, nausea and dizziness. She states that she hit her head yesterday, and fell and hit her head again twice today. She states that the first fall today was from standing height, and the second was off of her bed due to her seizure-like activity. The patient is on Neurontin, but states that she only takes it twice a day when she is supposed to take it three times per day. Pt denies fevers, chills, diaphoresis, visual changes, neck pain, chest pain, breathing difficulties, vomiting, abdominal pain, back pain, melena, hematochezia, urinary symptoms, numbness, weakness, lymphadenopathy, rash, or other complaints. Source of History: patient Onset: Shortly prior to arrival Position: other (generalized) Quality: other (seizure-like activity) Timing: intermittent, other (episodes) Associated Symptoms: + headache, + nausea Note: Additional symptoms: dizziness. Review of Systems See HPI for pertinent positives and negatives. A total of ten systems were reviewed and were otherwise negative. 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 (26) Right ovarian cyst (27) Right ovarian cyst (28) Rupture of ovarian cyst (29) Seizure-like activity (30) Suicidal ideation (31) Syncope (32) Syncope (33) Vaginal discharge (34) Wrist sprain Surgical Problems: (1) History of colonoscopy Social History Problems: (1) Contusion of multiple sites Family History Cancer Diabetes mellitus Endometriosis MOTHER Heart disease Hypertrophic cardiomyopathy FATHER aunt Kidney disease Kidney stones Lung disease PCOS SISTER Social History Smoking Status: Unknown if Ever Smoked Alcohol Use: none Drug Use: none Marital Status: Housing Status: lives with family Occupation Status: unemployed Current/Historical Medications Scheduled Bupropion Hcl (Wellbutrin Xl), 150 MG PO QAM Fexofenadine Hcl (Shanell Allergy), 180 MG PO BID Fluticasone Furoate-Vilanterol (Breo Ellipta 200-25 Mcg/INH), 1 PUFF INH DAILY Gabapentin (Gabapentin), 600 MG PO TID Methylprednisolone (Medrol Dosepak), 1 PKT PO UD Midodrine Hcl (Midodrine Hcl), 10 MG PO QID Montelukast Sod (Montelukast Sodium), 10 MG PO BID Pantoprazole (Protonix), 40 MG PO DAILY Prazosin HCl (Prazosin HCl), 1 MG PO HS Progesterone (Prometrium), 100 MG PV UD Ranitidine Hcl (Zantac), 300 MG PO BID Topiramate (Topamax), 200 MG PO BID Scheduled PRN Albuterol Hfa (Ventolin Hfa), 2 PUFFS INH Q4-6HRS PRN for Wheezing Albuterol Sulf (Proventil 0.083% 2.5MG/3ML), 3 ML NEB QID PRN for SOB/Wheezing Uqdsuavjhh-Clkxczljubkzw-Naken (Fioricet), 2 CAP PO UD PRN for Headache Cromolyn Sodium (Mastocytosis) (Cromolyn Sodium), 10 ML PO QID PRN for Flares Diclofenac (Voltaren), 50 MG PO TID PRN for Pain Diphenhydramine Hcl (Benadryl Allergy), 25-75 MG PO UD PRN for ALLERGIC REACTION Epinephrine (Epipen), 0.3 MG IM UD PRN for ALLERGIC REACTION Loratadine (Claritin), 10 MG PO DAILY PRN for Allergy Symptoms Lorazepam (Lorazepam), 1 MG PO Q6H PRN for Anxiety Meloxicam (Mobic), 15 MG PO DAILY PRN for Migraine Prochlorperazine Maleate (Compazine), 10 MG PO QID PRN for Nausea Sumatriptan Succinate (Imitrex), 100 MG PO UD PRN for Headache Sumatriptan Succinate (Imitrex Statdose), 6 MG IM UD PRN for Headache Trazodone Hcl (Trazodone), 50 MG PO HS PRN for Sleep Allergies Coded Allergies: Cetirizine (Verified Allergy, Severe, anapyhylaxis, 03/25/17) Hydroxyzine (Verified Allergy, Severe, anaphylaxis, 03/25/17) Quercetin (Verified Allergy, Severe, ANAPHYLAXIS, 03/25/17) Ziprasidone (Verified Allergy, Severe, Anaphylaxis, 03/25/17) Reported by PT Aripiprazole (Verified Allergy, Intermediate, ., 03/25/17) BEE STING (Verified Allergy, Intermediate, anaphylaxis, 03/25/17) Lurasidone (Verified Allergy, Intermediate, ., 03/25/17) Cefaclor (Verified Allergy, Mild, ANAPHYLAXIS, 03/25/17) CI Pigment Blue 63 (Verified Allergy, Unknown, ANAPHYLAXIS, 03/25/17) Clonazepam (Verified Allergy, Unknown, anaphylaxis, 03/25/17) Dexlansoprazole (Verified Allergy, Unknown, ANAPHYLAXIS, 03/25/17) Doxycycline (Verified Allergy, Unknown, UNKNOWN, 03/25/17) Iodinated Diagnostic Agents (Verified Allergy, Unknown, ANAPHYLAXIS, ) must have pretreats, Red Dye (Verified Allergy, Unknown, ANAPHYLAXIS, 03/25/17) Uncoded Nonscreenable Allergen (Verified Allergy, Unknown, ETHLYENEDIAMINE DIHYDROCHLORIDE- A PIG[employer]ER GENERIC DRUGS, 03/25/17) ETHLYENEDIAMINE DIHYDROCHLORIDE- A PIG[employer] FEET [employer]ER GENERIC DRUGS: CAUSES ANAPHYLAXIS Physical Exam Vital Signs Date Time Temp Pulse Resp B/P (MAP) Pulse Ox O2 Delivery O2 Flow Rate FiO2 03/27/17 19:30 67 18 122/58 99 Room Air 03/27/17 18:00 71 20 132/66 99 Room Air 03/27/17 16:14 123 29 128/79 96 Room Air 03/27/17 16:01 71 19 128/79 98 Room Air 03/27/17 15:37 37.3 71 13 124/92 98 03/27/17 15:37 37.3 71 13 124/92 98 Room Air 03/27/17 15:37 Room Air 03/27/17 15:34 73 Physical Exam GENERAL: Actively shaking in a rhythmic fashion. Initially unresponsive due to shaking, but began to follow commands and answer questions within less than two minutes of the episode. HENT: Normocephalic, atraumatic. Oropharynx unremarkable. EYES: Normal conjunctiva. Sclera non-icteric. NECK: Supple. No nuchal rigidity. FROM. No JVD. RESPIRATORY: Clear to auscultation. CARDIAC: Borderline tachycardic rate, normal rhythm. Extremities warm and well perfused. Pulses equal. ABDOMEN: Soft, non-distended. No tenderness to palpation. No rebound or guarding. No masses. RECTAL: Deferred. MUSCULOSKELETAL: Chest examination reveals no tenderness. The back is symmetrical on inspection without obvious abnormality. There is no CVA tenderness to palpation. No joint edema. LOWER EXTREMITIES: Calves are equal size bilaterally and non-tender. No edema. No discoloration. NEURO: Normal sensorium. No sensory or motor deficits noted. SKIN: No rash or jaundice noted. Medical Decision & Procedures ER Provider Diagnostic Interpretation: CT: Radiology results as stated below per my review and radiologist interpretation CT SCAN OF THE BRAIN WITHOUT IV CONTRAST FINDINGS: Brain parenchyma: The brain parenchyma is normal in appearance. There is no hemorrhage, mass effect, or evidence of acute territorial ischemia by CT criteria. Cordero-white matter is preserved. No extra-axial fluid collection is seen. Ventricles, sulci, cisterns: Normal in configuration. Intracranial vasculature: The visualized intracranial vasculature at the skull base is normal in appearance. Calvarium: There is no depressed calvarial fracture. Sinuses and mastoids: Trace mucosal thickening is seen in the ethmoid sinuses. The remaining visualized paranasal sinuses are clear. The mastoid air cells are well pneumatized. Orbits: The bony orbits are grossly intact. IMPRESSION: No acute intracranial abnormality. Laboratory Results 03/27/17 16:10 Red Blood Count 4.58, Mean Corpuscular Volume 84.9, Mean Corpuscular Hemoglobin 29.9, Mean Corpuscular Hemoglobin Concent 35.2, Mean Platelet Volume 9.5, Neutrophils (%) (Auto) 61.0, Lymphocytes (%) (Auto) 32.5, Monocytes (%) (Auto) 5.2, Eosinophils (%) (Auto) 0.9, Basophils (%) (Auto) 0.1, Neutrophils # (Auto) 5.44, Lymphocytes # (Auto) 2.90, Monocytes # (Auto) 0.46, Eosinophils # (Auto) 0.08, Basophils # (Auto) 0.01 03/27/17 16:09 Test 03/27/17 16:09 03/27/17 16:10 03/27/17 17:45 Prothrombin Time 10.3 SECONDS (9.0-12.0) Prothromb Time International Ratio 1.0 (0.9-1.1) Activated Partial Thromboplast Time 26.4 SECONDS (21.0-31.0) Partial Thromboplastin Ratio 1.0 Anion Gap 8.0 mmol/L (3-11) Est Creatinine Clear Calc Drug Dose 100.7 ml/min Estimated GFR () 101.6 Estimated GFR (Non- 87.7 BUN/Creatinine Ratio 10.1 (10-20) Calcium Level 8.1 mg/dl (8.5-10.1) Phosphorus Level 2.1 mg/dl (2.5-4.9) Magnesium Level 1.9 mg/dl (1.8-2.4) Thyroid Stimulating Hormone (TSH) 1.800 uIu/ml (0.300-4.500) Human Chorionic Gonadotropin, Qual POS (NEG) Human Chorionic Gonadotropin, Quant 21 mIU/mL White Blood Count 8.92 K/uL (4.8-10.8) Red Blood Count 4.58 M/uL (4.2-5.4) Hemoglobin 13.7 g/dL (12.0-16.0) Hematocrit 38.9 % (37-47) Mean Corpuscular Volume 84.9 fL (80-100) Mean Corpuscular Hemoglobin 29.9 pg (25-34) Mean Corpuscular Hemoglobin Concent 35.2 g/dl (32-36) Platelet Count 175 K/uL (130-400) Mean Platelet Volume 9.5 fL (7.4-10.4) Neutrophils (%) (Auto) 61.0 % Lymphocytes (%) (Auto) 32.5 % Monocytes (%) (Auto) 5.2 % Eosinophils (%) (Auto) 0.9 % Basophils (%) (Auto) 0.1 % Neutrophils # (Auto) 5.44 K/uL (1.4-6.5) Lymphocytes # (Auto) 2.90 K/uL (1.2-3.4) Monocytes # (Auto) 0.46 K/uL (0.11-0.59) Eosinophils # (Auto) 0.08 K/uL (0-0.5) Basophils # (Auto) 0.01 K/uL (0-0.2) RDW Standard Deviation 39.9 fL (36.4-46.3) RDW Coefficient of Variation 13.0 % (11.5-14.5) Immature Granulocyte % (Auto) 0.3 % Immature Granulocyte # (Auto) 0.03 K/uL (0.00-0.02) Urine Color YELLOW Urine Appearance CLEAR (CLEAR) Urine pH 6.5 (4.5-7.5) Urine Specific [place] 1.010 (1.000-1.030) Urine Protein NEG (NEG) Urine Glucose (UA) NEG (NEG) Urine Ketones NEG (NEG) Urine Occult Blood NEG (NEG) Urine Nitrite NEG (NEG) Urine Bilirubin NEG (NEG) Urine Urobilinogen NEG (NEG) Urine Leukocyte Esterase NEG (NEG) Laboratory results reviewed by me Medications Administered Medications (Trade) Dose Ordered Sig/Geeta Route Start Time Stop Time Status Last Admin Dose Admin Sodium Chloride 1,000 ml @ 999 mls/hr Q1H1M STAT IV 03/27/17 15:32 03/27/17 16:32 DC 03/27/17 15:32 999 MLS/HR Potassium Chloride (Klor-Con M10) 20 meq NOW STAT PO 03/27/17 19:45 03/27/17 19:46 DC 03/27/17 19:48 20 MEQ ECG Indication: other (seizure-like activity) Rate (beats per minute): 69 Rhythm: normal sinus Findings: PAC, no acute ischemic change ED Course 1525: The patient was evaluated in room B2. A complete history and physical exam was performed. 1526: Ordered Ativan 2 mg IV. This was held. 1532: Ordered Sodium Chloride 1000 ml @ 999 mls/hr IV. 1618: The patient had an episode of seizure-like activity, and I was called into the room. I told her to relax, and her symptoms spontaneously improved upon me telling her that she may be . 1803: I updated the patient on her CT results. 1925: I reevaluated the patient. Discussed results and discharge instructions: she verbalized understanding and agreement. The patient is ready for discharge. Medical Decision Triage Nursing notes reviewed. The patient's presentation and history were concerning for seizure-like activity. Etiologies such as seizure, pseudoseizure, vasovagal event, infection, hypoglycemia, electrolyte abnormalities, cardiac sources, intracerebral event, toxicologic, neurologic, as well as others were entertained. The patient was evaluated. She had several episodes of seizure-like activity and fell and struck her head. She had no neck or extremity injury. She denied any chest or back complaints. The patient was given Ativan I EMS because of seizure-like activity. Upon arrival to the emergency department the patient had another episode. This seemed to resolve with verbal direction from me. The patient had no postictal period. She was not incontinent and did not bite her tongue. I discussed the workup and imaging with her. She noted a headache and was very concerned about injury since she struck her head several times from falling. CT imaging was negative. She was shielded for this. She had another brief episode that stopped spontaneously. Ativan was initially ordered but held as the patient was found to have a positive hCG. The patient and her were notified of this. The patient had an episode just prior to me walking in the room and was still shaking. I gave her verbal direction to relax and told her that she was and she sat right up and said "well, that will wake me up". The patient had no further shaking episodes after this. She noted that she was told by her STACKER in the past that if she is again because of prior miscarriages she needs to be immediately started on progesterone suppositories. I did discuss the case with STACKER, Dr. White and she felt that this was not strongly supported in the literature but the patient had a strong conviction about this he would not be unreasonable to give her a dose of Prometrium 100 mg vaginally and have her follow-up with her primary tomorrow. I initially ordered an ultrasound based upon her positive hCG but this was canceled in order to expedite the patient to the pharmacy as we do not have Prometrium available here. The patient felt very comfortable with this. She has no vaginal bleeding she has no pelvic pain. Her hCG is so low that the is likely in its first week. She will need to discuss her medications that she currently takes with her primary physician. I gave my usual and customary discussion regarding this issue. By the evaluation outlined above other emergent etiologies such as those listed in the differential, as well as others, were deemed relatively unlikely. The patient was educated about the findings as listed above. All questions were answered and the patient was pleased with the treatment. Return instructions were outlined and the patient was discharged in stable condition. The patient was referred to her PCP tomorrow for follow-up for a recheck of the current condition. Medication Reconcilliation Current Medication List: was personally reviewed by me Blood Pressure Screening Patient's blood pressure: Elevated blood pressure Blood pressure disposition: Elevated BP felt to be situational Consults Time Called: 1744 Consulting Physician: Dr. Padilla's PA -Primary Care Returned Call: 1750 Discussed the patient's case with Dr. Padilla's PALidia. She states that she knows the patient, but is not familiar with the detailed care because of her complex history. She was not aware of any issues regarding progesterone levels with her . The patient is scheduled to follow up tomorrow in the office. Additional Consults: Time Called: 1849 Consulted Physician: Dr. White -[facility] Returned Call: 1852 Additional Comments: Discussed the patient's case. Dr. White states that there is little proven benefit for maintainable, however if the patient feels strongly, she can have 100 mg of Prometrium vaginally and follow up with her primary provider. Impression Primary Impression: Seizure-like activity Additional Impression: First trimester Scribe Attestation The scribe's documentation has been prepared under my direction and personally reviewed by me in its entirety. I confirm that the note above accurately reflects all work, treatment, procedures, and medical decision making performed by me. Departure Information Dispostion Home / Self-Care Prescriptions Progesterone (Prometrium) 100 Mg Cap 100 MG PV UD, #1 CAP Prov: Mario Ruff MD 03/27/17 Referrals Hoa Padilla D.O. (PCP) Forms HOME CARE DOCUMENTATION FORM, IMPORTANT VISIT INFORMATION Additional Instructions Prometrium capsule 100 mg: Place one in your vagina tonight as directed. Tylenol: Take 1000 mg every 6 hours as needed for pain. Do not take more than 3000 mg in a 24 hour period. Rest and drink plenty of fluids. Return to the ER for headache, passing out, difficulty breathing, fevers, numbness, tingling, worsening of your condition, or as needed. Follow-up with your primary doctor as scheduled tomorrow. Discussed OB referral. Discussed additional Prometrium or similar medication. Problem Qualifiers
[2017-03-27] MEDS ORDERED: TOPI200T20 PO (22:35)
[2017-05-09] MEDS ORDERED: BUPRTAB PO (02:07)
[2017-05-09] MEDS ORDERED: PROC1TAB5 PO (10:51)
[2017-05-09] MEDS ORDERED: PRZ1 PO (10:52)
[2017-05-09] MEDS ORDERED: FLUT1INH7 INH (13:03)
[2017-05-09] MEDS ORDERED: CLR10 PO (13:07)
[2017-05-09] MEDS ORDERED: DIPH25CA65 PO (13:13)
[2017-05-09] MEDS ORDERED: SUMA100T16 PO (14:12)
== END 2017-03-27 20:02 | disposition home or self-care (01) ==
LOC: EDBD 15:19 → C.EDB 15:20
DX: O26.891 Other specified pregnancy related conditions, first trimester (principal); R56.9 Unspecified convulsions; F41.9 Anxiety disorder, unspecified; J45.909 Unspecified asthma, uncomplicated; F31.9 Bipolar disorder, unspecified; K58.9 Irritable bowel syndrome, unspecified; N83.201 Unspecified ovarian cyst, right side; K80.20 Calculus of gallbladder without cholecystitis without obstruction; Z87.828 Personal history of other (healed) physical injury and trauma; Z91.81 History of falling; Z98.890 Other specified postprocedural states; Z79.899 Other long term (current) drug therapy; Z88.8 Allergy status to other drugs, medicaments and biological substances; Z91.030 Bee allergy status; Z91.041 Radiographic dye allergy status; Z80.9 Family history of malignant neoplasm, unspecified; Z83.3 Family history of diabetes mellitus; Z82.49 Family history of ischemic heart disease and other diseases of the circulatory system; Z84.1 Family history of disorders of kidney and ureter

== ENCOUNTER 2017-04-24 22:11 | Emergency (ER) | payer OTHER ==
[~2017-04-24] VITALS: Ht 165.1 cm; Wt 79.7 kg
[~2017-04-24 22:11] MED LIST changes: -EPP3/2 IM; +GABA1CAP4 PO; +MELO7.5T5 PO; -METH4PAK PO; +PROG100C6 PV; +TOPI200T20 PO
[2017-04-24 22:18] VITALS: TEMP 36.6; Ht 165.1 cm; Wt 79.7 kg
[2017-04-24] MEDS ORDERED: RANITIDINE HCL 50 MG/100 ML D5W IV STA (22:27)
[2017-04-24] MEDS ORDERED: DiphenhydrAMINE HCL 50 MG/ML VIAL IV STA (22:27)
[2017-04-24] MEDS ORDERED: DEXAMETHASONE SOD INJ 10 MG/ML VIAL IV ONE (22:30)
[2017-04-24] MEDS ORDERED: METHYLPREDNISOLONE 125 MG VIAL IV STA (22:31)
[2017-04-24] MEDS ORDERED: ONDANSETRON INJ 2 MG/ML 2 ML VIAL IV STA (22:57)
[2017-04-24] MEDS ORDERED: SODIUM CHLORIDE 0.9% 1000ML 1,000 ML IV STA (22:57)
[2017-04-24 23:07] VITALS: O2SAT 98
[2017-04-24] MEDS ORDERED: PROG100C6 PO (23:25)
[2017-04-24] MEDS ORDERED: EPP3/2 IM (23:50)
[2017-04-24] MEDS ORDERED: PRED50TA PO (23:50)
--- NOTE | 2017-04-24 23:56 | EMERGENCY ROOM VISIT NOTE ---
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 It started a couple days ago. Then today pt with chest pain and SOB. Pt felt she was having allergic reaction and administered her Epipen at 7pm. Pt still does not feel well. History of Present Illness The patient is a 26 year old female who presents to the Emergency Room with complaints of allergic reaction. 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 Patient states normally with allergic reactions to get itchy all over with tightness in her chest and dyspnea. Patient states after taking her EpiPen most of her symptoms have resolved but still feels itchy. Patient denies current chest pain, dyspnea , headache, neck stiffness, sore throat, abdominal pain, vomiting, diarrhea. She complains of urinary symptoms and is requesting a urine check. Patient is well-known to this ER for frequent visits. Review of Systems See HPI for pertinent positives & negatives. A total of 10 systems reviewed and were otherwise negative. 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 (26) Right ovarian cyst (27) Right ovarian cyst (28) Rupture of ovarian cyst (29) Seizure-like activity (30) Suicidal ideation (31) Syncope (32) Syncope (33) Vaginal discharge (34) Wrist sprain Surgical Problems: (1) History of colonoscopy Social History Problems: (1) Contusion of multiple sites Family History Cancer Diabetes mellitus Endometriosis MOTHER Heart disease Hypertrophic cardiomyopathy FATHER aunt Kidney disease Kidney stones Lung disease PCOS SISTER Social History Smoking Status: Former Smoker Alcohol Use: none Drug Use: none Marital Status: Housing Status: lives with family Occupation Status: unemployed Current/Historical Medications Scheduled Bupropion Hcl (Wellbutrin Xl), 150 MG PO QAM Epinephrine (Epipen 2-Layton), 1 DOSE IM DIRECTED Fexofenadine Hcl (Shanell Allergy), 180 MG PO BID Fluticasone Furoate-Vilanterol (Breo Ellipta 200-25 Mcg/INH), 1 PUFF INH DAILY Midodrine Hcl (Midodrine Hcl), 10 MG PO QID Montelukast Sod (Montelukast Sodium), 10 MG PO BID Pantoprazole (Protonix), 40 MG PO DAILY Prazosin HCl (Prazosin HCl), 1 MG PO HS Prednisone (Prednisone), 50 MG PO DAILY Progesterone (Prometrium), 100 MG PO DIRECTED Ranitidine Hcl (Zantac), 300 MG PO BID Topiramate (Topamax), 100 MG PO BID Scheduled PRN Albuterol Hfa (Ventolin Hfa), 2 PUFFS INH Q4-6HRS PRN for Wheezing Albuterol Sulf (Proventil 0.083% 2.5MG/3ML), 3 ML NEB QID PRN for SOB/Wheezing Ldqokrgrqo-Apsxipienruyk-Dlwjv (Fioricet), 2 CAP PO UD PRN for Headache Cromolyn Sodium (Mastocytosis) (Cromolyn Sodium), 10 ML PO QID PRN for Flares Diclofenac (Voltaren), 50 MG PO TID PRN for Pain Diphenhydramine Hcl (Benadryl Allergy), 25-75 MG PO UD PRN for ALLERGIC REACTION Epinephrine (Epipen), 0.3 MG IM UD PRN for ALLERGIC REACTION Loratadine (Claritin), 10 MG PO DAILY PRN for Allergy Symptoms Lorazepam (Lorazepam), 1 MG PO Q6H PRN for Anxiety Ondansetron Hcl (Zofran), 4 MG PO Q6H PRN for Nausea Prochlorperazine Maleate (Compazine), 10 MG PO QID PRN for Nausea Sumatriptan Succinate (Imitrex), 100 MG PO UD PRN for Headache Sumatriptan Succinate (Imitrex Statdose), 6 MG IM UD PRN for Headache Trazodone HCl (Trazodone HCl), 75 MG PO HS PRN for Sleep Physical Exam Vital Signs Date Time Temp Pulse Resp B/P (MAP) Pulse Ox O2 Delivery O2 Flow Rate FiO2 04/24/17 23:11 84 04/24/17 23:08 88 20 127/54 98 Room Air 04/24/17 23:07 98 Room Air 04/24/17 22:46 Room Air 04/24/17 22:18 36.6 104 20 128/76 100 Room Air Physical Exam VITALS: Vitals are noted on the nurse's note and reviewed by myself. Vital signs stable. GENERAL: White female, in no acute distress, nondiaphoretic, well-developed well -nourished. SKIN: The skin was without rashes, erythema, edema, or bruising. There is no tenting of the skin. Capillary reflex less than 2 seconds. HEAD: Normocephalic atraumatic. EARS: External auditory canals clear, tympanic membranes pearly quigley without erythema or effusion bilaterally. EYES: Pupils equal round and reactive to light and accommodation. Conjunctivae without injection, sclerae without icterus. Extraocular movements intact. NOSE: Patent, turbinates without inflammation or discharge. No sinus tenderness. MOUTH: Mucous membranes moist. Pharynx without erythema or exudate. Uvula midline. Airway patent. Tongue does not deviate. NECK: Supple without nuchal rigidity. No lymphadenopathy. No thyromegaly. Cervical spine is nontender. No JVD. HEART: Regular rate and rhythm without murmurs gallops or rubs. LUNGS: Clear to auscultation bilaterally without wheezes, rales or rhonchi. No dullness to percussion. No retractions or accessory muscle use. ABDOMEN: Positive bowel sounds x 4. Normal tympanic percussion. Soft, nontender, without masses or organomegaly. Dueñas sign negative. No guarding or rebound tenderness. MUSCULOSKELETAL: No muscle atrophy, erythema, or edema noted. NEURO: Patient was alert and oriented to person place and time. Normal sensation to light and sharp touch. No focal neurological deficits. Medical Decision & Procedures Laboratory Results Test 04/24/17 22:27 Medications Administered Medications (Trade) Dose Ordered Sig/Geeta Route Start Time Stop Time Status Last Admin Dose Admin Ranitidine HCl (zANTac IV) 50 mg NOW STAT IV 04/24/17 22:27 04/24/17 22:29 DC 04/24/17 23:04 50 MG Diphenhydramine HCl (Benadryl Inj) 50 mg NOW STAT IV 04/24/17 22:27 04/24/17 22:30 DC 04/24/17 23:05 50 MG Methylprednisolone Sodium Succinate (Solu-Medrol IV) 125 mg NOW STAT IV 04/24/17 22:31 04/24/17 22:32 DC 04/24/17 23:04 125 MG Ondansetron HCl (Zofran Inj) 4 mg NOW STAT IV 04/24/17 22:57 04/24/17 22:59 DC 04/24/17 23:04 4 MG Sodium Chloride 1,000 ml @ 999 mls/hr Q1H1M STAT IV 04/24/17 22:57 04/24/17 23:57 04/24/17 23:05 999 MLS/HR ED Course Prior records/ancillary studies reviewed. Triage Nursing notes reviewed. Additional history obtained from family. The patient's history was concerning for possible allergic reaction. Differential diagnosis: Etiologies such as allergic reaction, anaphylaxis, urticaria, Ruelas-Quoc syndrome, toxic epidermal necrolysis, erythema multiforme, cellulitis, as well as others were entertained. Physical examination: As above. ER treatment provided: Continuous cardiac monitoring Benadryl 50 mg IV Zantac 50 mg IV Solu-medrol 125mg IV On reassessment the patient felt better. Diagnostic interpretation by me: Deferred It appears the patient had an allergic reaction. The above treatment did well to reverse the symptoms. After prolonged monitoring and frequent reassessments the patient did very well and symptoms resolved. The patient was counseled on the spectrum of this disease process and told to avoid potential triggers. I gave my usual and customary discussion regarding this issue. By the evaluation outlined above emergent etiologies such as recurring anaphylaxis, anaphylatic shock, airway compromise, Ruelas-Quoc syndrome, toxic epidermal necrolysis, erythema multiforme, infectious etiologies, as well as others were deemed relatively unlikely. The pt informed about the findings as listed above. All questions were answered and pleased with the treatment. Return instructions were outlined and the patient was discharged in stable condition. Outpatient prescription management: EpiPen prednisone Referral: The patient was referred back to primary care physician for follow-up in 2-3 days for a recheck of the current condition. and The patient was referred to Allergy/Immunology for further evaluation. Medical Decision As above Medication Reconcilliation Current Medication List: was personally reviewed by me Blood Pressure Screening Patient's blood pressure: Normal blood pressure Impression Primary Impression: Allergic reaction Departure Information Dispostion Home / Self-Care Condition GOOD Prescriptions Epinephrine (EPIPEN 2-LAYTON) 0.3 Mg Inj 1 DOSE IM DIRECTED, #1 PKT Prov: Ruby Kumari .JERRY 04/24/17 Prednisone (Prednisone) 50 Mg Tab 50 MG PO DAILY for 4 Days, #4 TAB Prov: Ruby Kumari PA-C 04/24/17 Referrals Hoa Moeller D.O. (PCP) Forms HOME CARE DOCUMENTATION FORM, IMPORTANT VISIT INFORMATION Patient Instructions My [facility] Additional Instructions DO NOT drive, drink alcohol, operate machinery, or perform dangerous activities today. You were given medications in the ER that can affect your ability to safely function or operate a vehicle. Epi-Pen: Use one injection as instructed for severe allergic reactions associated with shortness of breath, difficulty breathing, or throat or tongue swelling. If you use this injection call 911 or proceed immediately to the nearest Emergency Room. Prednisone 50mg: Once daily until the prescription is finished. It is best to take this earlier in the day as some patients note occasional difficulty falling asleep when taken in the late evening. Diphenhydramine(Benadryl) 25mg: use 25 to 50 mg every six hours for swelling, itching, or hives. This medication is sedating and will cause drowsiness. Avoid alcohol, operating machinery or dangerous equipment, working on ladders or roofs, DRIVING, or situations where being under the influence may be dangerous. Zantac 75: Take two pills twice a day along with Benadryl as needed for swelling , itching, or hives. Most people know this for its affect on the stomach, but it also acts similar to, but less potent than Benadryl for allergic reactions. Both the Benadryl and the Zantac are available [id number]. Continue current medications. Return to the emergency department for worsening of your rash, swelling of your face, lips, tongue, or throat, difficulty breathing, vomiting, or as needed. Follow-up with your primary care physician in 2 to 3 days for a recheck of your current condition. Problem Qualifiers Primary Impression: Allergic reaction Encounter type: initial encounter Qualified Codes: T78.40XA - Allergy, unspecified, initial encounter
[2017-04-24 23:59] VITALS: BP 130/72; PULSE 80; O2SAT 98
[2017-04-25 00:36] LABS: URINE APPEARANCE CLOUDY (CLEAR); URINE BILIRUBIN NEG (NEG); URINE COLOR DK YELLOW; URINE NITRITE NEG (NEG); UROBILINOGEN NEG (NEG); ZZUR CULT IF INDIC CLEAN CATCH NO
[2017-04-25 00:56] LABS: MANUAL MICROSCOPIC REQUIRED? NO; REVIEW REQ? YES
[2017-05-09] MEDS ORDERED: BUPRTAB PO (02:07)
[2017-05-09] MEDS ORDERED: PROC1TAB5 PO (10:51)
[2017-05-09] MEDS ORDERED: PRZ1 PO (10:52)
[2017-05-09] MEDS ORDERED: FLUT1INH7 INH (13:03)
[2017-05-09] MEDS ORDERED: CLR10 PO (13:07)
[2017-05-09] MEDS ORDERED: DIPH25CA65 PO (13:13)
[2017-05-09] MEDS ORDERED: SUMA100T16 PO (14:12)
== END 2017-04-25 00:01 | disposition home or self-care (01) ==
LOC: C.EDB 22:12
DX: T78.40XA Allergy, unspecified, initial encounter (principal); X58.XXXA Exposure to other specified factors, initial encounter; F31.9 Bipolar disorder, unspecified; F41.9 Anxiety disorder, unspecified; K58.9 Irritable bowel syndrome, unspecified; N83.201 Unspecified ovarian cyst, right side; K80.10 Calculus of gallbladder with chronic cholecystitis without obstruction; Z91.81 History of falling; Z87.891 Personal history of nicotine dependence; Z87.828 Personal history of other (healed) physical injury and trauma; Z79.899 Other long term (current) drug therapy; Z80.9 Family history of malignant neoplasm, unspecified; Z83.3 Family history of diabetes mellitus; Z82.49 Family history of ischemic heart disease and other diseases of the circulatory system; Z84.1 Family history of disorders of kidney and ureter

== ENCOUNTER 2017-05-09 15:28 | Emergency (ER) | payer OTHER ==
[~2017-05-09 15:28] MED LIST changes: +BUPRTAB PO; +CLR10 PO; +DIPH25CA65 PO; +EPP3/2 IM; +FLUT1INH7 INH; -GABA1CAP4 PO; -MELO7.5T5 PO; +PROC1TAB5 PO; +PROG100C6 PO; -PROG100C6 PV; +PRZ1 PO; +SUMA100T16 PO; -TOPI200T20 PO; -TRAZ50TA35 PO
[2017-05-09 15:35] VITALS: TEMP 37; Ht 165.1 cm
[2017-05-09] MEDS ORDERED: BUTA1CAP17 PO (15:36)
[2017-05-09] MEDS ORDERED: VNTHFA/IN INH (15:59)
[2017-05-09] MEDS ORDERED: EPP3/2 IM ×2 (16:04→18:24)
[2017-05-09] MEDS ORDERED: MIDO10TA PO (16:14)
[2017-05-09] MEDS ORDERED: ACETAMINOPHEN 500 MG TAB PO STA (16:41)
[2017-05-09] MEDS ORDERED: METOCLOPRAMIDE HCL 10 MG TAB PO STA (16:41)
[2017-05-09] MEDS ORDERED: IBUPROFEN 600 MG TAB PO STA (16:41)
[2017-05-09] MEDS ORDERED: EPINEPHRINE ADULT AUTO-INJECT 0.3 MG SYR IM STA (16:41)
[2017-05-09] MEDS ORDERED: FAMOTIDINE 20 MG TAB PO ONE (16:45)
--- NOTE | 2017-05-09 16:53 | EMERGENCY ROOM VISIT NOTE ---
History Report prepared by Vee: Alec Jo Under the Supervision of: Dr. René Hernandez M.D. First contact with patient: 16:20 Chief Complaint: ALLERGIC REACTION Stated Complaint: ALLERGIC REATION, USED EPIPEN Nursing Triage Summary: "I think I am having a reaction to my tb shot I got yesterday. I am itchy all over." History of Present Illness The patient is a 26 year old white female with a past medical history of frequent allergic reactions who presents to the ED with a cc of a constant but improving allergic reaction to a TB test beginning last night around 1900. Positive anaphylaxis, itchiness, SOB, throaty itchiness, throat tightness, headache, nausea, and difficulty swallowing. She took two doses of her EpiPen around 1900 last night and 1500 today. She is currently on her period which usually makes her allergic reactions worse. She has also taken Benadryl Source of History: patient Onset: 1899 last night Position: other (global) Quality: other (allergic reaction) Timing: constant, other (improving) Associated Symptoms: + headache, + SOB, + nausea Note: Associated symptoms: anaphylaxis, itchiness, throaty itchiness, throat tightness , and difficulty swallowing Review of Systems See HPI for pertinent positives and negatives. A total of ten systems were reviewed and were otherwise negative. 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 (26) Right ovarian cyst (27) Right ovarian cyst (28) Rupture of ovarian cyst (29) Seizure-like activity (30) Suicidal ideation (31) Syncope (32) Syncope (33) Vaginal discharge (34) Wrist sprain Surgical Problems: (1) History of colonoscopy Social History Problems: (1) Contusion of multiple sites Family History Cancer Diabetes mellitus Endometriosis MOTHER Heart disease Hypertrophic cardiomyopathy FATHER aunt Kidney disease Kidney stones Lung disease PCOS SISTER Social History Smoking Status: Never Smoker Alcohol Use: none Drug Use: none Marital Status: Housing Status: lives with family Occupation Status: unemployed Current/Historical Medications Scheduled Bupropion Hcl (Wellbutrin Xl), 150 MG PO QAM Epinephrine (Epipen 2-Layton), 2 PEN IM once Fexofenadine Hcl (Shanell Allergy), 180 MG PO BID Fluticasone Furoate-Vilanterol (Breo Ellipta 200-25 Mcg/INH), 1 PUFF INH DAILY Midodrine Hcl (Midodrine Hcl), 10 MG PO QID Montelukast Sod (Montelukast Sodium), 10 MG PO BID Pantoprazole (Protonix), 40 MG PO DAILY Prazosin HCl (Prazosin HCl), 1 MG PO HS Prednisone (Prednisone), 50 MG PO DAILY Ranitidine Hcl (Zantac), 300 MG PO BID Topiramate (Topamax), 100 MG PO BID Scheduled PRN Albuterol Hfa (Ventolin Hfa), 2 PUFFS INH Q4-6HRS PRN for Wheezing Albuterol Sulf (Proventil 0.083% 2.5MG/3ML), 3 ML NEB QID PRN for SOB/Wheezing Bbdbsmtuvf-Aeimhvgheovrk-Hnvvi (Fioricet), 2 CAP PO UD PRN for Headache Cromolyn Sodium (Mastocytosis) (Cromolyn Sodium), 10 ML PO QID PRN for Flares Diclofenac (Voltaren), 50 MG PO TID PRN for Headache or Pain Diphenhydramine Hcl (Benadryl Allergy), 25-75 MG PO UD PRN for ALLERGIC REACTION Epinephrine (Epipen), 0.3 MG IM UD PRN for ALLERGIC REACTION Loratadine (Claritin), 10 MG PO DAILY PRN for Allergy Symptoms Lorazepam (Lorazepam), 1 MG PO Q6H PRN for Anxiety Ondansetron Hcl (Zofran), 4 MG PO Q6H PRN for Nausea Prochlorperazine Maleate (Compazine), 10 MG PO QID PRN for Nausea Sumatriptan Succinate (Imitrex), 100 MG PO UD PRN for Migraine Sumatriptan Succinate (Imitrex Statdose), 6 MG IM UD PRN for Migraine Trazodone HCl (Trazodone HCl), 75 MG PO HS PRN for Sleep Allergies Coded Allergies: Cetirizine (Verified Allergy, Severe, anapyhylaxis, 04/24/17) Hydroxyzine (Verified Allergy, Severe, anaphylaxis, 04/24/17) Quercetin (Verified Allergy, Severe, ANAPHYLAXIS, 04/24/17) Ziprasidone (Verified Allergy, Severe, Anaphylaxis, 04/24/17) Reported by PT Aripiprazole (Verified Allergy, Intermediate, ., 04/24/17) BEE STING (Verified Allergy, Intermediate, anaphylaxis, 04/24/17) Lurasidone (Verified Allergy, Intermediate, ., 04/24/17) Cefaclor (Verified Allergy, Mild, ANAPHYLAXIS, 04/24/17) CI Pigment Blue 63 (Verified Allergy, Unknown, ANAPHYLAXIS, 04/24/17) Clonazepam (Verified Allergy, Unknown, anaphylaxis, 04/24/17) Dexlansoprazole (Verified Allergy, Unknown, ANAPHYLAXIS, 04/24/17) Doxycycline (Verified Allergy, Unknown, UNKNOWN, 04/24/17) Iodinated Diagnostic Agents (Verified Allergy, Unknown, ANAPHYLAXIS, ) must have pretreats, Red Dye (Verified Allergy, Unknown, ANAPHYLAXIS, 04/24/17) Uncoded Nonscreenable Allergen (Verified Allergy, Unknown, ETHLYENEDIAMINE DIHYDROCHLORIDE- A REHABILITATION SPECIALIST GENERIC DRUGS, 04/24/17) ETHLYENEDIAMINE DIHYDROCHLORIDE- A REHABILITATION SPECIALIST GENERIC DRUGS: CAUSES ANAPHYLAXIS Physical Exam Vital Signs Date Time Temp Pulse Resp B/P (MAP) Pulse Ox O2 Delivery O2 Flow Rate FiO2 05/09/17 18:34 72 18 119/63 100 Room Air 05/09/17 16:35 72 18 134/72 99 Room Air 05/09/17 15:37 99 Room Air 05/09/17 15:35 37.0 81 18 128/63 99 Room Air Physical Exam GENERAL: Awake, alert, well-appearing, NAD HENT: No pharyngeal swelling. Normocephalic, atraumatic. EYES: Normal conjunctiva. Sclera non-icteric. NECK: Supple. No nuchal rigidity. FROM. RESPIRATORY: No stridor. CTAB, no rhonchi, wheezing, crackles CARDIAC: RRR, no MRG ABDOMEN: Soft, NTND, BS+ MSK: No chest wall TTP, no LE edema NEURO: GCS 15, CN 2-12 intact, moves all 4s on command SKIN: Right upper extremity has small macules with mild erythema that does not extend beyond the macules. No jaundice noted. Medical Decision & Procedures Medications Administered Medications (Trade) Dose Ordered Sig/Geeta Route Start Time Stop Time Status Last Admin Dose Admin Famotidine (Pepcid Tab) 40 mg NOW ONCE PO 05/09/17 16:45 05/09/17 16:46 DC 05/09/17 17:10 40 MG Metoclopramide HCl (Reglan Tab) 10 mg ONE STAT PO 05/09/17 16:41 05/09/17 16:43 DC 05/09/17 17:09 10 MG Acetaminophen (Tylenol Tab) 1,000 mg NOW STAT PO 05/09/17 16:41 05/09/17 16:43 DC 05/09/17 17:10 1,000 MG Ibuprofen (Motrin Tab) 600 mg NOW STAT PO 05/09/17 16:41 05/09/17 16:43 DC 05/09/17 17:09 600 MG Prednisone (PredniSONE TAB) 50 mg ONE STAT PO 05/09/17 16:41 05/09/17 16:43 DC 05/09/17 17:10 50 MG Epinephrine (Epipen) 0.3 mg NOW STAT IM 05/09/17 16:41 05/09/17 16:43 DC 05/09/17 18:37 0.3 MG ED Course 1620: The patient was evaluated in room B6. A complete history and physical exam was performed. 1809: I reevaluated the patient. Discussed results and discharge instructions: She verbalized understanding and agreement. The patient is ready for discharge. Medical Decision The patient is a 26 year old white female with a past medical history of frequent allergic reactions who presents to the ED with a cc of a constant but improving allergic reaction to a TB test beginning last night around 0. Positive anaphylaxis, itchiness, SOB, throaty itchiness, throat tightness, headache, nausea, and difficulty swallowing. She took two doses of her EpiPen around 1900 last night and 1500 today. She is currently on her period which usually makes her allergic reactions worse. She has also taken Benadryl. Triage Nursing notes reviewed. The patient's presentation and history were concerning for etiologies such as allergic reaction, anaphylaxis, urticaria, Ruelas-Quoc syndrome, toxic epidermal necrolysis, erythema multiforme, cellulitis, as well as others were entertained. Patient was seen and evaluated the bedside. Patient states she does have a lot of allergic reactions. Patient did have recent TB test. Patient had self administered an EpiPen twice for severe itching and feeling throat was closing. Patient denies any shortness of breath, chest pain, nausea, vomiting. Patient does have some mild itching. Patient also to take Benadryl prior to arrival. On exam patient did have a small area of urticaria over the right upper extremity. Patient was clear to auscultation bilaterally without any wheezing. Patient was without stridor. Posterior pharynx clear. Patient was able to handle secretions. Patient very well-appearing did receive by mouth medications. Upon reassessment hour half later patient was continuing to improve. Patient was given an EpiPen for home. Patient was given strict follow -up, discharge, and return precautions. Patient agreed with plan of care and was safely discharged to home. Medication Reconcilliation Current Medication List: was personally reviewed by me Blood Pressure Screening Patient's blood pressure: Normal blood pressure Impression Primary Impression: Urticaria Additional Impression: Allergic reaction Scribe Attestation The scribe's documentation has been prepared under my direction and personally reviewed by me in its entirety. I confirm that the note above accurately reflects all work, treatment, procedures, and medical decision making performed by me. Departure Information Dispostion Home / Self-Care Prescriptions Epinephrine (EPIPEN 2-LAYTON) 0.3 Mg Inj 2 PEN IM once for 2 Days, #2 PEN Prov: René Hernandez M.D. 05/09/17 Prednisone (PREDNISONE) 50 Mg Tab 50 MG PO DAILY for 4 Days, #4 TAB Prov: René Hernandez M.D. 05/09/17 Referrals Hoa Moeller D.O. (PCP) Forms HOME CARE DOCUMENTATION FORM, IMPORTANT VISIT INFORMATION Patient Instructions ED Allergic Reaction General Other, ED Allergic Reaction Local Other, My [facility] Additional Instructions Please return to the emergency department if you have worsening or recurrent symptoms not amenable to at-home treatment. Please call for a follow-up appointment with her primary care physician. Please take your medications as prescribed. If you have other concerns and/or complaints please feel free to also call your primary care physician's office or return the ED for further evaluation, management, and treatment. You may take 600 mg Ibuprofen every 6 hours as needed for pain with food for no more than 2 consecutive days. You may take tylenol 1000mg every 6 hours as needed for pain. You may take motrin and tylenol separately or at the same time. You have been examined and treated today on an emergency basis only. This is not a substitute for, or an effort to provide, complete comprehensive medical care. It is impossible to recognize and treat all injuries or illnesses in a single emergency department visit. It is therefore important that you follow up closely with [facility]. Call as soon as possible for an appointment. Thank you for your time and consideration. I look forward to speaking with you again soon. Please don't hesitate to call us if you have any questions. Problem Qualifiers Additional Impression: Allergic reaction Encounter type: initial encounter Qualified Codes: T78.40XA - Allergy, unspecified, initial encounter
[2017-05-09] MEDS ORDERED: PRED50TA PO (18:24)
[2017-05-09 18:34] VITALS: BP 119/63; PULSE 72; O2SAT 100
[2017-05-09] MEDS ORDERED: [UNRECOGNIZED DRUG - CODE] PO (20:25)
[2017-05-09] MEDS ORDERED: ATV1 PO (20:25)
[2017-05-09] MEDS ORDERED: SNG10 PO (20:25)
[2017-05-09] MEDS ORDERED: ALBINS/ NEB (20:25)
[2017-05-09] MEDS ORDERED: RANI300T PO (20:25)
[2017-05-09] MEDS ORDERED: PANT40TA PO (20:26)
[2017-05-09] MEDS ORDERED: DICL50TA3 PO (21:31)
[2017-05-09] MEDS ORDERED: FEXO1TAB49 PO (22:35)
[2017-05-09] MEDS ORDERED: SUMA6KIT IM (22:35)
[2017-05-09] MEDS ORDERED: DSY50 PO (23:25)
[2017-05-09] MEDS ORDERED: ONDA4TAB46 PO (23:25)
[2017-05-09] MEDS ORDERED: TOPI100T34 PO (23:25)
== END 2017-05-09 18:36 | disposition home or self-care (01) ==
LOC: C.EDB 15:29
DX: T78.40XA Allergy, unspecified, initial encounter (principal); X58.XXXA Exposure to other specified factors, initial encounter; L50.8 Other urticaria; F41.9 Anxiety disorder, unspecified; F31.9 Bipolar disorder, unspecified; J45.909 Unspecified asthma, uncomplicated; K58.9 Irritable bowel syndrome, unspecified; K86.1 Other chronic pancreatitis; Z87.828 Personal history of other (healed) physical injury and trauma; Z79.899 Other long term (current) drug therapy; Z88.8 Allergy status to other drugs, medicaments and biological substances; Z91.041 Radiographic dye allergy status; Z80.9 Family history of malignant neoplasm, unspecified; Z83.3 Family history of diabetes mellitus; Z82.49 Family history of ischemic heart disease and other diseases of the circulatory system; Z84.1 Family history of disorders of kidney and ureter

== ENCOUNTER 2017-05-23 12:13 | Emergency (ER) | payer OTHER ==
[~2017-05-23] VITALS: Ht 165.1 cm; Wt 80.0 kg
[~2017-05-23 12:13] MED LIST changes: +ALBINS/ NEB; +ATV1 PO; +BUTA1CAP17 PO; +DICL50TA3 PO; +DSY50 PO; +FEXO1TAB49 PO; +MIDO10TA PO; +ONDA4TAB46 PO; +PANT40TA PO; -PROG100C6 PO; +RANI300T PO; +SNG10 PO; +SUMA6KIT IM; +TOPI100T34 PO; +VNTHFA/IN INH; +[UNRECOGNIZED DRUG - CODE] PO
[2017-05-23 12:19] VITALS: TEMP 37; Ht 165.1 cm; Wt 80.0 kg
[2017-05-23] MEDS ORDERED: FAMOTIDINE 20 MG TAB PO ONE (13:00)
--- NOTE | 2017-05-23 13:08 | EMERGENCY ROOM VISIT NOTE ---
History Report prepared by Vee: Krista Guaman Under the Supervision of: Dr. René Hernandez M.D. 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 She is not sure what she is allergic to. She thinks that the leaves are triggering her allergies. The patient had a rash on her back and abdomen last night, which she states has improved. She took two doses of her Epi pen today. Prior to today, she had not used her epi pen for a few weeks. The patient has also been taking Benadryl throughout the day. She was brought to the ED by ambulance for further evaluation. Positive "breathing problems," nausea, vomiting, and itchiness "all over." Pt denies recent changes in creams, lotions, detergents, and diet. Pt denies recent travel or recent bug bites. She notes redness and itching to her vagina for which she declined an exam today. She has a followup appointment with her PCP for this symptom later this week. Source of History: patient Onset: 5 days ago Position: other (global) Quality: other (itchy) Timing: worsening Associated Symptoms: + SOB, + nausea, + vomiting Review of Systems See HPI for pertinent positives and negatives. A total of ten systems were reviewed and were otherwise negative. 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 (26) Right ovarian cyst (27) Right ovarian cyst (28) Rupture of ovarian cyst (29) Seizure-like activity (30) Suicidal ideation (31) Syncope (32) Syncope (33) Vaginal discharge (34) Wrist sprain Surgical Problems: (1) History of colonoscopy Social History Problems: (1) Contusion of multiple sites Family History Cancer Diabetes mellitus Endometriosis MOTHER Heart disease Hypertrophic cardiomyopathy FATHER aunt Kidney disease Kidney stones Lung disease PCOS SISTER Social History Smoking Status: Never Smoker Alcohol Use: none Drug Use: none Marital Status: Housing Status: lives with family Occupation Status: unemployed Current/Historical Medications Scheduled Bupropion Hcl (Wellbutrin Xl), 150 MG PO QAM Epinephrine (Epipen 2-Layton), 2 PEN IM once Fexofenadine Hcl (Shanell Allergy), 180 MG PO BID Fluticasone Furoate-Vilanterol (Breo Ellipta 200-25 Mcg/INH), 1 PUFF INH DAILY Midodrine Hcl (Midodrine Hcl), 10 MG PO QID Montelukast Sod (Montelukast Sodium), 10 MG PO BID Pantoprazole (Protonix), 40 MG PO DAILY Prazosin HCl (Prazosin HCl), 1 MG PO HS Prednisone (Prednisone), 50 MG PO DAILY Ranitidine Hcl (Zantac), 300 MG PO BID Topiramate (Topamax), 100 MG PO BID Scheduled PRN Albuterol Hfa (Ventolin Hfa), 2 PUFFS INH Q4-6HRS PRN for Wheezing Albuterol Sulf (Proventil 0.083% 2.5MG/3ML), 3 ML NEB QID PRN for SOB/Wheezing Vdicswgoez-Emcnfrzbiqvey-Mtnsa (Fioricet), 2 CAP PO UD PRN for Headache Cromolyn Sodium (Mastocytosis) (Cromolyn Sodium), 10 ML PO QID PRN for Flares Diclofenac (Voltaren), 50 MG PO TID PRN for Headache or Pain Diphenhydramine Hcl (Benadryl Allergy), 25-75 MG PO UD PRN for ALLERGIC REACTION Epinephrine (Epipen), 0.3 MG IM UD PRN for ALLERGIC REACTION Loratadine (Claritin), 10 MG PO DAILY PRN for Allergy Symptoms Lorazepam (Lorazepam), 1 MG PO Q6H PRN for Anxiety Ondansetron Hcl (Zofran), 4 MG PO Q6H PRN for Nausea Prochlorperazine Maleate (Compazine), 10 MG PO QID PRN for Nausea Sumatriptan Succinate (Imitrex), 100 MG PO UD PRN for Migraine Sumatriptan Succinate (Imitrex Statdose), 6 MG IM UD PRN for Migraine Trazodone HCl (Trazodone HCl), 75 MG PO HS PRN for Sleep Allergies Coded Allergies: Cetirizine (Verified Allergy, Severe, anapyhylaxis, 05/23/17) Hydroxyzine (Verified Allergy, Severe, anaphylaxis, 05/23/17) Quercetin (Verified Allergy, Severe, ANAPHYLAXIS, 05/23/17) Ziprasidone (Verified Allergy, Severe, Anaphylaxis, 05/23/17) Reported by PT Aripiprazole (Verified Allergy, Intermediate, ., 05/23/17) BEE STING (Verified Allergy, Intermediate, anaphylaxis, 05/23/17) Lurasidone (Verified Allergy, Intermediate, ., 05/23/17) Cefaclor (Verified Allergy, Mild, ANAPHYLAXIS, 05/23/17) CI Pigment Blue 63 (Verified Allergy, Unknown, ANAPHYLAXIS, 05/23/17) Clonazepam (Verified Allergy, Unknown, anaphylaxis, 05/23/17) Dexlansoprazole (Verified Allergy, Unknown, ANAPHYLAXIS, 05/23/17) Doxycycline (Verified Allergy, Unknown, UNKNOWN, 05/23/17) Iodinated Diagnostic Agents (Verified Allergy, Unknown, ANAPHYLAXIS, 05/23) must have pretreats, Red Dye (Verified Allergy, Unknown, ANAPHYLAXIS, 05/23/17) Uncoded Nonscreenable Allergen (Verified Allergy, Unknown, ETHLYENEDIAMINE DIHYDROCHLORIDE- A VESSEL CREW MEMBER GENERIC DRUGS, 05/23/17) ETHLYENEDIAMINE DIHYDROCHLORIDE- A VESSEL CREW MEMBER GENERIC DRUGS: CAUSES ANAPHYLAXIS Physical Exam Vital Signs Date Time Temp Pulse Resp B/P (MAP) Pulse Ox O2 Delivery O2 Flow Rate FiO2 05/23/17 13:56 78 18 101/44 100 Room Air 05/23/17 13:13 78 18 100 05/23/17 13:01 135/60 05/23/17 12:43 81 20 99 05/23/17 12:31 95 05/23/17 12:31 127/53 05/23/17 12:28 135/54 05/23/17 12:19 37.0 81 20 131/52 100 Room Air 05/23/17 12:19 100 Room Air Physical Exam GENERAL: Awake, alert, well-appearing, NAD HENT: Normocephalic, atraumatic. EYES: Normal conjunctiva. Sclera non-icteric. NECK: Supple. No nuchal rigidity. FROM. RESPIRATORY: CTAB, no rhonchi, wheezing, crackles CARDIAC: RRR, no MRG ABDOMEN: Soft, NTND, BS+ MSK: No chest wall TTP, no LE edema NEURO: GCS 15, CN 2-12 intact, moves all 4s on command SKIN: No rash or jaundice noted. Medical Decision & Procedures Medications Administered Medications (Trade) Dose Ordered Sig/Geeta Route Start Time Stop Time Status Last Admin Dose Admin Methylprednisolone Sodium Succinate (Solu-Medrol IV) 125 mg NOW STAT IV 05/23/17 13:15 05/23/17 13:16 DC 05/23/17 13:21 125 MG ED Course 1234: The patient was evaluated in room A12B. A complete history and physical exam was performed. 1313: I discussed the treatment plan with the patient. 1315: Solu-Medrol 125 mg IV 1406: I reassessed the patient at this time. She is feeling better and resting comfortably. I discussed the results and treatment plan with the patient. I answered all pertaining questions that she had. She expressed understanding and verbalized agreement. The patient will be discharged home. Medical Decision The patient is a 26 year old white female with a past medical history of POTS, asthma, anxiety, and depression who presents to the ED with a cc of an allergic reaction worsening over the past 5 days. Differential diagnosis: Etiologies such as allergic reaction, anaphylaxis, urticaria, Ruelas-Quoc syndrome, toxic epidermal necrolysis, erythema multiforme, cellulitis, as well as others were entertained. Patient was seen and evaluated the bedside. Patient is a for recurrent history of self administering epinephrine for reaction. Patient states that she has had some itchiness and some discomfort. Patient states she does have a history of asthma which is fairly well controlled. Patient denies any recent changes in creams, detergents, clothing, contacts, or foods. Patient denies any shortness of breath or chest pain or throat tightness. Patient exam is non- stridulous posterior pharynx is clear and patient is without any wheezing. Patient does not have any notable urticaria. Patient retained Benadryl prior to arrival. Patient did get Solu-Medrol and famotidine. Upon reassessment patient was without any shortness of breath or wheezing and was still non- stridulous. Patient feeling improved. Patient was given prednisone for home. Patient was deemed safe for home at this time. Patient was given strict follow- up, discharge, and return precautions and was discharged home. Medication Reconcilliation Current Medication List: was personally reviewed by me Blood Pressure Screening Patient's blood pressure: Normal blood pressure Impression Primary Impression: Allergic reaction Scribe Attestation The scribe's documentation has been prepared under my direction and personally reviewed by me in its entirety. I confirm that the note above accurately reflects all work, treatment, procedures, and medical decision making performed by me. Departure Information Dispostion Home / Self-Care Prescriptions Prednisone (PREDNISONE) 50 Mg Tab 50 MG PO DAILY for 4 Days, #4 TAB Prov: René Hernandez M.D. 05/23/17 Referrals Hoa Moeller D.O. (PCP) Patient Instructions ED Allergic Reaction Local Other, My [facility] Additional Instructions Please return to the emergency department if you have worsening or recurrent symptoms not amenable to at-home treatment. Please call for a follow-up appointment with her primary care physician. Please take your medications as prescribed. If you have other concerns and/or complaints please feel free to also call your primary care physician's office or return the ED for further evaluation, management, and treatment. You have been examined and treated today on an emergency basis only. This is not a substitute for, or an effort to provide, complete comprehensive medical care. It is impossible to recognize and treat all injuries or illnesses in a single emergency department visit. It is therefore important that you follow up closely with [facility]. Call as soon as possible for an appointment. Thank you for your time and consideration. I look forward to speaking with you again soon. Please don't hesitate to call us if you have any questions. Problem Qualifiers Primary Impression: Allergic reaction Encounter type: initial encounter Qualified Codes: T78.40XA - Allergy, unspecified, initial encounter
[2017-05-23] MEDS ORDERED: METHYLPREDNISOLONE 125 MG VIAL IV STA (13:15)
[2017-05-23 13:56] VITALS: BP 101/44; PULSE 78; O2SAT 100
[2017-05-23] MEDS ORDERED: PRED50TA PO (14:02)
== END 2017-05-23 14:19 | disposition home or self-care (01) ==
LOC: EDBD 12:13 → C.EDA 12:15
DX: T78.40XA Allergy, unspecified, initial encounter (principal); X58.XXXA Exposure to other specified factors, initial encounter; F41.9 Anxiety disorder, unspecified; F31.9 Bipolar disorder, unspecified; D89.40 Mast cell activation, unspecified; J45.909 Unspecified asthma, uncomplicated; K58.9 Irritable bowel syndrome, unspecified; Z80.9 Family history of malignant neoplasm, unspecified; Z83.3 Family history of diabetes mellitus; Z82.49 Family history of ischemic heart disease and other diseases of the circulatory system; Z84.1 Family history of disorders of kidney and ureter; Z79.899 Other long term (current) drug therapy

== ENCOUNTER 2017-08-15 12:56 | Emergency (ER) | payer OTHER ==
[~2017-08-15] VITALS: Ht 165.1 cm; Wt 74.0 kg
[2017-08-15 13:05] VITALS: TEMP 37.1; Ht 165.1 cm; Wt 74.0 kg
[2017-08-15] MEDS ORDERED: METHYLPREDNISOLONE 125 MG VIAL IV STA (13:22)
[2017-08-15] MEDS ORDERED: DiphenhydrAMINE HCL 50 MG/ML VIAL IV STA ×2 (13:22→14:51)
--- NOTE | 2017-08-15 13:29 | EMERGENCY ROOM VISIT NOTE ---
History First contact with patient: 13:05 Chief Complaint: ALLERGIC REACTION Stated Complaint: ABDOMINAL CRAMPS/NAUSEA/FACIAL SWELLING Nursing Triage Summary: pt reports having Mast cell activation syndrome today at 10am pt drank new brand of distilled water and started with abd cramping, 1 emesis pt took 25mg Benedryl but continued with pain and lips and tongue swelling pt took epi pen on arrival to ER pt has no facial swelling, no pain and no rash pt does c/o feeling dizzy History of Present Illness The patient is a 27 year old female who presents to the Emergency Room with complaints of an allergic reaction that started this morning around 11:30 AM. The patient drinks some distilled water when she developed facial swelling, itchiness, difficulty breathing and abdominal cramping. She also had an episode of vomiting. She has a history of mass cell activation syndrome. She has multiple allergies. She took her EpiPen and 25 mg of Benadryl with minimal relief. She denies any diarrhea. She does complain of some difficulty swallowing. Review of Systems 10 system review performed and negative unless noted in HPI or below 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 (26) Right ovarian cyst (27) Right ovarian cyst (28) Rupture of ovarian cyst (29) Seizure-like activity (30) Suicidal ideation (31) Syncope (32) Syncope (33) Vaginal discharge (34) Wrist sprain Surgical Problems: (1) History of colonoscopy Social History Problems: (1) Contusion of multiple sites Family History Cancer Diabetes mellitus Endometriosis MOTHER Heart disease Hypertrophic cardiomyopathy FATHER aunt Kidney disease Kidney stones Lung disease PCOS SISTER Social History Smoking Status: Never Smoker Alcohol Use: none Drug Use: none Marital Status: Housing Status: lives with family Occupation Status: unemployed Current/Historical Medications Scheduled Bupropion Hcl (Wellbutrin Xl), 150 MG PO QAM Epinephrine (Epipen 2-Layton), 2 PEN IM once Fluticasone Furoate-Vilanterol (Breo Ellipta 200-25 Mcg/INH), 1 PUFF INH DAILY Loratadine (Claritin), 20 MG PO DAILY Midodrine Hcl (Midodrine Hcl), 10 MG PO QID Montelukast Sod (Montelukast Sodium), 10 MG PO BID Pantoprazole (Protonix), 40 MG PO DAILY Prazosin HCl (Prazosin HCl), 1 MG PO HS Ranitidine Hcl (Zantac), 300 MG PO BID Topiramate (Topamax), 100 MG PO BID Scheduled PRN Albuterol Hfa (Ventolin Hfa), 2 PUFFS INH Q4-6HRS PRN for Wheezing Albuterol Sulf (Proventil 0.083% 2.5MG/3ML), 3 ML NEB QID PRN for SOB/Wheezing Agpkytpweg-Hjcjfitlgaijl-Enfbu (Fioricet), 2 CAP PO UD PRN for Headache Diphenhydramine Hcl (Benadryl Allergy), 25-75 MG PO UD PRN for ALLERGIC REACTION Epinephrine (Epipen), 0.3 MG IM UD PRN for ALLERGIC REACTION Lorazepam (Lorazepam), 1 MG PO Q6H PRN for Anxiety Ondansetron Hcl (Zofran), 4 MG PO Q6H PRN for Nausea Prochlorperazine Maleate (Compazine), 10 MG PO QID PRN for Nausea Sumatriptan Succinate (Imitrex), 100 MG PO UD PRN for Migraine Sumatriptan Succinate (Imitrex Statdose), 6 MG IM UD PRN for Migraine Trazodone HCl (Trazodone HCl), 100 MG PO HS PRN for Sleep Physical Exam Vital Signs Date Time Temp Pulse Resp B/P (MAP) Pulse Ox O2 Delivery O2 Flow Rate FiO2 08/15/17 16:39 118 20 133/52 98 Room Air 08/15/17 16:17 122 20 133/65 100 Room Air 08/15/17 15:00 110 20 133/98 Room Air 08/15/17 14:01 98 Room Air 08/15/17 14:01 112 20 135/69 100 Room Air 08/15/17 13:05 96 Room Air 08/15/17 13:05 37.1 112 20 137/69 96 Room Air 08/15/17 13:03 111 Physical Exam GENERAL: 27-year-old female, in mild distress,, in no acute distress, nondiaphoretic, well-developed well-nourished. SKIN: The skin was without rashes, erythema, edema, or bruising. HEAD: Normocephalic atraumatic. MOUTH: Mucous membranes slightly dry. No swelling of the oral mucosa.. Uvula is midline. Airway is patent. NECK: Supple without nuchal rigidity. Cervical spine is nontender. No JVD. HEART: Tachycardic, regular rhythm without murmurs gallops or rubs. LUNGS: Clear to auscultation bilaterally without wheezes, rales or rhonchi. No accessory muscle use. ABDOMEN: Positive bowel sounds x 4.Soft, nontender, without organomegaly. No guarding or rebound tenderness. MUSCULOSKELETAL: No muscle atrophy, erythema, or edema noted. Strength 5/5 throughout. NEURO: Patient was alert and oriented to person place and time. Normal sensation to touch. No focal neurological deficits. Medical Decision & Procedures Laboratory Results 08/15/17 13:50 Red Blood Count 5.25, Mean Corpuscular Volume 84.2, Mean Corpuscular Hemoglobin 30.3, Mean Corpuscular Hemoglobin Concent 36.0, Mean Platelet Volume 9.2, Neutrophils (%) (Auto) 79.5, Lymphocytes (%) (Auto) 13.6, Monocytes (%) (Auto) 6.2, Eosinophils (%) (Auto) 0.3, Basophils (%) (Auto) 0.3, Neutrophils # (Auto) 6.16, Lymphocytes # (Auto) 1.05, Monocytes # (Auto) 0.48, Eosinophils # (Auto) 0.02, Basophils # (Auto) 0.02 08/15/17 13:50 Test 08/15/17 13:50 08/15/17 15:30 White Blood Count 7.74 K/uL (4.8-10.8) Red Blood Count 5.25 M/uL (4.2-5.4) Hemoglobin 15.9 g/dL (12.0-16.0) Hematocrit 44.2 % (37-47) Mean Corpuscular Volume 84.2 fL (80-100) Mean Corpuscular Hemoglobin 30.3 pg (25-34) Mean Corpuscular Hemoglobin Concent 36.0 g/dl (32-36) Platelet Count 206 K/uL (130-400) Mean Platelet Volume 9.2 fL (7.4-10.4) Neutrophils (%) (Auto) 79.5 % Lymphocytes (%) (Auto) 13.6 % Monocytes (%) (Auto) 6.2 % Eosinophils (%) (Auto) 0.3 % Basophils (%) (Auto) 0.3 % Neutrophils # (Auto) 6.16 K/uL (1.4-6.5) Lymphocytes # (Auto) 1.05 K/uL (1.2-3.4) Monocytes # (Auto) 0.48 K/uL (0.11-0.59) Eosinophils # (Auto) 0.02 K/uL (0-0.5) Basophils # (Auto) 0.02 K/uL (0-0.2) RDW Standard Deviation 37.9 fL (36.4-46.3) RDW Coefficient of Variation 12.4 % (11.5-14.5) Immature Granulocyte % (Auto) 0.1 % Immature Granulocyte # (Auto) 0.01 K/uL (0.00-0.02) Anion Gap 8.0 mmol/L (3-11) Est Creatinine Clear Calc Drug Dose 74.0 ml/min Estimated GFR () 75.3 Estimated GFR (Non- 64.9 BUN/Creatinine Ratio 10.5 (10-20) Calcium Level 9.4 mg/dl (8.5-10.1) Total Bilirubin 0.4 mg/dl (0.2-1) Aspartate Amino Transf (AST/SGOT) 13 U/L (15-37) Alanine Aminotransferase (ALT/SGPT) 27 U/L (12-78) Alkaline Phosphatase 107 U/L (45-117) Total Protein 7.4 gm/dl (6.4-8.2) Albumin 4.1 gm/dl (3.4-5.0) Globulin 3.3 gm/dl (2.5-4.0) Albumin/Globulin Ratio 1.2 (0.9-2) Lipase 155 U/L (73-393) Urine Color YELLOW Urine Appearance CLEAR (CLEAR) Urine pH 6.0 (4.5-7.5) Urine Specific [place] 1.010 (1.000-1.030) Urine Protein NEG (NEG) Urine Glucose (UA) NEG (NEG) Urine Ketones NEG (NEG) Urine Occult Blood NEG (NEG) Urine Nitrite NEG (NEG) Urine Bilirubin NEG (NEG) Urine Urobilinogen NEG (NEG) Urine Leukocyte Esterase NEG (NEG) Urine Test NEG (NEG) Medications Administered Medications (Trade) Dose Ordered Sig/Geeta Route Start Time Stop Time Status Last Admin Dose Admin Sodium Chloride 1,000 ml @ 999 mls/hr Q1H1M ONCE IV 08/15/17 13:30 08/15/17 14:30 DC 08/15/17 14:00 999 MLS/HR Ondansetron HCl (Zofran Inj) 4 mg Q2H PRN IV 08/15/17 13:30 08/15/17 17:09 DC 08/15/17 14:00 4 MG Methylprednisolone Sodium Succinate (Solu-Medrol IV) 125 mg NOW STAT IV 08/15/17 13:22 08/15/17 13:25 DC 08/15/17 14:01 125 MG Diphenhydramine HCl (Benadryl Inj) 25 mg NOW STAT IV 08/15/17 13:22 08/15/17 13:26 DC 08/15/17 14:01 25 MG Epinephrine HCl (EpINEphrine INJ 1MG/ML AMP/VIAL) 0.3 mg NOW STAT IM 08/15/17 14:16 08/15/17 14:17 DC 08/15/17 14:27 0.3 MG Sodium Chloride 1,000 ml @ 999 mls/hr Q1H1M ONCE IV 08/15/17 14:30 08/15/17 15:30 DC 08/15/17 15:26 999 MLS/HR Diphenhydramine HCl (Benadryl Inj) 25 mg NOW STAT IV 08/15/17 14:51 08/15/17 14:53 DC 08/15/17 15:26 25 MG Albuterol/ Ipratropium (Duoneb) 3 ml ONE STAT INH 08/15/17 14:51 08/15/17 14:53 DC 08/15/17 15:26 3 ML ED Course Patient was seen and examined Vital signs including blood pressure were reviewed medications list was verified with patient Labs were obtained, and a saline lock was established The patient was medicated with Solu-Medrol, Zofran, Benadryl, Bentyl and hydrated with 1 L of normal saline. Upon reevaluation, the patient was complaining of difficulty breathing. She was reevaluated. Her lungs were clear. She requested epinephrine. She was given a dose of EpiPen IM. She was also bolused with another liter of normal saline. The patient was also given a DuoNeb and an additional dose of Benadryl Upon reevaluation, she was feeling much better. She denies any difficulty breathing. Her itching was improved. She felt stable being discharged home. I was called to reevaluate the patient and she was complaining of feeling "funny." She was reassessed. There is no change in her physical exam. Her vital signs are stable. The case was discussed with my supervising physician who is in agreement with my plan I reviewed discharge instructions the patient. They voiced understanding and had no further questions. Medical Decision Differential diagnosis: Allergic reaction, anaphylaxis, angioedema, drug- seeking behavior, anxiety This patient is a 27-year-old female that presents to emergency department with complaints of an allergic reaction prior to arrival. On exam, she does not have any signs of a rash or angioedema. Her lungs are clear. She was tachycardic, which is likely due to the administration of epinephrine. The patient did request a dose of epinephrine, which was given in the emergency department. She was also treated with Benadryl, steroids, Zofran and fluids. Although the patient continued to feel symptomatic, she did not have any changes in her physical exam. Her vital signs remained stable besides tachycardia. I am concern for drug-seeking behavior. The patient was advised to follow up closely with her primary care physician. She will also follow-up with her specialist soon as possible. She was encouraged to return to the emergency department with any new, worsening or concerning symptoms Impression Primary Impression: Allergic reaction Departure Information Dispostion Home / Self-Care Condition GOOD Referrals Hoa Moeller D.O. (PCP) Patient Instructions My [facility] Additional Instructions You have been evaluated in the emergency department for an allergic reaction. Please continue current medications as prescribed. You have been examined and treated today on an emergency basis only. This is not a substitute for, or an effort to provide, complete comprehensive medical care. It is impossible to recognize and treat all injuries or illnesses in a single emergency department visit. It is therefore important that you follow up closely with [facility], your PCP, and/or your specialist(s). Call as soon as possible for an appointment. Please do not hesitate to return to the emergency department with any new, worsening or concerning symptoms.
[2017-08-15] MEDS ORDERED: SODIUM CHLORIDE 0.9% 1000ML 1,000 ML IV ONE ×2 (13:30→14:30)
[2017-08-15] MEDS ORDERED: ONDANSETRON INJ 2 MG/ML 2 ML VIAL IV PRN (13:30)
[2017-08-15 14:01] VITALS: O2SAT 98
[2017-08-15] MEDS: DICYCLOMINE HCL 20 MG TAB PO ONE ×2 (14:01→14:06)
[2017-08-15 14:04] LABS: HEMATOCRIT 44.2 % (37-47); HEMOGLOBIN 15.9 g/dL (12.0-16.0); MEAN CELL VOLUME 84.2 fL (80-100); MEAN CORPUSCULAR HEMOGLOBIN 30.3 pg (25-34); MEAN PLATELET VOLUME 9.2 fL (7.4-10.4); PLATELET COUNT 206 K/uL (130-400); RED CELL DISTRIBUTION WIDTH CV 12.4 % (11.5-14.5); RED CELL DISTRIBUTION WIDTH SD 37.9 fL (36.4-46.3); WHITE BLOOD COUNT 7.74 K/uL (4.8-10.8)
[2017-08-15] MEDS ORDERED: EpINEphrine INJ 1MG/ML AMP 1 MG/ML AMP IM STA (14:16)
[2017-08-15 14:24] LABS: ALBUMIN 4.1 gm/dl (3.4-5.0); CALCIUM 9.4 mg/dl (8.5-10.1); CREATININE 1.16 mg/dl (0.60-1.20); POTASSIUM 3.6 mmol/L (3.5-5.1)
[2017-08-15 14:26] LABS: BASO % 0.3 %; BASO ABS # 0.02 K/uL (0-0.2); EOS % 0.3 %; EOS ABS # 0.02 K/uL (0-0.5); IG# 0.01 K/uL (0.00-0.02); LYMPH % 13.6 %; LYMPH ABS # 1.05 K/uL (1.2-3.4); MONO % 6.2 %; MONO ABS # 0.48 K/uL (0.11-0.59); NEUT % 79.5 %; NEUT ABS # 6.16 K/uL (1.4-6.5); TOTAL PROTEIN 7.4 gm/dl (6.4-8.2)
[2017-08-15] MEDS ORDERED: ALBUT/IPRATROP 3MG/0.5MG NEB 3 ML VIAL INH STA (14:51)
[2017-08-15] MEDS ORDERED: CLR10 PO (15:20)
[2017-08-15 16:39] VITALS: BP 133/52; PULSE 118; O2SAT 98
== END 2017-08-15 16:55 | disposition home or self-care (01) ==
LOC: EDBD 12:56 → C.EDB 12:58
DX: T78.40XA Allergy, unspecified, initial encounter (principal); X58.XXXA Exposure to other specified factors, initial encounter; D89.40 Mast cell activation, unspecified; J45.909 Unspecified asthma, uncomplicated; R00.0 Tachycardia, unspecified; Z79.51 Long term (current) use of inhaled steroids; Z83.3 Family history of diabetes mellitus; Z84.2 Family history of other diseases of the genitourinary system; Z82.49 Family history of ischemic heart disease and other diseases of the circulatory system; Z84.1 Family history of disorders of kidney and ureter; Z83.6 Family history of other diseases of the respiratory system

== ENCOUNTER 2017-08-18 19:03 | Emergency (ER) | payer OTHER ==
[~2017-08-18] VITALS: Ht 165.1 cm; Wt 73.0 kg
[~2017-08-18 19:03] MED LIST changes: -ALBINS/ NEB; -ATV1 PO; -BUPRTAB PO; -BUTA1CAP17 PO; -CLR10 PO; -DICL50TA3 PO; -DIPH25CA65 PO; -DSY50 PO; -FEXO1TAB49 PO; -FLUT1INH7 INH; -ONDA4TAB46 PO; -PANT40TA PO; -PROC1TAB5 PO; -PRZ1 PO; -RANI300T PO; -SNG10 PO; -SUMA100T16 PO; -SUMA6KIT IM; -TOPI100T34 PO; -VNTHFA/IN INH; -[UNRECOGNIZED DRUG - CODE] PO
[2017-08-18 19:14] VITALS: TEMP 37; Ht 165.1 cm; Wt 73.0 kg
[2017-08-18] MEDS ORDERED: METHYLPREDNISOLONE 125 MG VIAL IV STA (19:18)
[2017-08-18] MEDS ORDERED: SODIUM CHLORIDE 0.9% 1000ML 1,000 ML IV STA (19:18)
[2017-08-18] MEDS ORDERED: RANITIDINE HCL 50 MG/100 ML D5W IV STA (19:18)
[2017-08-18] MEDS ORDERED: ONDANSETRON INJ 2 MG/ML 2 ML VIAL IV STA (19:18)
[2017-08-18] MEDS ORDERED: DiphenhydrAMINE HCL 50 MG/ML VIAL IV STA (19:18)
[2017-08-18] MEDS ORDERED: DiphenhydrAMINE HCL 50 MG/ML VIAL ONE (19:28)
--- NOTE | 2017-08-18 19:28 | EMERGENCY ROOM VISIT NOTE ---
History Report prepared by Vee: Ye Galloway Under the Supervision of: Dr. lCiff France M.D. First contact with patient: 19:13 Stated Complaint: ALLERGIC REACTION/UNKNOWN History of Present Illness The patient is a 27 year old female who presents to the Emergency Room via EMS with complaints of a persistent allergic reaction that started prior to arrival this evening. Per the nursing staff, the patient was given 3 EpiPen's at home, and received IV Benadryl by the medics. The patient came in on 3 liters of oxygen because she requested, although the medics noted that it was not necessary. The patient states that she has a history of these allergic reactions in the past, and states that she has been seen in [place] and was diagnosed with mastocytosis. The patient says that she felt like something was stuck in her throat, and she wanted to vomit. She states that she felt chest tightness and shortness of breath. She says that she still does not feel "100 percent". She notes that she was recently switched by her doctors from [facility] to [facility] a week ago, and she thinks that this change excited this allergic reaction. She adds that she has been feeling under the weather lately, with cough and congestion. She denies any chance of . Source of History: patient Onset: [employer]OL[employer] this evening Position: other (global - allergic reaction) Quality: other (unknown) Timing: other (persistent) Associated Symptoms: + cough (and congestion recently), + chest pain ( tightness), + SOB, + nausea, No vomiting Note: Something stuck in throat. Still does not feel 100%. Review of Systems See HPI for pertinent positives and negatives. A total of ten systems were reviewed and were otherwise negative. 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 (26) Right ovarian cyst (27) Right ovarian cyst (28) Rupture of ovarian cyst (29) Seizure-like activity (30) Suicidal ideation (31) Syncope (32) Syncope (33) Vaginal discharge (34) Wrist sprain Surgical Problems: (1) History of colonoscopy Social History Problems: (1) Contusion of multiple sites Family History Cancer Diabetes mellitus Endometriosis MOTHER Heart disease Hypertrophic cardiomyopathy FATHER aunt Kidney disease Kidney stones Lung disease PCOS SISTER Social History Smoking Status: Never Smoker Alcohol Use: none Drug Use: none Marital Status: Housing Status: lives with family Occupation Status: unemployed Current/Historical Medications Scheduled Bupropion Hcl (Wellbutrin Xl), 150 MG PO QAM Epinephrine (Epipen 2-L[place]), 2 PEN IM once Fluticasone Furoate-Vilanterol (Breo Ellipta 200-25 Mcg/INH), 1 PUFF INH DAILY Loratadine (Claritin), 20 MG PO DAILY Midodrine Hcl (Midodrine Hcl), 10 MG PO QID Montelukast Sod (Montelukast Sodium), 10 MG PO BID Pantoprazole (Protonix), 40 MG PO DAILY Prazosin HCl (Prazosin HCl), 1 MG PO HS Prednisone (Prednisone), 3 TAB PO DAILY Ranitidine Hcl (Zantac), 300 MG PO BID Topiramate (Topamax), 100 MG PO BID Scheduled PRN Albuterol Hfa (Ventolin Hfa), 2 PUFFS INH Q4-6HRS PRN for Wheezing Albuterol Sulf (Proventil 0.083% 2.5MG/3ML), 3 ML NEB QID PRN for SOB/Wheezing Zkafjaoctf-Gkbpufzdrghpz-Uzwcv (Fioricet), 2 CAP PO UD PRN for Headache Diphenhydramine Hcl (Benadryl Allergy), 25-75 MG PO UD PRN for ALLERGIC REACTION Epinephrine (Epipen), 0.3 MG IM UD PRN for ALLERGIC REACTION Lorazepam (Lorazepam), 1 MG PO Q6H PRN for Anxiety Ondansetron Hcl (Zofran), 4 MG PO Q6H PRN for Nausea Prochlorperazine Maleate (Compazine), 10 MG PO QID PRN for Nausea Sumatriptan Succinate (Imitrex), 100 MG PO UD PRN for Migraine Sumatriptan Succinate (Imitrex Statdose), 6 MG IM UD PRN for Migraine Trazodone HCl (Trazodone HCl), 100 MG PO HS PRN for Sleep Allergies Coded Allergies: Cetirizine (Verified Allergy, Severe, anapyhylaxis, 08/18/17) Hydroxyzine (Verified Allergy, Severe, anaphylaxis, 08/18/17) Quercetin (Verified Allergy, Severe, ANAPHYLAXIS, 08/18/17) Ziprasidone (Verified Allergy, Severe, Anaphylaxis, 08/18/17) Reported by PT Aripiprazole (Verified Allergy, Intermediate, ., 08/18/17) BEE STING (Verified Allergy, Intermediate, anaphylaxis, 08/18/17) Lurasidone (Verified Allergy, Intermediate, ., 08/18/17) Cefaclor (Verified Allergy, Mild, ANAPHYLAXIS, 08/18/17) CI Pigment Blue 63 (Verified Allergy, Unknown, ANAPHYLAXIS, 08/18/17) Clonazepam (Verified Allergy, Unknown, anaphylaxis, 08/18/17) Dexlansoprazole (Verified Allergy, Unknown, ANAPHYLAXIS, 08/18/17) Doxycycline (Verified Allergy, Unknown, UNKNOWN, 08/18/17) Ethylenediamine (Unverified Allergy, Unknown, ANAPHYLAXIS, 08/18/17) Iodinated Diagnostic Agents (Verified Allergy, Unknown, ANAPHYLAXIS, ) must have pretreats, Red Dye (Verified Allergy, Unknown, ANAPHYLAXIS, 08/18/17) Uncoded Nonscreenable Allergen (Verified Allergy, Unknown, ETHLYENEDIAMINE DIHYDROCHLORIDE- A FOREST ECOLOGIST GENERIC DRUGS, 08/18/17) ETHLYENEDIAMINE DIHYDROCHLORIDE- A FOREST ECOLOGIST GENERIC DRUGS: CAUSES ANAPHYLAXIS Physical Exam Vital Signs Date Time Temp Pulse Resp B/P (MAP) Pulse Ox O2 Delivery O2 Flow Rate FiO2 08/18/17 22:39 81 18 135/65 98 08/18/17 22:05 93 22 97 Room Air 08/18/17 22:00 131/70 08/18/17 21:35 94 23 98 Room Air 08/18/17 21:30 123/75 08/18/17 21:05 92 18 99 Room Air 08/18/17 21:00 123/66 08/18/17 20:35 90 20 100 Room Air 08/18/17 20:30 124/77 1/12/18 20:03 91 19 99 Room Air 08/18/17 20:00 129/75 08/18/17 19:41 127/55 08/18/17 19:34 94 08/18/17 19:14 99 Nasal Cannula 3.0 08/18/17 19:14 37.0 90 18 143/61 99 Nasal Cannula 3.0 08/18/17 19:06 143/61 Physical Exam GENERAL: Awake, alert, anxious-appearing, in no distress HENT: Normocephalic, atraumatic. No oropharyngeal edema, elevation, trismus, or stridor. EYES: Normal conjunctiva. Sclera non-icteric. NECK: Supple. No nuchal rigidity. FROM. No JVD. RESPIRATORY: Clear to auscultation. CARDIAC: Regular rate, normal rhythm. Extremities warm and well perfused. Pulses equal. ABDOMEN: Soft, non-distended. No tenderness to palpation. No rebound or guarding. No masses. RECTAL: Deferred. MUSCULOSKELETAL: Chest examination reveals no tenderness. The back is symmetrical on inspection without obvious abnormality. There is no CVA tenderness to palpation. No joint edema. LOWER EXTREMITIES: Calves are equal size bilaterally and non-tender. No edema. No discoloration. NEURO: Normal sensorium. No sensory or motor deficits noted. SKIN: No rash or jaundice noted. Medical Decision & Procedures Medications Administered Medications (Trade) Dose Ordered Sig/Geeta Route Start Time Stop Time Status Last Admin Dose Admin Methylprednisolone Sodium Succinate (Solu-Medrol IV) 125 mg NOW STAT IV 08/18/17 19:18 08/18/17 19:26 DC 08/18/17 19:34 125 MG Sodium Chloride 1,000 ml @ 999 mls/hr Q1H1M STAT IV 08/18/17 19:18 08/18/17 20:18 DC 08/18/17 19:34 999 MLS/HR Ondansetron HCl (Zofran Inj) 4 mg NOW STAT IV 08/18/17 19:18 08/18/17 19:26 DC 08/18/17 19:34 4 MG Diphenhydramine HCl (Benadryl Inj) 50 mg NOW STAT IV 08/18/17 19:18 08/18/17 19:26 DC 08/18/17 19:34 50 MG Ranitidine HCl 50 mg/Dextrose 102 ml @ 204 mls/hr NOW STAT IV 08/18/17 19:53 08/18/17 20:22 DC 08/18/17 20:11 204 MLS/HR Albuterol/ Ipratropium (Duoneb) 3 ml NOW STAT INH 08/18/17 20:13 08/18/17 20:15 DC 08/18/17 20:13 3 ML ED Course 1914: The patient was evaluated in room C7. A complete history and physical exam was performed. 2218: I reevaluated the patient and she is resting comfortably. Discussed results and discharge instructions: she verbalized understanding and agreement. The patient is ready for discharge. Medical Decision I reviewed the patient's past medical history, medications, and the nursing notes as described above. Differential diagnosis includes but is not limited to: allergic reaction, anaphylaxis, mass cell degranulation, panic attack, dehydration, electrolyte abnormalities. The patient is a 27 y/o woman with a pxhx of mast cell activation syndrome, per patient, with repeat ED visits for same presents to the ED with c/o of episode of her MCAS/allergic reaction where she began to have itching, chest tightness, and difficulty swallowing when her boyfriend lit scented oil in their home per HPI. Patient began her tx protocol, determined by her specialist in [place], which includes repeat epi pen injections x 3 followed by benadryl. On arrival the patient is anxious appearing but in NAD, AFVSS. No rashes. CTAB. Oropharynx without injection, edema. Per patients protocol she was given solumedrol, benadryl, zantac, and neb. Additionally given IVF all with good effect and patient feeling return to her baseline. Findings and plan for follow-up reviewed with patient. Patient agreeable and d/c'd per discharge instructions. Medication Reconcilliation Current Medication List: was personally reviewed by me Blood Pressure Screening Patient's blood pressure: Elevated blood pressure Blood pressure disposition: Elevated BP felt to be situational Impression Primary Impression: Allergic reaction Scribe Attestation The scribe's documentation has been prepared under my direction and personally reviewed by me in its entirety. I confirm that the note above accurately reflects all work, treatment, procedures, and medical decision making performed by me. Departure Information Dispostion Home / Self-Care Prescriptions Prednisone (Prednisone) 20 Mg Tab 3 TAB PO DAILY for 4 Days, #12 TAB FOR 4 DAYS Prov: Cliff France M.D. 08/18/17 Referrals Hoa Moeller D.O. (PCP) Patient Instructions ED Allergic Reaction General Other, My [facility] Additional Instructions Please follow up with your primary care physician in the next 1-3 days for re- evaluation. Otherwise, your exam did not show signs of an emergent condition at this time. Prednisone as directed. Return to the emergency department for worsening symptoms as described in the accompanying instructions.
[2017-08-18] MEDS ORDERED: RANITIDINE IV 50 MG in DEXTROSE 5% 100ML 100 ML IV STA (19:53)
[2017-08-18] MEDS ORDERED: ALBUT/IPRATROP 3MG/0.5MG NEB 3 ML VIAL INH STA (20:13)
[2017-08-18] MEDS ORDERED: PRED20TA PO (22:28)
[2017-08-18 22:39] VITALS: BP 135/65; PULSE 81; O2SAT 98
[2017-08-22] MEDS ORDERED: BUPRTAB PO (02:07)
[2017-08-22] MEDS ORDERED: PROC1TAB5 PO (10:51)
[2017-08-22] MEDS ORDERED: PRZ1 PO (10:52)
[2017-08-22] MEDS ORDERED: FLUT1INH7 INH (13:03)
[2017-08-22] MEDS ORDERED: DIPH25CA65 PO (13:13)
[2017-08-22] MEDS ORDERED: SUMA100T16 PO (14:12)
[2017-08-22] MEDS ORDERED: CLR10 PO (15:20)
[2017-08-22] MEDS ORDERED: BUTA1CAP17 PO (15:36)
[2017-08-22] MEDS ORDERED: VNTHFA/IN INH (15:59)
[2017-08-22] MEDS ORDERED: EPP3/2 IM (16:04)
== END 2017-08-18 22:40 | disposition home or self-care (01) ==
LOC: EDBD 19:03 → C.EDC 19:04
DX: T78.40XA Allergy, unspecified, initial encounter (principal); X58.XXXA Exposure to other specified factors, initial encounter; F41.9 Anxiety disorder, unspecified; K58.9 Irritable bowel syndrome, unspecified; F31.9 Bipolar disorder, unspecified; J45.909 Unspecified asthma, uncomplicated; N83.201 Unspecified ovarian cyst, right side; K80.20 Calculus of gallbladder without cholecystitis without obstruction; Z87.828 Personal history of other (healed) physical injury and trauma; Z91.81 History of falling; Z79.899 Other long term (current) drug therapy; Z88.8 Allergy status to other drugs, medicaments and biological substances; Z91.030 Bee allergy status; Z91.041 Radiographic dye allergy status; Z80.9 Family history of malignant neoplasm, unspecified; Z83.3 Family history of diabetes mellitus; Z82.49 Family history of ischemic heart disease and other diseases of the circulatory system; Z84.1 Family history of disorders of kidney and ureter

== ENCOUNTER 2017-08-22 17:25 | Emergency (ER) | payer OTHER ==
[~2017-08-22] VITALS: Ht 165.1 cm; Wt 70.5 kg
[~2017-08-22 17:25] MED LIST changes: +BUPRTAB PO; +BUTA1CAP17 PO; +CLR10 PO; +DIPH25CA65 PO; +FLUT1INH7 INH; +PRED20TA PO; +PROC1TAB5 PO; +PRZ1 PO; +SUMA100T16 PO; +VNTHFA/IN INH
[2017-08-22 17:28] VITALS: Ht 165.1 cm; Wt 70.5 kg
[2017-08-22 18:10] LABS: BASO % 0.1 %; BASO ABS # 0.01 K/uL (0-0.2); EOS % 0.4 %; EOS ABS # 0.04 K/uL (0-0.5); HEMATOCRIT 41.6 % (37-47); HEMOGLOBIN 14.9 g/dL (12.0-16.0); IG# 0.03 K/uL (0.00-0.02); LYMPH % 29.4 %; LYMPH ABS # 2.83 K/uL (1.2-3.4); MEAN CELL VOLUME 83.7 fL (80-100); MEAN CORPUSCULAR HGB CONC 35.8 g/dl (32-36); MONO % 7.4 %; MONO ABS # 0.71 K/uL (0.11-0.59); NEUT % 62.4 %; NEUT ABS # 6.01 K/uL (1.4-6.5); PLATELET COUNT 168 K/uL (130-400); RED CELL DISTRIBUTION WIDTH CV 12.5 % (11.5-14.5); RED CELL DISTRIBUTION WIDTH SD 37.8 fL (36.4-46.3); WHITE BLOOD COUNT 9.63 K/uL (4.8-10.8)
[2017-08-22 18:27] LABS: CALCIUM 9.3 mg/dl (8.5-10.1); CREATININE 1.02 mg/dl (0.60-1.20); POTASSIUM 2.8 mmol/L (3.5-5.1)
[2017-08-22 18:30] LABS: TOTAL PROTEIN 6.8 gm/dl (6.4-8.2)
--- NOTE | 2017-08-22 18:46 | DIAGNOSTIC IMAGING REPORT ---
ABDOMEN 2VIEW W/PA CHEST RTN CLINICAL HISTORY: ABDOMINAL PAIN/GI pain. Nausea. COMPARISON STUDY: No previous studies for comparison. FINDINGS: The soft tissues, psoas shadows, renal outlines and intestinal gas pattern appear normal. There is no evidence for bowel obstruction. There is no evidence for free intraperitoneal air. No abnormal abdominal calcifications are seen. A frontal view of the chest was performed and is unremarkable. IMPRESSION: Normal study. The above report was generated using voice recognition software. It may contain grammatical, syntax or spelling errors. Electronically signed by: Larry Ocampo M.D. 08/22/2017 6:45 PM Dictated Date/Time: 08/22/2017 6:43 PM
--- NOTE | 2017-08-22 19:02 | EMERGENCY ROOM VISIT NOTE ---
History Report prepared by Vee: Dharmesh Zhu Under the Supervision of: Dr. Cameron Londono D.O. First contact with patient: 17:34 Chief Complaint: CONSTIPATION Stated Complaint: NAUSEA, RUQ PAIN, CONSTIPATION History of Present Illness The patient is a 27 year old female who presents to the Emergency Room with complaints of constant RUQ abdominal pain that radiates to her stomach beginning two days ago. The patient states she has been extremely constipated and nausea. She reports she was evaluated for a cough, sorethroat, 99.5 degree fever, a cough, and post nasal drip before her abdominal pain started two days ago. The patient notes she was told she had an elevated WBC level. She states she developed nausea two days ago with her abdominal pain. The patient reports she was recently around her aunt that was diagnosed with influenza B. She notes she cannot sleep because of her pain. The patient states her last normal bowel movement was two days ago, and it was very hard and small. She reports she has not been able to eat because she is nauseous. The patient notes she has a history of suspected gallstones, but she has not been diagnosed because her symptoms presented while she was constipated. She states she has tried Mirilax, but it is not helping either. The patient reports she has a history of Mass Cell Disorder, and she takes a large amount of antihistamines. Source of History: patient Onset: two days ago Position: abdomen (RUQ), other (stomach) Timing: constant Associated Symptoms: + fevers, + sorethroat, + cough, + nausea Note: Associated symptoms: constipation, post nasal drip, elevated WBC level, trouble sleeping Review of Systems See HPI for pertinent positives & negatives. A total of 10 systems reviewed and were otherwise negative. 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 (26) Right ovarian cyst (27) Right ovarian cyst (28) Rupture of ovarian cyst (29) Seizure-like activity (30) Suicidal ideation (31) Syncope (32) Syncope (33) Vaginal discharge (34) Wrist sprain Surgical Problems: (1) History of colonoscopy Social History Problems: (1) Contusion of multiple sites Family History Cancer Diabetes mellitus Endometriosis MOTHER Heart disease Hypertrophic cardiomyopathy FATHER aunt Kidney disease Kidney stones Lung disease PCOS SISTER Social History Smoking Status: Never Smoker Alcohol Use: none Drug Use: none Marital Status: Housing Status: lives with family Occupation Status: unemployed Current/Historical Medications Scheduled Bupropion Hcl (Wellbutrin Xl), 150 MG PO QAM Fluticasone Furoate-Vilanterol (Breo Ellipta 200-25 Mcg/INH), 1 PUFF INH DAILY Loratadine (Claritin), 20 MG PO DAILY Midodrine Hcl (Midodrine Hcl), 10 MG PO TID Montelukast Sod (Montelukast Sodium), 10 MG PO BID Pantoprazole (Protonix), 40 MG PO DAILY Prazosin HCl (Prazosin HCl), 1 MG PO HS Ranitidine Hcl (Zantac), 300 MG PO BID Topiramate (Topamax), 100 MG PO BID Scheduled PRN Albuterol Hfa (Ventolin Hfa), 2 PUFFS INH Q4-6HRS PRN for Wheezing Albuterol Sulf (Proventil 0.083% 2.5MG/3ML), 3 ML NEB QID PRN for SOB/Wheezing Uulggjbezq-Evkbvcpwdlyst-Jraet (Fioricet), 2 CAP PO UD PRN for Headache Diphenhydramine Hcl (Benadryl Allergy), 25-75 MG PO UD PRN for ALLERGIC REACTION Epinephrine (Epipen), 0.3 MG IM UD PRN for ALLERGIC REACTION Lorazepam (Lorazepam), 1 MG PO Q6H PRN for Anxiety Ondansetron Hcl (Zofran), 4 MG PO Q6H PRN for Nausea Prochlorperazine Maleate (Compazine), 10 MG PO QID PRN for Nausea Sumatriptan Succinate (Imitrex), 100 MG PO UD PRN for Migraine Sumatriptan Succinate (Imitrex Statdose), 6 MG IM UD PRN for Migraine Trazodone HCl (Trazodone HCl), 100 MG PO HS PRN for Sleep Allergies Coded Allergies: Cetirizine (Verified Allergy, Severe, anapyhylaxis, 08/22/17) Hydroxyzine (Verified Allergy, Severe, anaphylaxis, 08/22/17) Quercetin (Verified Allergy, Severe, ANAPHYLAXIS, 08/22/17) Ziprasidone (Verified Allergy, Severe, Anaphylaxis, 08/22/17) Reported by PT Aripiprazole (Verified Allergy, Intermediate, ., 08/22/17) BEE STING (Verified Allergy, Intermediate, anaphylaxis, 08/22/17) Lurasidone (Verified Allergy, Intermediate, ., 08/22/17) Cefaclor (Verified Allergy, Mild, ANAPHYLAXIS, 08/22/17) CI Pigment Blue 63 (Verified Allergy, Unknown, ANAPHYLAXIS, 08/22/17) Clonazepam (Verified Allergy, Unknown, anaphylaxis, 08/22/17) Dexlansoprazole (Verified Allergy, Unknown, ANAPHYLAXIS, 08/22/17) Doxycycline (Verified Allergy, Unknown, UNKNOWN, 08/22/17) Ethylenediamine (Unverified Allergy, Unknown, ANAPHYLAXIS, 08/22/17) Iodinated Diagnostic Agents (Verified Allergy, Unknown, ANAPHYLAXIS, ) must have pretreats, Red Dye (Verified Allergy, Unknown, ANAPHYLAXIS, 08/22/17) Uncoded Nonscreenable Allergen (Verified Allergy, Unknown, ETHLYENEDIAMINE DIHYDROCHLORIDE- A BAND HEAD SAW OPERATOR GENERIC DRUGS, 08/22/17) ETHLYENEDIAMINE DIHYDROCHLORIDE- A BAND HEAD SAW OPERATOR GENERIC DRUGS: CAUSES ANAPHYLAXIS Physical Exam Vital Signs Date Time Temp Pulse Resp B/P (MAP) Pulse Ox O2 Delivery O2 Flow Rate FiO2 08/22/17 19:07 36.6 87 18 124/61 99 Room Air 08/22/17 17:28 36.8 103 20 117/56 98 Room Air Physical Exam CONSTITUTIONAL/VITAL SIGNS: Reviewed / noted above. GENERAL: Non-toxic in appearance. INTEGUMENTARY: Warm, dry, and Mccarthy. HEAD: Normocephalic. EYES: without scleral icterus or trauma. ENT/OROPHARYNX: clear and moist. LYMPHADENOPATHY/NECK: Is supple without lymphadenopathy or meningismus. RESPIRATORY: Lungs clear and equal. CARDIOVASCULAR: Regular rate and rhythm. GI/ABDOMEN: Soft and nontender. No organomegaly or pulsatile mass. No rebound or guarding. Normal bowel sounds. EXTREMITIES: Warm and well perfused. BACK: No CVA tenderness. NEUROLOGICAL: Intact without focal deficits. PSYCHIATRIC: normal affect. MUSCULOSKELETAL: Normally developed with good muscle tone. Medical Decision & Procedures ER Provider Diagnostic Interpretation: X ray results and stated below per my interpretation and radiology interpretation. ABDOMEN 2VIEW W/PA CHEST RTN CLINICAL HISTORY: ABDOMINAL PAIN/GI pain. Nausea. COMPARISON STUDY: No previous studies for comparison. FINDINGS: The soft tissues, psoas shadows, renal outlines and intestinal gas pattern appear normal. There is no evidence for bowel obstruction. There is no evidence for free intraperitoneal air. No abnormal abdominal calcifications are seen. A frontal view of the chest was performed and is unremarkable. IMPRESSION: Normal study. The above report was generated using voice recognition software. It may contain grammatical, syntax or spelling errors. Electronically signed by: Larry Ocampo M.D. 08/22/2017 6:45 PM Dictated Date/Time: 08/22/2017 6:43 PM Laboratory Results 08/22/17 18:01 Red Blood Count 4.97, Mean Corpuscular Volume 83.7, Mean Corpuscular Hemoglobin 30.0, Mean Corpuscular Hemoglobin Concent 35.8, Mean Platelet Volume 9.0, Neutrophils (%) (Auto) 62.4, Lymphocytes (%) (Auto) 29.4, Monocytes (%) (Auto) 7.4, Eosinophils (%) (Auto) 0.4, Basophils (%) (Auto) 0.1, Neutrophils # (Auto) 6.01, Lymphocytes # (Auto) 2.83, Monocytes # (Auto) 0.71, Eosinophils # (Auto) 0.04, Basophils # (Auto) 0.01 08/22/17 18:01 Test 08/22/17 18:01 White Blood Count 9.63 K/uL (4.8-10.8) Red Blood Count 4.97 M/uL (4.2-5.4) Hemoglobin 14.9 g/dL (12.0-16.0) Hematocrit 41.6 % (37-47) Mean Corpuscular Volume 83.7 fL (80-100) Mean Corpuscular Hemoglobin 30.0 pg (25-34) Mean Corpuscular Hemoglobin Concent 35.8 g/dl (32-36) Platelet Count 168 K/uL (130-400) Mean Platelet Volume 9.0 fL (7.4-10.4) Neutrophils (%) (Auto) 62.4 % Lymphocytes (%) (Auto) 29.4 % Monocytes (%) (Auto) 7.4 % Eosinophils (%) (Auto) 0.4 % Basophils (%) (Auto) 0.1 % Neutrophils # (Auto) 6.01 K/uL (1.4-6.5) Lymphocytes # (Auto) 2.83 K/uL (1.2-3.4) Monocytes # (Auto) 0.71 K/uL (0.11-0.59) Eosinophils # (Auto) 0.04 K/uL (0-0.5) Basophils # (Auto) 0.01 K/uL (0-0.2) RDW Standard Deviation 37.8 fL (36.4-46.3) RDW Coefficient of Variation 12.5 % (11.5-14.5) Immature Granulocyte % (Auto) 0.3 % Immature Granulocyte # (Auto) 0.03 K/uL (0.00-0.02) Anion Gap 10.0 mmol/L (3-11) Est Creatinine Clear Calc Drug Dose 82.3 ml/min Estimated GFR () 87.9 Estimated GFR (Non- 75.9 BUN/Creatinine Ratio 13.4 (10-20) Calcium Level 9.3 mg/dl (8.5-10.1) Total Bilirubin 0.4 mg/dl (0.2-1) Direct Bilirubin 0.1 mg/dl (0-0.2) Aspartate Amino Transf (AST/SGOT) 12 U/L (15-37) Alanine Aminotransferase (ALT/SGPT) 20 U/L (12-78) Alkaline Phosphatase 85 U/L (45-117) Total Protein 6.8 gm/dl (6.4-8.2) Albumin 4.0 gm/dl (3.4-5.0) Lipase 124 U/L (73-393) Laboratory results as stated above per my review. ED Course 1737: Previous medical records were reviewed. The patient was evaluated in room C09. A complete history and physical examination was performed. 1905: On reevaluation, the patient is resting comfortably. I discussed the results and findings with the patient. She verbalized agreement of the treatment plan. The patient was discharged home. Medical Decision Differential considered: pancreatitis, hepatitis, or acute cholecystitis, AAA, UTI, pyelonephritis, kidney stones, appendicitis, diverticulitis, shingles, bowel obstruction mesenteric ischemia, intussusception, hernia, testicular torsion, ovarian torsion, ruptured ovarian cyst, ectopic , . This is a 27-year-old female who presents to the ED with a chief complaint of constipation. The patient is reporting some extreme constipation. She reports pain in her upper stomach intermittently. She has also some nausea. She has multiple allergies. She has frequent visits to the emergency department. She had a CT scan of her abdomen and pelvis at [facility] 2 days ago that was completely normal. The patient states that she has had decreased appetite and decreased by mouth intake recently. Her CBC is unremarkable, chemistry panel was unremarkable. Potassium was slightly low. Acute abdominal series did not show acute process. Her exam was unremarkable for any abnormalities. The patient was told the results. She was felt to be stable for discharge. Medication Reconcilliation Current Medication List: was personally reviewed by me Blood Pressure Screening Patient's blood pressure: Normal blood pressure Blood pressure disposition: Did not require urgent referral Impression Primary Impression: Constipation Scribe Attestation The scribe's documentation has been prepared under my direction and personally reviewed by me in its entirety. I confirm that the note above accurately reflects all work, treatment, procedures, and medical decision making performed by me. Departure Information Dispostion Home / Self-Care Referrals Hoa Moeller D.O. (PCP) Forms HOME CARE DOCUMENTATION FORM, IMPORTANT VISIT INFORMATION Patient Instructions My [facility] Additional Instructions Talk to your specialist in [place] to see what medication you are able to take for constipation.
[2017-08-22 19:07] VITALS: BP 124/61; PULSE 87; TEMP 36.6; O2SAT 99
[2017-08-22] MEDS ORDERED: RANI300T PO (20:25)
[2017-08-22] MEDS ORDERED: SNG10 PO (20:25)
[2017-08-22] MEDS ORDERED: ALBINS/ NEB (20:25)
[2017-08-22] MEDS ORDERED: ATV1 PO (20:25)
[2017-08-22] MEDS ORDERED: PANT40TA PO (20:26)
[2017-08-22] MEDS ORDERED: SUMA6KIT IM (22:35)
[2017-08-22] MEDS ORDERED: DSY50 PO (23:25)
[2017-08-22] MEDS ORDERED: ONDA4TAB46 PO (23:25)
[2017-08-22] MEDS ORDERED: TOPI100T34 PO (23:25)
== END 2017-08-22 19:20 | disposition home or self-care (01) ==
LOC: C.EDB 17:26 → C.EDC 19:20
DX: K59.00 Constipation, unspecified (principal); J45.909 Unspecified asthma, uncomplicated; Z91.81 History of falling; Z98.890 Other specified postprocedural states; Z83.3 Family history of diabetes mellitus; Z84.2 Family history of other diseases of the genitourinary system; Z82.49 Family history of ischemic heart disease and other diseases of the circulatory system; Z84.1 Family history of disorders of kidney and ureter; Z83.49 Family history of other endocrine, nutritional and metabolic diseases

== ENCOUNTER 2017-09-11 16:20 | Emergency (ER) | payer OTHER ==
[~2017-09-11] VITALS: Ht 165.1 cm; Wt 80.0 kg
[~2017-09-11 16:20] MED LIST changes: +ALBINS/ NEB; +ATV1 PO; +DSY50 PO; +ONDA4TAB46 PO; +PANT40TA PO; -PRED20TA PO; +RANI300T PO; +SNG10 PO; +SUMA6KIT IM; +TOPI100T34 PO
[2017-09-11 16:26] VITALS: TEMP 37; Ht 165.1 cm; Wt 80.0 kg
[2017-09-11] MEDS ORDERED: SODIUM CHLORIDE 0.9% 1000ML 1,000 ML IV STA ×2 (16:33→18:26)
[2017-09-11] MEDS ORDERED: FAMOTIDINE 20MG/5ML IV PUSH IV STA (16:33)
[2017-09-11] MEDS ORDERED: ONDANSETRON INJ 2 MG/ML 2 ML VIAL IV STA (16:33)
[2017-09-11 17:23] LABS: BASO % 0.4 %; BASO ABS # 0.02 K/uL (0-0.2); EOS % 0.9 %; EOS ABS # 0.05 K/uL (0-0.5); HEMATOCRIT 42.8 % (37-47); HEMOGLOBIN 15.1 g/dL (12.0-16.0); LYMPH % 36.5 %; LYMPH ABS # 2.01 K/uL (1.2-3.4); MEAN CELL VOLUME 83.8 fL (80-100); MEAN CORPUSCULAR HEMOGLOBIN 29.5 pg (25-34); MEAN CORPUSCULAR HGB CONC 35.3 g/dl (32-36); MEAN PLATELET VOLUME 9.1 fL (7.4-10.4); MONO % 9.4 %; MONO ABS # 0.52 K/uL (0.11-0.59); NEUT % 52.8 %; NEUT ABS # 2.91 K/uL (1.4-6.5); PLATELET COUNT 207 K/uL (130-400); RED CELL DISTRIBUTION WIDTH CV 12.8 % (11.5-14.5); RED CELL DISTRIBUTION WIDTH SD 38.8 fL (36.4-46.3); WHITE BLOOD COUNT 5.51 K/uL (4.8-10.8)
[2017-09-11 17:44] LABS: ALBUMIN 4.1 gm/dl (3.4-5.0); CALCIUM 9.5 mg/dl (8.5-10.1); CREATININE 1.1 mg/dl (0.60-1.20); POTASSIUM 3.5 mmol/L (3.5-5.1)
[2017-09-11 17:46] LABS: TOTAL PROTEIN 7.3 gm/dl (6.4-8.2)
[2017-09-11 18:12] LABS: INFLUENZA B ANTIGEN Neg for Influ B (NEG)
[2017-09-11] MEDS ORDERED: FEXO1TAB46 PO (18:24)
[2017-09-11] MEDS ORDERED: OSELTAMIVIR PHOSPHATE 75 MG CAP PO STA (18:26)
[2017-09-11] MEDS ORDERED: ONDA4TAB10 SL (18:36)
[2017-09-11] MEDS ORDERED: OSEL75CA23 PO (18:36)
--- NOTE | 2017-09-11 18:38 | EMERGENCY ROOM VISIT NOTE ---
History Report prepared by Vee: Rosio Erwin Under the Supervision of: Dr. Cliff France M.D. First contact with patient: 16:26 Chief Complaint: ABDOMINAL PAIN Stated Complaint: ILLNESS History of Present Illness The patient is a 27 year old female who presents to the Emergency Room with complaints of intermittent abdominal pain starting 3 days ago. The pain is all over her abdomen, but mostly in her upper abdomen. She states that the pain is excruciating. It occurs after eating. She has never had this pain before. She reports nausea. She had diarrhea last night which was unusual for her. She has been sick recently. She reports cough, congestion, and body aches for the past 4 days. She denies any vomiting. Her has had a cold recently. The patient has a history of mast cell activation syndrome. She is on Shanell and Benadryl. She has not had any mast cell reactions recently. She still has her gallbladder. She has not been on prednisone recently. She has not been drinking well. Source of History: patient Onset: 3 days ago Position: abdomen Symptom Intensity: excruciating Quality: other (pain) Timing: intermittent Modifying Factors (Worsening): eating Associated Symptoms: + cough, + nausea, + diarrhea, No vomiting Note: Pt reports congestion and body aches. Review of Systems See HPI for pertinent positives and negatives. A total of ten systems were reviewed and were otherwise negative. 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 (26) Right ovarian cyst (27) Right ovarian cyst (28) Rupture of ovarian cyst (29) Seizure-like activity (30) Suicidal ideation (31) Syncope (32) Syncope (33) Vaginal discharge (34) Wrist sprain Surgical Problems: (1) History of colonoscopy Social History Problems: (1) Contusion of multiple sites Family History Cancer Diabetes mellitus Endometriosis MOTHER Heart disease Hypertrophic cardiomyopathy FATHER aunt Kidney disease Kidney stones Lung disease PCOS SISTER Social History Smoking Status: Never Smoker Alcohol Use: none Drug Use: none Marital Status: Housing Status: lives with family Occupation Status: unemployed Current/Historical Medications Scheduled Bupropion Hcl (Wellbutrin Xl), 150 MG PO QAM Fexofenadine Hcl (Shanell), 360 MG PO BID Fluticasone Furoate-Vilanterol (Breo Ellipta 200-25 Mcg/INH), 1 PUFF INH DAILY Loratadine (Claritin), 20 MG PO DAILY Midodrine Hcl (Midodrine Hcl), 10 MG PO TID Montelukast Sod (Montelukast Sodium), 10 MG PO BID Ondasetron Odt (Zofran Odt), 4 MG SL Q6H Oseltamivir Phosphate (Tamiflu), 75 MG PO BID Pantoprazole (Protonix), 40 MG PO DAILY Prazosin HCl (Prazosin HCl), 1 MG PO HS Ranitidine Hcl (Zantac), 300 MG PO BID Topiramate (Topamax), 100 MG PO BID Scheduled PRN Albuterol Hfa (Ventolin Hfa), 2 PUFFS INH Q4-6HRS PRN for Wheezing Albuterol Sulf (Proventil 0.083% 2.5MG/3ML), 3 ML NEB QID PRN for SOB/Wheezing Xfqvrtwbpt-Zdvozpwrjtwiz-Xsawz (Fioricet), 2 CAP PO UD PRN for Headache Diphenhydramine Hcl (Benadryl Allergy), 25-75 MG PO UD PRN for ALLERGIC REACTION Epinephrine (Epipen), 0.3 MG IM UD PRN for ALLERGIC REACTION Lorazepam (Lorazepam), 1 MG PO Q6H PRN for Anxiety Ondansetron Hcl (Zofran), 4 MG PO Q6H PRN for Nausea Prochlorperazine Maleate (Compazine), 10 MG PO QID PRN for Nausea Sumatriptan Succinate (Imitrex), 100 MG PO UD PRN for Migraine Sumatriptan Succinate (Imitrex Statdose), 6 MG IM UD PRN for Migraine Trazodone HCl (Trazodone HCl), 100 MG PO HS PRN for Sleep Allergies Coded Allergies: Cetirizine (Verified Allergy, Severe, anapyhylaxis, 09/11/17) Hydroxyzine (Verified Allergy, Severe, anaphylaxis, 09/11/17) Quercetin (Verified Allergy, Severe, ANAPHYLAXIS, 09/11/17) Ziprasidone (Verified Allergy, Severe, Anaphylaxis, 09/11/17) Reported by PT Aripiprazole (Verified Allergy, Intermediate, ., 09/11/17) BEE STING (Verified Allergy, Intermediate, anaphylaxis, 09/11/17) Lurasidone (Verified Allergy, Intermediate, ., 09/11/17) Cefaclor (Verified Allergy, Mild, ANAPHYLAXIS, 09/11/17) CI Pigment Blue 63 (Verified Allergy, Unknown, ANAPHYLAXIS, 09/11/17) Clonazepam (Verified Allergy, Unknown, anaphylaxis, 09/11/17) Dexlansoprazole (Verified Allergy, Unknown, ANAPHYLAXIS, 09/11/17) Doxycycline (Verified Allergy, Unknown, UNKNOWN, 09/11/17) Ethylenediamine (Unverified Allergy, Unknown, ANAPHYLAXIS, 09/11/17) Iodinated Diagnostic Agents (Verified Allergy, Unknown, ANAPHYLAXIS, ) must have pretreats, Red Dye (Verified Allergy, Unknown, ANAPHYLAXIS, 09/11/17) Uncoded Nonscreenable Allergen (Verified Allergy, Unknown, ETHLYENEDIAMINE DIHYDROCHLORIDE- A SWIMMING POOL SERVICEPERSON GENERIC DRUGS, 09/11/17) ETHLYENEDIAMINE DIHYDROCHLORIDE- A SWIMMING POOL SERVICEPERSON GENERIC DRUGS: CAUSES ANAPHYLAXIS Physical Exam Vital Signs Date Time Temp Pulse Resp B/P (MAP) Pulse Ox O2 Delivery O2 Flow Rate FiO2 09/11/17 20:16 68 16 125/73 96 09/11/17 18:58 68 16 125/73 96 Room Air 09/11/17 16:36 54 09/11/17 16:26 37.0 70 16 125/73 99 Room Air Physical Exam GENERAL: Awake, alert, fatigued-appearing, in no distress HENT: Normocephalic, atraumatic. Dry mucous membranes. Oropharynx unremarkable. EYES: Normal conjunctiva. Sclera non-icteric. NECK: Supple. No nuchal rigidity. FROM. No JVD. RESPIRATORY: Clear to auscultation. CARDIAC: Regular rate, normal rhythm. Extremities warm and well perfused. Pulses equal. ABDOMEN: Soft, non-distended. Mild epigastric and RUQ discomfort. No discrete tenderness. No Dueñas's sign. No peritoneal signs. No rebound or guarding. No masses. RECTAL: Deferred. MUSCULOSKELETAL: Chest examination reveals no tenderness. The back is symmetrical on inspection without obvious abnormality. There is no CVA tenderness to palpation. No joint edema. LOWER EXTREMITIES: Calves are equal size bilaterally and non-tender. No edema. No discoloration. NEURO: Normal sensorium. No sensory or motor deficits noted. SKIN: No rash or jaundice noted. Bedside ultrasound shows no gallstones, no pericholecystic fluid. Medical Decision & Procedures Laboratory Results 09/11/17 17:08 Red Blood Count 5.11, Mean Corpuscular Volume 83.8, Mean Corpuscular Hemoglobin 29.5, Mean Corpuscular Hemoglobin Concent 35.3, Mean Platelet Volume 9.1, Neutrophils (%) (Auto) 52.8, Lymphocytes (%) (Auto) 36.5, Monocytes (%) (Auto) 9.4, Eosinophils (%) (Auto) 0.9, Basophils (%) (Auto) 0.4, Neutrophils # (Auto) 2.91, Lymphocytes # (Auto) 2.01, Monocytes # (Auto) 0.52, Eosinophils # (Auto) 0.05, Basophils # (Auto) 0.02 09/11/17 17:08 Test 09/11/17 17:08 09/11/17 17:28 09/11/17 18:16 White Blood Count 5.51 K/uL (4.8-10.8) Red Blood Count 5.11 M/uL (4.2-5.4) Hemoglobin 15.1 g/dL (12.0-16.0) Hematocrit 42.8 % (37-47) Mean Corpuscular Volume 83.8 fL (80-100) Mean Corpuscular Hemoglobin 29.5 pg (25-34) Mean Corpuscular Hemoglobin Concent 35.3 g/dl (32-36) Platelet Count 207 K/uL (130-400) Mean Platelet Volume 9.1 fL (7.4-10.4) Neutrophils (%) (Auto) 52.8 % Lymphocytes (%) (Auto) 36.5 % Monocytes (%) (Auto) 9.4 % Eosinophils (%) (Auto) 0.9 % Basophils (%) (Auto) 0.4 % Neutrophils # (Auto) 2.91 K/uL (1.4-6.5) Lymphocytes # (Auto) 2.01 K/uL (1.2-3.4) Monocytes # (Auto) 0.52 K/uL (0.11-0.59) Eosinophils # (Auto) 0.05 K/uL (0-0.5) Basophils # (Auto) 0.02 K/uL (0-0.2) RDW Standard Deviation 38.8 fL (36.4-46.3) RDW Coefficient of Variation 12.8 % (11.5-14.5) Immature Granulocyte % (Auto) 0.0 % Immature Granulocyte # (Auto) 0.00 K/uL (0.00-0.02) Anion Gap 7.0 mmol/L (3-11) Est Creatinine Clear Calc Drug Dose 81.0 ml/min Estimated GFR () 80.2 Estimated GFR (Non- 69.2 BUN/Creatinine Ratio 8.6 (10-20) Calcium Level 9.5 mg/dl (8.5-10.1) Total Bilirubin 0.5 mg/dl (0.2-1) Direct Bilirubin 0.1 mg/dl (0-0.2) Aspartate Amino Transf (AST/SGOT) 14 U/L (15-37) Alanine Aminotransferase (ALT/SGPT) 25 U/L (12-78) Alkaline Phosphatase 92 U/L (45-117) Total Protein 7.3 gm/dl (6.4-8.2) Albumin 4.1 gm/dl (3.4-5.0) Lipase 136 U/L (73-393) Influenza Type A Antigen Neg for Influ A (NEG) Influenza Type B Antigen Neg for Influ B (NEG) Urine Color YELLOW Urine Appearance CLEAR (CLEAR) Urine pH 7.0 (4.5-7.5) Urine Specific [place] 1.008 (1.000-1.030) Urine Protein NEG (NEG) Urine Glucose (UA) NEG (NEG) Urine Ketones NEG (NEG) Urine Occult Blood NEG (NEG) Urine Nitrite NEG (NEG) Urine Bilirubin NEG (NEG) Urine Urobilinogen NEG (NEG) Urine Leukocyte Esterase NEG (NEG) Urine Test NEG (NEG) Laboratory results reviewed by me Medications Administered Medications (Trade) Dose Ordered Sig/Geeta Route Start Time Stop Time Status Last Admin Dose Admin Sodium Chloride 1,000 ml @ 999 mls/hr Q1H1M STAT IV 09/11/17 16:33 09/11/17 17:33 DC 09/11/17 17:25 999 MLS/HR Ondansetron HCl (Zofran Inj) 4 mg NOW STAT IV 09/11/17 16:33 09/11/17 16:37 DC 09/11/17 17:25 4 MG Famotidine (Pepcid 20mg Iv Push) 20 mg NOW STAT IV 09/11/17 16:33 09/11/17 16:37 DC 09/11/17 17:25 20 MG Sodium Chloride 1,000 ml @ 999 mls/hr Q1H1M STAT IV 09/11/17 18:26 09/11/17 19:26 DC 09/11/17 18:35 999 MLS/HR Oseltamivir Phosphate (Tamiflu Cap) 75 mg NOW STAT PO 09/11/17 18:26 09/11/17 18:28 DC 09/11/17 18:58 75 MG ED Course 1627: The patient was evaluated in room B4B. A complete history and physical exam was performed. 1816: I reevaluated the patient. Bedside ultrasound was performed. Discussed results and discharge instructions: She verbalized understanding and agreement. The patient is ready for discharge. Medical Decision I reviewed the patient's past medical history, medications, and the nursing notes as described above. Differential diagnosis: Etiologies such as appendicitis, diverticulitis, PUD, biliary pathology, UTI, pancreatitis, obstruction, mesenteric ischemia, aortic pathology, infections, inflammatory bowel disease, renal colic, viral syndrome, influenza as well as others were entertained. The patient is a 27 y/o woman with a pmhx of mast cell activation syndrome who presents to the emergency department with upper abdominal pain, n/v, body aches over the past 4 days per HPI. On arrival the patient is fatigued but in NAD, AFVSS. Labs unremarkable including WBC wnl. Chemistry unremarkable. UA negative. Influenza Ag screen negative. Bedside RUQ US negative for gallstones or pericholecystic fluid. Patient feeling improved after IVF, zofran, pepcid. While Flu screen negative will treat empirically with Tamiflu given high prevalence in the community and patient's comorbidities of mast cell activation syndrome. Findings and plan for follow-up reviewed with patient. Patient agreeable and d/c'd per discharge instructions. Medication Reconcilliation Current Medication List: was personally reviewed by me Blood Pressure Screening Patient's blood pressure: Normal blood pressure Blood pressure disposition: Did not require urgent referral Impression Primary Impression: Viral syndrome Scribe Attestation The scribe's documentation has been prepared under my direction and personally reviewed by me in its entirety. I confirm that the note above accurately reflects all work, treatment, procedures, and medical decision making performed by me. Departure Information Dispostion Home / Self-Care Prescriptions Oseltamivir Phosphate (Tamiflu) 75 Mg Cap 75 MG PO BID, #10 CAP Prov: Cliff France M.D. 09/11/17 Ondasetron Odt (ZOFRAN ODT) 4 Mg Tab 4 MG SL Q6H for Nausea, #10 TAB Prov: Cliff France M.D. 09/11/17 Referrals Hoa Moeller D.O. (PCP) Patient Instructions ED Viral Syndrome, [facility] Additional Instructions Please follow up with your primary care physician in the next 1-3 days for re- evaluation. You likely have a viral illness, which may be flu (although your screen was negative today) Otherwise, your exam, lab results, bedside ultrasound did not show signs of an emergent condition at this time. Acetaminophen for pain and fevers as needed. Tamiflu as directed. Zofran as needed for nausea. Continue your current medications. Drink plenty of fluids to ensure hydration. Return to the emergency department for worsening symptoms as described in the accompanying instructions.
[2017-09-11 20:16] VITALS: BP 125/73; PULSE 68; O2SAT 96
== END 2017-09-11 20:16 | disposition home or self-care (01) ==
LOC: EDBD 16:20 → C.EDB 16:21
DX: B34.9 Viral infection, unspecified (principal); D89.40 Mast cell activation, unspecified; J45.909 Unspecified asthma, uncomplicated; K58.9 Irritable bowel syndrome, unspecified; Z79.51 Long term (current) use of inhaled steroids; Z88.8 Allergy status to other drugs, medicaments and biological substances; Z91.048 Other nonmedicinal substance allergy status; Z88.1 Allergy status to other antibiotic agents; Z91.030 Bee allergy status; Z91.041 Radiographic dye allergy status; Z83.3 Family history of diabetes mellitus; Z84.2 Family history of other diseases of the genitourinary system; Z82.49 Family history of ischemic heart disease and other diseases of the circulatory system; Z84.1 Family history of disorders of kidney and ureter; Z83.6 Family history of other diseases of the respiratory system

== ENCOUNTER 2017-10-18 20:19 | Emergency (ER) | payer OTHER ==
[~2017-10-18] VITALS: Ht 165.1 cm; Wt 68.0 kg
[~2017-10-18 20:19] MED LIST changes: +FEXO1TAB46 PO; +ONDA4TAB10 SL; +OSEL75CA23 PO
[2017-10-18 20:29] VITALS: TEMP 36.9; Ht 165.1 cm; Wt 68.0 kg
[2017-10-18] MEDS ORDERED: METHYLPREDNISOLONE 125 MG VIAL IV STA (20:40)
[2017-10-18] MEDS ORDERED: DiphenhydrAMINE HCL 50 MG/ML VIAL IV STA (20:40)
[2017-10-18 21:13] LABS: BASO % 0.3 %; BASO ABS # 0.03 K/uL (0-0.2); EOS % 0.7 %; EOS ABS # 0.07 K/uL (0-0.5); HEMATOCRIT 41.4 % (37-47); HEMOGLOBIN 14.8 g/dL (12.0-16.0); IG# 0.01 K/uL (0.00-0.02); LYMPH % 42.6 %; LYMPH ABS # 4.26 K/uL (1.2-3.4); MEAN CELL VOLUME 82.5 fL (80-100); MEAN CORPUSCULAR HEMOGLOBIN 29.5 pg (25-34); MEAN CORPUSCULAR HGB CONC 35.7 g/dl (32-36); MEAN PLATELET VOLUME 9.4 fL (7.4-10.4); MONO % 6.7 %; MONO ABS # 0.67 K/uL (0.11-0.59); NEUT % 49.6 %; NEUT ABS # 4.95 K/uL (1.4-6.5); PLATELET COUNT 298 K/uL (130-400); RED CELL DISTRIBUTION WIDTH CV 13.3 % (11.5-14.5); RED CELL DISTRIBUTION WIDTH SD 40.4 fL (36.4-46.3); WHITE BLOOD COUNT 9.99 K/uL (4.8-10.8)
[2017-10-18 21:30] LABS: CALCIUM 9.5 mg/dl (8.5-10.1); CREATININE 1.05 mg/dl (0.60-1.20); POTASSIUM 3.2 mmol/L (3.5-5.1)
[2017-10-18] MEDS ORDERED: POTASSIUM CHLORIDE 10 MEQ TABCR PO STA (21:46)
[2017-10-18 21:47] VITALS: BP 134/54; PULSE 80; O2SAT 100
--- NOTE | 2017-10-18 22:52 | EMERGENCY ROOM VISIT NOTE ---
History Report prepared by Vee: Genaro Rainey Under the Supervision of: Dr. Bro Goldman M.D. First contact with patient: 20:40 Chief Complaint: ALLERGIC REACTION Stated Complaint: ANAPHYLAZIS STILL HAVING COUGH NAUSEA History of Present Illness The patient is a 27 year old female who presents to the Emergency Room with complaints of an episodic allergic reaction at 1914 today. Per boyfriend, the patient reacted to a jenise of cold air which caused her to be short of breath. The patient has a history of mast cell activation syndrome. She has respiratory and stomach problems. Per boyfriend, the patient was given two epinephrine injections at 1914. He states the patient's initial injection came from what he thought was a "bad lot". She states that her HR returned to normal after the second epinephrine injection. She states that it felt like her throat was closing off. She states that her breathing has become mildly better. She was not given Benadryl. The patient states that her specialist in [place] had placed her on a preservative-free plan. She is not to have any medications that have preservative in them with minor exceptions explained on the specialists note. She notes mild abdominal pain. She notes diarrhea every now and then, though denies any current diarrhea. Per boyfriend, the patient had hives last night, although the patient states she does not get skin reactions. She denies any chance of . The patient also has a history of asthma. She states that she had half a granola bar 15 minutes prior to the first epinephrine injection. She states that she has had that type of granola bar before without issue. She states that she can react to anything at any given time. She denies any issues with Solu-Medrol. Source of History: patient, spouse/significant other Onset: 1914 today Position: other (global) Quality: other (allergic reaction) Timing: other (episodic ) Associated Symptoms: + SOB (mild), + abdominal pain (mild), No diarrhea Review of Systems See HPI for pertinent positives & negatives. A total of 10 systems reviewed and were otherwise negative. 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 (26) Right ovarian cyst (27) Right ovarian cyst (28) Rupture of ovarian cyst (29) Seizure-like activity (30) Suicidal ideation (31) Syncope (32) Syncope (33) Vaginal discharge (34) Wrist sprain Surgical Problems: (1) History of colonoscopy Social History Problems: (1) Contusion of multiple sites Family History Cancer Diabetes mellitus Endometriosis MOTHER Heart disease Hypertrophic cardiomyopathy FATHER aunt Kidney disease Kidney stones Lung disease PCOS SISTER Social History Smoking Status: Never Smoker Alcohol Use: none Drug Use: none Marital Status: Housing Status: lives with family Occupation Status: unemployed Current/Historical Medications Scheduled Bupropion Hcl (Wellbutrin Xl), 150 MG PO QAM Fexofenadine Hcl (Shanell), 360 MG PO BID Fluticasone Furoate-Vilanterol (Breo Ellipta 200-25 Mcg/INH), 1 PUFF INH DAILY Loratadine (Claritin), 20 MG PO DAILY Midodrine Hcl (Midodrine Hcl), 10 MG PO TID Montelukast Sod (Montelukast Sodium), 10 MG PO BID Ondasetron Odt (Zofran Odt), 4 MG SL Q6H Oseltamivir Phosphate (Tamiflu), 75 MG PO BID Pantoprazole (Protonix), 40 MG PO DAILY Prazosin HCl (Prazosin HCl), 1 MG PO HS Ranitidine Hcl (Zantac), 300 MG PO BID Topiramate (Topamax), 100 MG PO BID Scheduled PRN Albuterol Hfa (Ventolin Hfa), 2 PUFFS INH Q4-6HRS PRN for Wheezing Albuterol Sulf (Proventil 0.083% 2.5MG/3ML), 3 ML NEB QID PRN for SOB/Wheezing Yluhcwawbm-Esqepmcaykvnv-Qlrlq (Fioricet), 2 CAP PO UD PRN for Headache Diphenhydramine Hcl (Benadryl Allergy), 25-75 MG PO UD PRN for ALLERGIC REACTION Epinephrine (Epipen), 0.3 MG IM UD PRN for ALLERGIC REACTION Lorazepam (Lorazepam), 1 MG PO Q6H PRN for Anxiety Ondansetron Hcl (Zofran), 4 MG PO Q6H PRN for Nausea Prochlorperazine Maleate (Compazine), 10 MG PO QID PRN for Nausea Sumatriptan Succinate (Imitrex), 100 MG PO UD PRN for Migraine Sumatriptan Succinate (Imitrex Statdose), 6 MG IM UD PRN for Migraine Trazodone HCl (Trazodone HCl), 100 MG PO HS PRN for Sleep Allergies Coded Allergies: Cetirizine (Verified Allergy, Severe, anapyhylaxis, 09/11/17) Hydroxyzine (Verified Allergy, Severe, anaphylaxis, 09/11/17) Quercetin (Verified Allergy, Severe, ANAPHYLAXIS, 09/11/17) Ziprasidone (Verified Allergy, Severe, Anaphylaxis, 09/11/17) Reported by PT Aripiprazole (Verified Allergy, Intermediate, ., 09/11/17) BEE STING (Verified Allergy, Intermediate, anaphylaxis, 09/11/17) Lurasidone (Verified Allergy, Intermediate, ., 09/11/17) Cefaclor (Verified Allergy, Mild, ANAPHYLAXIS, 09/11/17) CI Pigment Blue 63 (Verified Allergy, Unknown, ANAPHYLAXIS, 09/11/17) Clonazepam (Verified Allergy, Unknown, anaphylaxis, 09/11/17) Dexlansoprazole (Verified Allergy, Unknown, ANAPHYLAXIS, 09/11/17) Doxycycline (Verified Allergy, Unknown, UNKNOWN, 09/11/17) Ethylenediamine (Unverified Allergy, Unknown, ANAPHYLAXIS, 09/11/17) Iodinated Diagnostic Agents (Verified Allergy, Unknown, ANAPHYLAXIS, ) must have pretreats, Red Dye (Verified Allergy, Unknown, ANAPHYLAXIS, 09/11/17) Uncoded Nonscreenable Allergen (Verified Allergy, Unknown, ETHLYENEDIAMINE DIHYDROCHLORIDE- A CHIEF OPERATOR HYDROFORMER GENERIC DRUGS, 09/11/17) ETHLYENEDIAMINE DIHYDROCHLORIDE- A CHIEF OPERATOR HYDROFORMER GENERIC DRUGS: CAUSES ANAPHYLAXIS Physical Exam Vital Signs Date Time Temp Pulse Resp B/P (MAP) Pulse Ox O2 Delivery O2 Flow Rate FiO2 10/18/17 21:47 80 14 134/54 100 Room Air 10/18/17 21:32 Room Air 10/18/17 20:48 101 10/18/17 20:29 36.9 102 20 110/67 95 Room Air Physical Exam Constitutional: Vital signs reviewed. The patient appears to be gasping for air. Eyes: Pupils are equal round reactive to light. Conjunctiva are noninjected. ENT: Pharynx is clear without erythema or exudate. Mucous membranes are moist. No uvula edema or glottic swelling. Neck supple without meningeal signs. Respiratory: Clear to auscultation bilaterally. Breath sounds are equal bilaterally. No stridor or wheezing. Cardiovascular: Regular rate and rhythm. No rubs or gallops. GI: Soft, nondistended and nontender. Bowel sounds are present. Musculoskeletal: No peripheral edema. No lower extremity tenderness. No urticaria. Integumentary: No cyanosis. Neurological: The patient is awake and alert. No focal deficits. Psychiatric: Anxious appearing. Medical Decision & Procedures Laboratory Results 10/18/17 20:40 Red Blood Count 5.02, Mean Corpuscular Volume 82.5, Mean Corpuscular Hemoglobin 29.5, Mean Corpuscular Hemoglobin Concent 35.7, Mean Platelet Volume 9.4, Neutrophils (%) (Auto) 49.6, Lymphocytes (%) (Auto) 42.6, Monocytes (%) (Auto) 6.7, Eosinophils (%) (Auto) 0.7, Basophils (%) (Auto) 0.3, Neutrophils # (Auto) 4.95, Lymphocytes # (Auto) 4.26, Monocytes # (Auto) 0.67, Eosinophils # (Auto) 0.07, Basophils # (Auto) 0.03 10/18/17 20:40 Test 10/18/17 20:40 White Blood Count 9.99 K/uL (4.8-10.8) Red Blood Count 5.02 M/uL (4.2-5.4) Hemoglobin 14.8 g/dL (12.0-16.0) Hematocrit 41.4 % (37-47) Mean Corpuscular Volume 82.5 fL (80-100) Mean Corpuscular Hemoglobin 29.5 pg (25-34) Mean Corpuscular Hemoglobin Concent 35.7 g/dl (32-36) Platelet Count 298 K/uL (130-400) Mean Platelet Volume 9.4 fL (7.4-10.4) Neutrophils (%) (Auto) 49.6 % Lymphocytes (%) (Auto) 42.6 % Monocytes (%) (Auto) 6.7 % Eosinophils (%) (Auto) 0.7 % Basophils (%) (Auto) 0.3 % Neutrophils # (Auto) 4.95 K/uL (1.4-6.5) Lymphocytes # (Auto) 4.26 K/uL (1.2-3.4) Monocytes # (Auto) 0.67 K/uL (0.11-0.59) Eosinophils # (Auto) 0.07 K/uL (0-0.5) Basophils # (Auto) 0.03 K/uL (0-0.2) RDW Standard Deviation 40.4 fL (36.4-46.3) RDW Coefficient of Variation 13.3 % (11.5-14.5) Immature Granulocyte % (Auto) 0.1 % Immature Granulocyte # (Auto) 0.01 K/uL (0.00-0.02) Anion Gap 9.0 mmol/L (3-11) Est Creatinine Clear Calc Drug Dose 73.1 ml/min Estimated GFR () 84.9 Estimated GFR (Non- 73.2 BUN/Creatinine Ratio 6.0 (10-20) Calcium Level 9.5 mg/dl (8.5-10.1) Laboratory results as reviewed by me. Medications Administered Medications (Trade) Dose Ordered Sig/Geeta Route Start Time Stop Time Status Last Admin Dose Admin Methylprednisolone Sodium Succinate (Solu-Medrol IV) 125 mg NOW STAT IV 10/18/17 20:40 10/18/17 20:41 DC 10/18/17 20:47 125 MG Potassium Chloride (Klor-Con M10) 40 meq NOW STAT PO 10/18/17 21:46 10/18/17 21:47 DC 10/18/17 22:00 40 MEQ ED Course 2035: The patient was evaluated in room B1. A complete history and physical exam was performed. 2039: Ordered Solu-Medrol 125 mg IV 2114: Ordered Benadryl 50 mg PO 2145: I reassessed the patient at this time. She wants to go home. I discussed the results and treatment plan with the patient. I answered all pertaining questions that she had. She expressed understanding and verbalized agreement. The patient will be discharged home. Medical Decision This is a 27-year-old female who presents with what she describes as an acute allergic reaction. I did perform a limited focused review of portions of the patient's old chart on the electronic medical record. The patient has been seen in the ED multiple times for allergic reactions earlier this year. I did evaluate the patient as noted above. I was called emergently into the room by the nurses. On initial examination the patient is retching and gasping for air. IV access was established. The patient was placed on a continuous adhesive bandage making operator. While this was happening the patient got progressively and remarkably better without any intervention. She last had her own epinephrine over an hour prior to my evaluation. Her gasping resolved and she was able to speak in a normal voice. I did review the paperwork from her specialist who stated that mast cell activation syndrome is a possibility but the testing was equivocal and that her clinician should seek other explanations as indicated. I did initially ordered Solu-Medrol 125 mg IV which she was given. She did, however, improved prior to this being given. I did order and review the patient 's blood work as noted in the electronic medical record. She does have some mild hypokalemia. She was given oral potassium. I did reassess the patient. I did discuss the test results with the patient. She is asymptomatic currently and wishes to go home. She was advised to follow-up with her doctor and discharged in good condition. Medication Reconcilliation Current Medication List: was personally reviewed by me Blood Pressure Screening Patient's blood pressure: Normal blood pressure Impression Primary Impression: Acute dyspnea Additional Impression: Hypokalemia Scribe Attestation The scribe's documentation has been prepared under my direct and personally reviewed by me in its entirety. I confirm that the note above accurately reflects all work, treatment, procedures, and medical decision making performed by me. Departure Information Dispostion Home / Self-Care Referrals Hoa Moeller D.O. (PCP) Forms HOME CARE DOCUMENTATION FORM, IMPORTANT VISIT INFORMATION Patient Instructions Hypokalemia Kevin, My [facility] Additional Instructions You have been examined and treated today on an emergency basis only. This is not a substitute for, or an effort to provide, complete comprehensive medical care. It is impossible to recognize and treat all injuries or illnesses in a single emergency department visit. It is therefore important that you follow up closely with your physician. Call as soon as possible for an appointment. Return for worsening symptoms or if you develop fever, vomiting, chest pain or any other concerning symptoms. Problem Qualifiers
== END 2017-10-18 22:00 | disposition home or self-care (01) ==
LOC: C.EDB 20:20
DX: R06.00 Dyspnea, unspecified (principal); E87.6 Hypokalemia; J45.909 Unspecified asthma, uncomplicated; D89.40 Mast cell activation, unspecified; Z91.81 History of falling; Z88.8 Allergy status to other drugs, medicaments and biological substances; Z91.030 Bee allergy status; Z91.048 Other nonmedicinal substance allergy status; Z91.041 Radiographic dye allergy status; Z98.890 Other specified postprocedural states; Z83.3 Family history of diabetes mellitus; Z84.2 Family history of other diseases of the genitourinary system; Z82.49 Family history of ischemic heart disease and other diseases of the circulatory system; Z84.1 Family history of disorders of kidney and ureter; Z83.49 Family history of other endocrine, nutritional and metabolic diseases

== ENCOUNTER 2017-11-03 11:16 | Emergency (ER) | payer OTHER ==
[~2017-11-03] VITALS: Ht 165.1 cm; Wt 68.9 kg
[2017-11-03 11:23] VITALS: Ht 165.1 cm; Wt 68.9 kg
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
[2017-11-03] MEDS ORDERED: DiphenhydrAMINE HCL 50 MG/ML VIAL IM STA ×2 (12:23→12:31)
[2017-11-03] MEDS ORDERED: ONDANSETRON 4MG OD TAB PO ONE (13:00)
[2017-11-03] MEDS ORDERED: METHYLPREDNISOLONE 125 MG VIAL IV STA (13:23)
[2017-11-03] MEDS ORDERED: SODIUM CHLORIDE 0.9% 1000ML 1,000 ML IV STA (13:23)
[2017-11-03] MEDS ORDERED: FAMOTIDINE 20MG/5ML IV PUSH IV STA (13:44)
[2017-11-03 15:46] VITALS: BP 125/55; PULSE 83; TEMP 37; O2SAT 98
== END 2017-11-03 15:46 | disposition home or self-care (01) ==
LOC: EDBD 11:16 → C.EDC 11:17
DX: R06.02 Shortness of breath (principal); J45.909 Unspecified asthma, uncomplicated; K58.9 Irritable bowel syndrome, unspecified; D89.40 Mast cell activation, unspecified; F44.5 Conversion disorder with seizures or convulsions; Z87.891 Personal history of nicotine dependence; Z87.892 Personal history of anaphylaxis; Z86.59 Personal history of other mental and behavioral disorders; Z88.8 Allergy status to other drugs, medicaments and biological substances; Z91.030 Bee allergy status; Z88.1 Allergy status to other antibiotic agents; Z91.048 Other nonmedicinal substance allergy status; Z91.041 Radiographic dye allergy status

== ENCOUNTER 2017-12-17 21:58 | Emergency (ER) | payer OTHER ==
[~2017-12-17] VITALS: Ht 170.2 cm; Wt 37.5 kg
[~2017-12-17 21:58] MED LIST changes: -ONDA4TAB10 SL; -OSEL75CA23 PO; +PROC10TA PO; -PROC1TAB5 PO
[2017-12-17 22:08] VITALS: TEMP 37.5; Ht 170.2 cm; Wt 37.5 kg
[2017-12-17 22:13] VITALS: O2SAT 98
[2017-12-17] MEDS ORDERED: MAGNESIUM SULFATE 1GM / D5W 100 ML IV STA (22:34)
[2017-12-17] MEDS ORDERED: SODIUM CHLORIDE 0.9% 1000ML 1,000 ML IV STA (22:34)
[2017-12-17] MEDS ORDERED: DiphenhydrAMINE HCL 50 MG/ML VIAL IV STA (22:34)
[2017-12-17] MEDS ORDERED: PROCHLORPERAZINE 5 MG/ML 2 ML VIAL IV STA (22:34)
--- NOTE | 2017-12-17 22:36 | EMERGENCY ROOM VISIT NOTE ---
History Report prepared by Vee: Marion Lopez Under the Supervision of: Dr. René Hernandez M.D. First contact with patient: 22:07 Chief Complaint: RESPIRATORY PROBLEMS Stated Complaint: BREATHING DIFFICULTY Nursing Triage Summary: per EMS patient had two episodes of seizure like activity prior to arrival and patient's mother treated her with two epi-pens , as this is what she normally takes for seizures. After EMS arrived on scene patient began having tachypnea and went "unresponsive" two separate times but was aroused with sternal rub. EMS gave patient duoneb en route. patient's boyfriend states she is seeking treatment for mass cell activation syndrome but has not been diagnosed with the condition yet so no providers will treat her. patient hyperventilating upon entry to ED. 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 Negative nausea. As per EMS, the patient's mother reports that she gave her daughter 2 epi-pens after 2 episodes of seizure like activity. When EMS arrived on scene, the patient began having tachypnea and was "unresponsiveness" 2 separate times but was aroused with a sternal rub. She is accompanied by her boyfriend reports that she has had migraines for the past couple of days and allergic reactions due to her mast cell activation. He also states the patient believes she has mass cell activation but has not been officially diagnosed with it. Her LNMP was 2 weeks ago and her last bowel movement was last night. 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 Review of Systems See HPI for pertinent positives and negatives. A total of ten systems were reviewed and were otherwise negative. 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 (26) Right ovarian cyst (27) Right ovarian cyst (28) Rupture of ovarian cyst (29) Seizure-like activity (30) Suicidal ideation (31) Syncope (32) Syncope (33) Vaginal discharge (34) Wrist sprain Surgical Problems: (1) History of colonoscopy Social History Problems: (1) Contusion of multiple sites Family History Cancer Diabetes mellitus Endometriosis MOTHER Heart disease Hypertrophic cardiomyopathy FATHER aunt Kidney disease Kidney stones Lung disease PCOS SISTER Social History Smoking Status: Never Smoker Alcohol Use: none Drug Use: none Marital Status: in relationship Housing Status: lives with family Occupation Status: unemployed Current/Historical Medications Scheduled Bupropion Hcl (Wellbutrin Xl), 150 MG PO QAM Epinephrine (Epipen), 0.3 MG IM UD Fexofenadine Hcl (Shanell), 360 MG PO BID Fluticasone Furoate-Vilanterol (Breo Ellipta 200-25 Mcg/INH), 1 PUFF INH DAILY Loratadine (Claritin), 20 MG PO DAILY Midodrine Hcl (Midodrine Hcl), 10 MG PO TID Montelukast Sod (Montelukast Sodium), 10 MG PO BID Pantoprazole (Protonix), 40 MG PO DAILY Prazosin HCl (Prazosin HCl), 1 MG PO HS Ranitidine Hcl (Zantac), 300 MG PO BID Topiramate (Topamax), 100 MG PO BID Scheduled PRN Albuterol Hfa (Ventolin Hfa), 2 PUFFS INH Q4-6HRS PRN for Wheezing Albuterol Sulf (Proventil 0.083% 2.5MG/3ML), 3 ML NEB QID PRN for SOB/Wheezing Rnbdmlswvo-Jaxvlynaxozus-Qhbun (Fioricet), 2 CAP PO UD PRN for Headache Diphenhydramine Hcl (Benadryl Allergy), 25-75 MG PO UD PRN for ALLERGIC REACTION Epinephrine (Epipen), 0.3 MG IM UD PRN for ALLERGIC REACTION Lorazepam (Lorazepam), 1 MG PO Q6H PRN for Anxiety Ondansetron Hcl (Zofran), 4 MG PO Q6H PRN for Nausea Prochlorperazine Maleate (Compazine), 10 MG PO QID PRN for Nausea Sumatriptan Succinate (Imitrex), 100 MG PO UD PRN for Migraine Sumatriptan Succinate (Imitrex Statdose), 6 MG IM UD PRN for Migraine Trazodone HCl (Trazodone HCl), 100 MG PO HS PRN for Sleep Allergies Coded Allergies: Cetirizine (Verified Allergy, Severe, anapyhylaxis, 12/17/17) Hydroxyzine (Verified Allergy, Severe, anaphylaxis, 12/17/17) Quercetin (Verified Allergy, Severe, ANAPHYLAXIS, 12/17/17) Ziprasidone (Verified Allergy, Severe, Anaphylaxis, 12/17/17) Reported by PT Aripiprazole (Verified Allergy, Intermediate, ., 12/17/17) BEE STING (Verified Allergy, Intermediate, anaphylaxis, 12/17/17) Lurasidone (Verified Allergy, Intermediate, ., 12/17/17) Cefaclor (Verified Allergy, Mild, ANAPHYLAXIS, 12/17/17) CI Pigment Blue 63 (Verified Allergy, Unknown, ANAPHYLAXIS, 12/17/17) Clonazepam (Verified Allergy, Unknown, anaphylaxis, 12/17/17) Dexlansoprazole (Verified Allergy, Unknown, ANAPHYLAXIS, 12/17/17) Doxycycline (Verified Allergy, Unknown, UNKNOWN, 12/17/17) Ethylenediamine (Unverified Allergy, Unknown, ANAPHYLAXIS, 12/17/17) Iodinated Diagnostic Agents (Verified Allergy, Unknown, ANAPHYLAXIS, ) must have pretreats, Red Dye (Verified Allergy, Unknown, ANAPHYLAXIS, 12/17/17) Uncoded Nonscreenable Allergen (Verified Allergy, Unknown, ETHLYENEDIAMINE DIHYDROCHLORIDE- A TRAINING AND DEVELOPMENT PROFESSIONAL GENERIC DRUGS, 12/17/17) ETHLYENEDIAMINE DIHYDROCHLORIDE- A TRAINING AND DEVELOPMENT PROFESSIONAL GENERIC DRUGS: CAUSES ANAPHYLAXIS Diphenhydramine (Unverified Adverse Reaction, Unknown, ANAPHYLAXIS, ) PT STATES THATS ITS THE PRESERVATIVES IN THE BENADRYL NOT THE DRUG BENADRYL. Physical Exam Vital Signs Date Time Temp Pulse Resp B/P (MAP) Pulse Ox O2 Delivery O2 Flow Rate FiO2 12/17/17 23:57 95 20 104/36 98 Room Air 12/17/17 22:13 98 Room Air 12/17/17 22:10 120 12/17/17 22:08 99 Room Air 12/17/17 22:08 37.5 79 22 123/39 98 Room Air Physical Exam GENERAL: Awake, alert, well-appearing, Anxious in appearance. HENT: Normocephalic, atraumatic. EYES: Normal conjunctiva. Sclera non-icteric. PERRL. No anisocoria. NECK: Supple. No nuchal rigidity. FROM. RESPIRATORY: CTAB, no rhonchi, wheezing, crackles CARDIAC: Tachycardic but regular, no MRG ABDOMEN: Soft, NTND, BS+ MSK: No chest wall TTP, no LE edema NEURO: GCS 15, CN 2-12 intact, moves all 4s on command SKIN: No rash or jaundice noted. Medical Decision & Procedures Laboratory Results 12/17/17 22:45 Red Blood Count 4.90, Mean Corpuscular Volume 82.2, Mean Corpuscular Hemoglobin 29.2, Mean Corpuscular Hemoglobin Concent 35.5, Mean Platelet Volume 9.3, Neutrophils (%) (Auto) 59.7, Lymphocytes (%) (Auto) 35.1, Monocytes (%) (Auto) 4.3, Eosinophils (%) (Auto) 0.5, Basophils (%) (Auto) 0.2, Neutrophils # (Auto) 6.63, Lymphocytes # (Auto) 3.90, Monocytes # (Auto) 0.48, Eosinophils # (Auto) 0.06, Basophils # (Auto) 0.02 12/17/17 22:45 Test 12/17/17 22:45 White Blood Count 11.11 K/uL (4.8-10.8) Red Blood Count 4.90 M/uL (4.2-5.4) Hemoglobin 14.3 g/dL (12.0-16.0) Hematocrit 40.3 % (37-47) Mean Corpuscular Volume 82.2 fL (80-100) Mean Corpuscular Hemoglobin 29.2 pg (25-34) Mean Corpuscular Hemoglobin Concent 35.5 g/dl (32-36) Platelet Count 203 K/uL (130-400) Mean Platelet Volume 9.3 fL (7.4-10.4) Neutrophils (%) (Auto) 59.7 % Lymphocytes (%) (Auto) 35.1 % Monocytes (%) (Auto) 4.3 % Eosinophils (%) (Auto) 0.5 % Basophils (%) (Auto) 0.2 % Neutrophils # (Auto) 6.63 K/uL (1.4-6.5) Lymphocytes # (Auto) 3.90 K/uL (1.2-3.4) Monocytes # (Auto) 0.48 K/uL (0.11-0.59) Eosinophils # (Auto) 0.06 K/uL (0-0.5) Basophils # (Auto) 0.02 K/uL (0-0.2) RDW Standard Deviation 40.2 fL (36.4-46.3) RDW Coefficient of Variation 13.4 % (11.5-14.5) Immature Granulocyte % (Auto) 0.2 % Immature Granulocyte # (Auto) 0.02 K/uL (0.00-0.02) Anion Gap 13.0 mmol/L (3-11) Est Creatinine Clear Calc Drug Dose 35.0 ml/min Estimated GFR () 57.9 Estimated GFR (Non- 50.0 BUN/Creatinine Ratio 11.1 (10-20) Calcium Level 9.1 mg/dl (8.5-10.1) Human Chorionic Gonadotropin, Qual NEG (NEG) Laboratory results reviewed by me Medications Administered Medications (Trade) Dose Ordered Sig/Geeta Route Start Time Stop Time Status Last Admin Dose Admin Prochlorperazine Edisylate (Compazine Inj) 10 mg NOW STAT IV 12/17/17 22:34 12/17/17 22:37 DC 12/17/17 22:42 10 MG Sodium Chloride 1,000 ml @ 999 mls/hr Q1H1M STAT IV 12/17/17 22:34 12/17/17 23:34 DC 12/17/17 22:42 999 MLS/HR Diphenhydramine HCl (Benadryl Inj) 25 mg NOW STAT IV 12/17/17 22:34 12/17/17 22:37 DC 12/17/17 22:42 25 MG Magnesium Sulfate 100 ml @ 100 mls/hr NOW STAT IV 12/17/17 22:34 5/13/18 23:33 DC 12/17/17 22:42 100 MLS/HR ED Course 0: The patient was evaluated in room C12. A complete history and physical exam was performed. 4: Ordered Magnesium Sulfate 100 ml @ 100 mls/hr IV, Benadryl Inj 25 mg IV, Sodium Chloride 1000 ml @ 999 mls/hr IV, Compazine Inj 10 mg IV 0013: I reevaluated the patient. Discussed results and discharge instructions: She verbalized understanding and agreement. The patient is ready for discharge. 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 Negative nausea. Prior records/ancillary studies reviewed. Triage Nursing notes reviewed. Additional history obtained from EMS and the patient's boyfriend. The patient's history was concerning for possible allergic reaction. Differential diagnosis: Etiologies such as allergic reaction, anaphylaxis, urticaria, Ruelas-Quoc syndrome, toxic epidermal necrolysis, erythema multiforme, cellulitis, as well as others were entertained. Patient was seen and evaluated the bedside. Patient does come in repeatedly for possible allergic reactions and/or seizure associated allergic reactions. 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 While at the bedside the patient was shaking. Soon thereafter the patient was crying and she was able to tell me her name and date of and follow commands. Given the lack of postictal. Less likely seizure. Patient did complain of some itchiness to her throat and lips. The patient is not stridulous and is clear to auscultation bilaterally. The patient does have mildly elevated heart rate however this may be related to stress. This may be some sort of allergic reaction or stress reaction. The patient did have blood work completed. Patient had normal white blood cell count. Patient creatinine and bicarb are mildly changed from priors. I believe this is likely related to her shaking. The shaking and testing of her muscles may be causing a mildly elevated lactate but again I do not believe this is related to seizures given her lack of postictal period and her ability to remember the entire event. Patient also denies any tongue biting or incontinence. Impressive test negative. Upon reassessment the patient was feeling improved. Patient was deemed suitable for outpatient follow-up and treatment at this time. Patient was given strict follow-up, discharge, and return precautions. All questions were answered. Patient was deemed suitable for outpatient follow-up at this time. Patient agreed with the plan of care and was safely discharged home. Medication Reconcilliation Current Medication List: was personally reviewed by me Blood Pressure Screening Patient's blood pressure: Low blood pressure Blood pressure disposition: Did not require urgent referral Impression Primary Impression: Allergic reaction Additional Impression: Pseudoseizure Scribe Attestation The scribe's documentation has been prepared under my direction and personally reviewed by me in its entirety. I confirm that the note above accurately reflects all work, treatment, procedures, and medical decision making performed by me. Departure Information Dispostion Home / Self-Care Prescriptions Epinephrine (EPIPEN) 0.3 Mg/0.3 Ml Inj 0.3 MG IM UD, #1 KIT Prov: René Hernandez M.D. 12/18/17 Referrals Hoa Moeller D.O. (PCP) Patient Instructions ED Allergic Reaction General Other, My [facility] Additional Instructions Please return to the emergency department if you have worsening or recurrent symptoms not amenable to at-home treatment. Please call for a follow-up appointment with her primary care physician. Please take your medications as prescribed. If you have other concerns and/or complaints please feel free to also call your primary care physician's office or return the ED for further evaluation, management, and treatment. You may take 800 mg Ibuprofen every 6 hours as needed for pain/fever with food unless told by your physician not to take NSAIDs. You may take tylenol 1000 mg every 6 hours as needed for pain/fever unless told by your physician to not take it or have liver problems. You may take motrin and tylenol separately or at the same time. Take your medications as prescribed. If taking an antibiotic consider taking a probiotic and/or eating yogurt, but at the least, please take with food as it can cause upset stomach. You have been examined and treated today on an emergency basis only. This is not a substitute for, or an effort to provide, complete comprehensive medical care. It is impossible to recognize and treat all injuries or illnesses in a single emergency department visit. It is therefore important that you follow up closely with [facility], your PCP, and/or your specialist(s). Call as soon as possible for an appointment. Thank you for your time and consideration. I look forward to speaking with you again soon. Please don't hesitate to call us if you have any questions. Problem Qualifiers Primary Impression: Allergic reaction Encounter type: initial encounter Qualified Codes: T78.40XA - Allergy, unspecified, initial encounter
[2017-12-17 22:56] LABS: HEMATOCRIT 40.3 % (37-47); HEMOGLOBIN 14.3 g/dL (12.0-16.0); MEAN CELL VOLUME 82.2 fL (80-100); MEAN CORPUSCULAR HEMOGLOBIN 29.2 pg (25-34); MEAN CORPUSCULAR HGB CONC 35.5 g/dl (32-36); MEAN PLATELET VOLUME 9.3 fL (7.4-10.4); PLATELET COUNT 203 K/uL (130-400); RED CELL DISTRIBUTION WIDTH CV 13.4 % (11.5-14.5); RED CELL DISTRIBUTION WIDTH SD 40.2 fL (36.4-46.3); WHITE BLOOD COUNT 11.11 K/uL (4.8-10.8)
[2017-12-17 23:17] LABS: CALCIUM 9.1 mg/dl (8.5-10.1); CREATININE 1.44 mg/dl (0.60-1.20); POTASSIUM 3.6 mmol/L (3.5-5.1)
[2017-12-17 23:56] LABS: BASO % 0.2 %; BASO ABS # 0.02 K/uL (0-0.2); EOS % 0.5 %; EOS ABS # 0.06 K/uL (0-0.5); IG# 0.02 K/uL (0.00-0.02); LYMPH % 35.1 %; MONO % 4.3 %; MONO ABS # 0.48 K/uL (0.11-0.59); NEUT % 59.7 %; NEUT ABS # 6.63 K/uL (1.4-6.5)
[2017-12-17 23:57] VITALS: BP 104/36; PULSE 95; O2SAT 98
[2017-12-18] MEDS ORDERED: EPP3/2 IM (00:16)
== END 2017-12-18 00:25 | disposition home or self-care (01) ==
LOC: EDBD 21:58 → C.EDC 22:02
DX: T78.40XA Allergy, unspecified, initial encounter (principal); X58.XXXA Exposure to other specified factors, initial encounter; F44.5 Conversion disorder with seizures or convulsions; J45.909 Unspecified asthma, uncomplicated; F41.9 Anxiety disorder, unspecified; F31.9 Bipolar disorder, unspecified; D89.40 Mast cell activation, unspecified; Z79.899 Other long term (current) drug therapy; Z79.52 Long term (current) use of systemic steroids; Z88.1 Allergy status to other antibiotic agents; Z88.8 Allergy status to other drugs, medicaments and biological substances; Z91.030 Bee allergy status; Z91.02 Food additives allergy status; Z91.041 Radiographic dye allergy status